=== PATIENT | female | born 1945 | race African-American/Black ===

== ENCOUNTER 2016-09-26 15:16 | Inpatient (IN) | payer MEDICARE, OTHER ==
[~2016-09-26] VITALS: Ht 160 cm; Wt 92.5 kg
[~2016-09-26 15:16] MED LIST: ASPI-605 PO; BUME1TAB16 PO; CARI350T27 PO; Hydralazine Hcl PO; Isosorbide Dinitrate PO; LORA1TAB PO; METF500T4 PO; METO25TA20 PO; NIFE10CA2 PO
[2016-09-26] MEDS ORDERED: FERR-58 PO (16:00)
[2016-09-26] MEDS ORDERED: FURO40TA5 PO (16:00)
[2016-09-26] MEDS ORDERED: ATOR10TA PO (16:00)
[2016-09-26] MEDS ORDERED: AMLO10TA2 PO (16:00)
[2016-09-26] MEDS ORDERED: HYDR100T27 PO (16:00)
[2016-09-26] MEDS ORDERED: CARV25TA2 PO (16:00)
[2016-09-26] MEDS ORDERED: LEVO500T15 PO (16:00)
[2016-09-26 16:02] LABS: ANION GAP 12 (5-14); CALCIUM, SERUM 8.7 mg/dL (8.5-10.1); CARBON DIOXIDE 26 mmol/L (21-32); CHLORIDE 111 mmol/L (98-107); CREATININE 1.6 mg/dL (0.6-1.3); GLUCOSE 197 mg/dL (74-106); POTASSIUM 3.4 mmol/L (3.5-5.1); SODIUM SERUM 145 mmol/L (136-145); UREA NITROGEN, BLOOD 30 mg/dL (7-18)
[2016-09-26] MEDS ORDERED: ISOS40TA16 PO (16:02)
[2016-09-26] MEDS ORDERED: CLON1PAT2 TD (16:03)
[2016-09-26 16:07] LABS: WHITE BLOOD COUNT (AUTO) 6.8 K/uL (4.3-11.0)
[2016-09-26 16:08] LABS: BASOPHILS % (AUTO) 0.5 % (0.0-2.0); DIFF TOTAL % 100 %; EOSINOPHILS # (AUTO) 0.9 /CMM (0.0-0.7); EOSINOPHILS % (AUTO) 12.8 % (0.0-6.0); HEMATOCRIT 28 % (33-45); HEMOGLOBIN 9.3 g/dL (11.5-14.8); LYMPHOCYTES # (AUTO) 0.7 /CMM (0.8-4.8); LYMPHOCYTES % (AUTO) 9.9 % (20.0-44.0); MEAN CORPUSCULAR HEMOGLOBIN 28 PG (26.0-33.0); MEAN CORPUSCULAR HGB CONC 33 g/dl (31.0-36.0); MEAN CORPUSCULAR VOLUME 84 fL (82-100); MONOCYTES # (AUTO) 0.4 /CMM (0.1-1.30); MONOCYTES % (AUTO) 5.9 % (2.0-12.0); NEUTROPHILS # (AUTO) 4.8 /CMM (1.8-8.9); NEUTROPHILS % (AUTO) 70.9 % (43.0-81.0); PLATELET COUNT (AUTO) 248 /CMM (150-450); RED BLOOD CELL COUNT(AUTO) 3.36 MIL/uL (4.0-5.2)
[2016-09-26 16:10] LABS: INR 0.96 (0.87-1.13); PROTHROMBIN TIME 10.1 SECS (9.5-12.7)
[2016-09-26 16:12] LABS: TROPONIN I < 0.017 ng/mL (0.00-0.056)
[2016-09-26 16:14] LABS: ALANINE AMINOTRANSFERASE 14 U/L (12-78); ALBUMIN 3.1 g/dL (3.4-5.0); ASPARTATE AMINOTRANSFERASE 15 U/L (15-37); BILIRUBIN,DIRECT 0.1 mg/dL (0.0-0.2); BILIRUBIN,TOTAL 0.5 mg/dL (0.2-1.0); INDIRECT BILIRUBIN 0.4 mg/dL (0.0-1.1)
[2016-09-26 16:23] LABS: LACTIC ACID 1.1 mmol/L (0.4-2.0)
[2016-09-26] MEDS ORDERED: NITROGLYCERIN PACKET 1 GM PACKET ONE (16:27)
[2016-09-26] MEDS ORDERED: ASPIRIN 81 MG TAB.CHEW ONE (16:27)
[2016-09-26] MEDS ORDERED: FUROSEMIDE 40 MG/4 ML VIAL ONE (16:27)
[2016-09-26] MEDS ORDERED: FUROSEMIDE 40 MG/4 ML VIAL IV ONE (16:30)
[2016-09-26] MEDS ORDERED: ASPIRIN 81 MG TAB.CHEW PO ONE (16:30)
[2016-09-26] MEDS ORDERED: NITROGLYCERIN PACKET 1 GM PACKET TD ONE (16:30)
[2016-09-26] MEDS ORDERED: hydrALAZINE HCL IV 20 MG VIAL ONE (16:50)
[2016-09-26] MEDS ORDERED: hydrALAZINE HCL IV 20 MG VIAL IV ONE (17:00)
[2016-09-26 19:00] VITALS: BP 230/76
[2016-09-26] MEDS ORDERED: ONDANSETRON HCL/PF 4 MG/2 ML VIAL IVP PRN (19:00)
[2016-09-26] MEDS ORDERED: MAG HYDROX/AL HYDROX/SIMETH 30 ML UDC PO PRN (19:00)
[2016-09-26] MEDS ORDERED: Z GUARD REMEDY 2 OZ OINT TP PRN (19:00)
[2016-09-26] MEDS ORDERED: ACETAMINOPHEN 325 MG TABLET PO PRN (19:00)
[2016-09-26] MEDS ORDERED: MAGNESIUM HYDROXIDE 30 ML UDC PO PRN (19:00)
[2016-09-26] MEDS ORDERED: HYDROCODONE/APAP 5/325MG 1 EACH TABLET PO PRN (19:00)
[2016-09-26 20:00] VITALS: BP 211/105
[2016-09-26] MEDS ORDERED: LORAZEPAM 1 MG TABLET PO STA (22:03)
[2016-09-26] MEDS ORDERED: CARVEDILOL 12.5 MG TABLET PO STA (22:03)
[2016-09-26] MEDS ORDERED: hydrALAZINE HCL 50 MG TABLET PO STA (22:03)
[2016-09-26] MEDS ORDERED: hydrALAZINE HCL 50 MG TABLET ONE (22:08)
[2016-09-26] MEDS ORDERED: CARVEDILOL 12.5 MG TABLET ONE (22:09)
[2016-09-26] MEDS ORDERED: LORAZEPAM 1 MG TABLET ONE (22:10)
[2016-09-26] MEDS: ATORVASTATIN 10 MG TABLET PO SCH (22:20)
[2016-09-26] MEDS: FERROUS SULFATE (325 MG) 325 MG/TAB TABLET PO SCH (22:20)
[2016-09-26] MEDS: ENOXAPARIN SODIUM 40 MG/0.4 ML DISP.SYRIN SQ SCH (22:23)
[2016-09-27] VITALS: BP 162/74
[2016-09-27 04:00] VITALS: BP 168/81
[2016-09-27 07:01] LABS: BASOPHILS % (AUTO) 0.5 % (0.0-2.0); DIFF TOTAL % 100 %; EOSINOPHILS # (AUTO) 0.9 /CMM (0.0-0.7); EOSINOPHILS % (AUTO) 13.8 % (0.0-6.0); HEMATOCRIT 27 % (33-45); HEMOGLOBIN 8.6 g/dL (11.5-14.8); LYMPHOCYTES # (AUTO) 0.8 /CMM (0.8-4.8); LYMPHOCYTES % (AUTO) 11.3 % (20.0-44.0); MEAN CORPUSCULAR HEMOGLOBIN 28 PG (26.0-33.0); MEAN CORPUSCULAR HGB CONC 33 g/dl (31.0-36.0); MEAN CORPUSCULAR VOLUME 85 fL (82-100); MONOCYTES # (AUTO) 0.4 /CMM (0.1-1.30); MONOCYTES % (AUTO) 6.3 % (2.0-12.0); NEUTROPHILS # (AUTO) 4.6 /CMM (1.8-8.9); NEUTROPHILS % (AUTO) 68.1 % (43.0-81.0); PLATELET COUNT (AUTO) 232 /CMM (150-450); WHITE BLOOD COUNT (AUTO) 6.8 K/uL (4.3-11.0)
[2016-09-27 07:38] LABS: CALCIUM, SERUM 8.5 mg/dL (8.5-10.1); CREATININE 1.5 mg/dL (0.6-1.3); PHOSPHORUS 4.4 mg/dL (2.5-4.9); POTASSIUM 3.6 mmol/L (3.5-5.1)
[2016-09-27 08:00] VITALS: BP 190/83
[2016-09-27] MEDS: ASPIRIN EC 81 MG TABLET.DR PO SCH (08:13)
[2016-09-27] MEDS: FERROUS SULFATE (325 MG) 325 MG/TAB TABLET PO SCH ×2 (08:13→21:32)
[2016-09-27] MEDS: hydrALAZINE HCL 50 MG TABLET PO SCH ×3 (08:14→16:25)
[2016-09-27] MEDS: PANTOPRAZOLE 40 MG TABLET.DR PO SCH (08:14)
[2016-09-27] MEDS: ISOSORBIDE DINITRATE (20MG) 20 MG TABLET PO SCH ×3 (08:14→16:25)
[2016-09-27] MEDS: AMLODIPINE BESYLATE 10 MG TABLET PO SCH (08:16)
[2016-09-27] MEDS: CARVEDILOL 12.5 MG TABLET PO SCH ×2 (08:16→21:32)
[2016-09-27] MEDS: FUROSEMIDE 40 MG/4 ML VIAL IV SCH ×3 (08:30→16:25)
[2016-09-27] MEDS: POTASSIUM CHLORIDE 20 MEQ TAB.PRT.SR PO SCH ×2 (08:33→10:26)
[2016-09-27] MEDS: NITROGLYCERIN 30 GM TUBE TP SCH ×2 (08:35→21:34)
[2016-09-27] MEDS ORDERED: FUROSEMIDE 40 MG/4 ML VIAL IV SCH (09:00)
[2016-09-27 16:00] VITALS: BP 157/74
[2016-09-27] MEDS ORDERED: IBUPROFEN 600 MG TABLET PO PRN (16:00)
[2016-09-27] MEDS: MORPHINE SULFATE INJ 2 MG/ML DISP.SYRIN IV PRN (19:17)
[2016-09-27 20:00] VITALS: BP 139/65
[2016-09-27] MEDS: ATORVASTATIN 10 MG TABLET PO SCH (21:32)
[2016-09-27] MEDS: ENOXAPARIN SODIUM 40 MG/0.4 ML DISP.SYRIN SQ SCH (21:33)
[2016-09-27] MEDS: ZOLPIDEM TARTRATE 5 MG TABLET PO PRN (23:02)
[2016-09-28 04:00] VITALS: BP 143/74
[2016-09-28 07:24] LABS: BASOPHILS % (AUTO) 0.3 % (0.0-2.0); DIFF TOTAL % 100 %; EOSINOPHILS # (AUTO) 0.9 /CMM (0.0-0.7); EOSINOPHILS % (AUTO) 10.1 % (0.0-6.0); HEMATOCRIT 24 % (33-45); HEMOGLOBIN 7.9 g/dL (11.5-14.8); LYMPHOCYTES # (AUTO) 0.7 /CMM (0.8-4.8); LYMPHOCYTES % (AUTO) 8.6 % (20.0-44.0); MEAN CORPUSCULAR HEMOGLOBIN 28 PG (26.0-33.0); MEAN CORPUSCULAR HGB CONC 33 g/dl (31.0-36.0); MEAN CORPUSCULAR VOLUME 85 fL (82-100); MONOCYTES # (AUTO) 0.5 /CMM (0.1-1.30); MONOCYTES % (AUTO) 6.2 % (2.0-12.0); NEUTROPHILS # (AUTO) 6.4 /CMM (1.8-8.9); NEUTROPHILS % (AUTO) 74.8 % (43.0-81.0); PLATELET COUNT (AUTO) 242 /CMM (150-450); RED BLOOD CELL COUNT(AUTO) 2.89 MIL/uL (4.0-5.2); WHITE BLOOD COUNT (AUTO) 8.6 K/uL (4.3-11.0)
[2016-09-28 07:46] LABS: ALBUMIN 2.8 g/dL (3.4-5.0); BILIRUBIN,TOTAL 0.4 mg/dL (0.2-1.0); CALCIUM, SERUM 8.3 mg/dL (8.5-10.1); CREATININE 1.9 mg/dL (0.6-1.3); PHOSPHORUS 4.3 mg/dL (2.5-4.9); POTASSIUM 3.9 mmol/L (3.5-5.1); TOTAL PROTEIN, SERUM 6.4 g/dL (6.4-8.2)
[2016-09-28 08:00] VITALS: BP 153/59
[2016-09-28] MEDS: AMLODIPINE BESYLATE 10 MG TABLET PO SCH (08:04)
[2016-09-28] MEDS: ASPIRIN EC 81 MG TABLET.DR PO SCH (08:04)
[2016-09-28] MEDS: FERROUS SULFATE (325 MG) 325 MG/TAB TABLET PO SCH ×2 (08:05→21:10)
[2016-09-28] MEDS: hydrALAZINE HCL 50 MG TABLET PO SCH ×3 (08:05→16:59)
[2016-09-28] MEDS: CARVEDILOL 12.5 MG TABLET PO SCH ×2 (08:05→21:10)
[2016-09-28] MEDS: PANTOPRAZOLE 40 MG TABLET.DR PO SCH (08:05)
[2016-09-28] MEDS: ISOSORBIDE DINITRATE (20MG) 20 MG TABLET PO SCH ×3 (08:06→17:00)
[2016-09-28] MEDS: NITROGLYCERIN 30 GM TUBE TP SCH ×2 (08:06→21:10)
[2016-09-28 10:23] LABS: IRON, SERUM 42 ug/dl (50-175); PERCENT SATURATION 16 % (14-33); TOTAL IRON BINDING CAPACITY 256 ug/dl (250-450)
[2016-09-28] MEDS: METOLAZONE 2.5 MG TABLET PO SCH (11:19)
[2016-09-28] MEDS: EPOETIN ALFA (10,000 UNIT) 10,000 UNIT/ML VIAL SQ SCH (11:20)
[2016-09-28 16:00] VITALS: BP 124/56
[2016-09-28 20:00] VITALS: BP 142/54
[2016-09-28] MEDS: ATORVASTATIN 10 MG TABLET PO SCH (21:11)
[2016-09-28] MEDS: ENOXAPARIN SODIUM 40 MG/0.4 ML DISP.SYRIN SQ SCH (21:12)
[2016-09-28] MEDS: ZOLPIDEM TARTRATE 5 MG TABLET PO PRN (23:03)
[2016-09-29 04:00] VITALS: BP 149/63
[2016-09-29] MEDS: MORPHINE SULFATE INJ 2 MG/ML DISP.SYRIN IV PRN ×2 (05:59→23:28)
[2016-09-29 08:00] VITALS: BP 148/61
[2016-09-29 10:52] LABS: BASOPHILS % (AUTO) 0.4 % (0.0-2.0); DIFF TOTAL % 100 %; EOSINOPHILS # (AUTO) 0.6 /CMM (0.0-0.7); EOSINOPHILS % (AUTO) 7.1 % (0.0-6.0); HEMATOCRIT 25 % (33-45); LYMPHOCYTES # (AUTO) 0.7 /CMM (0.8-4.8); LYMPHOCYTES % (AUTO) 8.5 % (20.0-44.0); MEAN CORPUSCULAR HEMOGLOBIN 27 PG (26.0-33.0); MEAN CORPUSCULAR HGB CONC 33 g/dl (31.0-36.0); MEAN CORPUSCULAR VOLUME 84 fL (82-100); MONOCYTES # (AUTO) 0.7 /CMM (0.1-1.30); MONOCYTES % (AUTO) 8.1 % (2.0-12.0); NEUTROPHILS # (AUTO) 6.4 /CMM (1.8-8.9); NEUTROPHILS % (AUTO) 75.9 % (43.0-81.0); PLATELET COUNT (AUTO) 223 /CMM (150-450); RED BLOOD CELL COUNT(AUTO) 2.91 MIL/uL (4.0-5.2); WHITE BLOOD COUNT (AUTO) 8.5 K/uL (4.3-11.0)
[2016-09-29 11:11] LABS: CALCIUM, SERUM 8.3 mg/dL (8.5-10.1); CREATININE 1.8 mg/dL (0.6-1.3); PHOSPHORUS 3.5 mg/dL (2.5-4.9); POTASSIUM 3.7 mmol/L (3.5-5.1)
[2016-09-29] MEDS: CARVEDILOL 12.5 MG TABLET PO SCH ×2 (11:59→22:01)
[2016-09-29] MEDS: ASPIRIN EC 81 MG TABLET.DR PO SCH (11:59)
[2016-09-29] MEDS: ISOSORBIDE DINITRATE (20MG) 20 MG TABLET PO SCH ×3 (11:59→18:03)
[2016-09-29] MEDS: hydrALAZINE HCL 50 MG TABLET PO SCH ×3 (12:00→18:03)
[2016-09-29] MEDS: METOLAZONE 2.5 MG TABLET PO SCH (12:00)
[2016-09-29] MEDS: PANTOPRAZOLE 40 MG TABLET.DR PO SCH (12:00)
[2016-09-29] MEDS: FERROUS SULFATE (325 MG) 325 MG/TAB TABLET PO SCH ×2 (12:00→22:00)
[2016-09-29] MEDS: EPOETIN ALFA (10,000 UNIT) 10,000 UNIT/ML VIAL SQ SCH (12:03)
[2016-09-29] MEDS: AMLODIPINE BESYLATE 10 MG TABLET PO SCH (12:06)
[2016-09-29] MEDS: NITROGLYCERIN 30 GM TUBE TP SCH ×2 (12:11→22:01)
[2016-09-29 12:42] VITALS: BP 187/77
[2016-09-29 16:00] VITALS: BP 113/68
[2016-09-29 20:00] VITALS: BP_SYST 114; BP_SYST 119; BP_DIAS 58
[2016-09-29] MEDS: ATORVASTATIN 10 MG TABLET PO SCH (22:00)
[2016-09-29] MEDS: ENOXAPARIN SODIUM 40 MG/0.4 ML DISP.SYRIN SQ SCH (22:10)
[2016-09-30 04:00] VITALS: BP 112/49
[2016-09-30 06:28] LABS: BASOPHILS % (AUTO) 0.4 % (0.0-2.0); DIFF TOTAL % 100 %; EOSINOPHILS # (AUTO) 0.6 /CMM (0.0-0.7); EOSINOPHILS % (AUTO) 7.6 % (0.0-6.0); HEMATOCRIT 24 % (33-45); HEMOGLOBIN 7.8 g/dL (11.5-14.8); LYMPHOCYTES % (AUTO) 12.7 % (20.0-44.0); MEAN CORPUSCULAR HEMOGLOBIN 28 PG (26.0-33.0); MEAN CORPUSCULAR HGB CONC 33 g/dl (31.0-36.0); MEAN CORPUSCULAR VOLUME 84 fL (82-100); MONOCYTES # (AUTO) 0.5 /CMM (0.1-1.30); MONOCYTES % (AUTO) 7.1 % (2.0-12.0); NEUTROPHILS # (AUTO) 5.5 /CMM (1.8-8.9); NEUTROPHILS % (AUTO) 72.2 % (43.0-81.0); PLATELET COUNT (AUTO) 192 /CMM (150-450); WHITE BLOOD COUNT (AUTO) 7.6 K/uL (4.3-11.0)
[2016-09-30 06:46] LABS: CALCIUM, SERUM 8.5 mg/dL (8.5-10.1); PHOSPHORUS 3.7 mg/dL (2.5-4.9)
[2016-09-30 08:00] VITALS: BP 136/56
[2016-09-30] MEDS: PANTOPRAZOLE 40 MG TABLET.DR PO SCH (08:06)
[2016-09-30] MEDS: CARVEDILOL 12.5 MG TABLET PO SCH (08:08)
[2016-09-30] MEDS: METOLAZONE 2.5 MG TABLET PO SCH (08:09)
[2016-09-30] MEDS: AMLODIPINE BESYLATE 10 MG TABLET PO SCH (08:09)
[2016-09-30] MEDS: ASPIRIN EC 81 MG TABLET.DR PO SCH (08:10)
[2016-09-30] MEDS: FERROUS SULFATE (325 MG) 325 MG/TAB TABLET PO SCH (08:11)
[2016-09-30] MEDS: NITROGLYCERIN 30 GM TUBE TP SCH (08:12)
[2016-09-30] MEDS: hydrALAZINE HCL 50 MG TABLET PO SCH ×2 (08:16→12:15)
[2016-09-30] MEDS: ISOSORBIDE DINITRATE (20MG) 20 MG TABLET PO SCH ×2 (08:16→12:15)
[2016-09-30] MEDS: EPOETIN ALFA (10,000 UNIT) 10,000 UNIT/ML VIAL SQ SCH (10:05)
[2016-09-30 12:15] VITALS: BP 144/60
[2016-09-30] MEDS ORDERED: BUMETANIDE (1 MG) 1 MG TABLET PO SCH (17:00)
[2016-10-02] MEDS ORDERED: CLONIDINE HCL 0.2MG/24H PTWK 1 EA PATCH TD SCH (09:00)
== END 2016-09-30 14:58 | disposition home or self-care (01) | DRG 291 ==
LOC: ER 15:21 → TELE-TD 18:23 → MEDSG1 09-27 08:58
PROVIDERS: ADMIT Internal Medicine; ATTEND Internal Medicine
DX: I13.0 Hypertensive heart and chronic kidney disease with heart failure and stage 1 through stage 4 chronic kidney disease, or unspecified chronic kidney disease (principal); I50.33 Acute on chronic diastolic (congestive) heart failure; E44.0 Moderate protein-calorie malnutrition; N17.9 Acute kidney failure, unspecified; E78.5 Hyperlipidemia, unspecified; N18.9 Chronic kidney disease, unspecified; E11.22 Type 2 diabetes mellitus with diabetic chronic kidney disease; Z90.5 Acquired absence of kidney; M54.5 Low back pain; G89.29 Other chronic pain; Z68.36 Body mass index [BMI] 36.0-36.9, adult; E66.9 Obesity, unspecified; E87.6 Hypokalemia; M47.814 Spondylosis without myelopathy or radiculopathy, thoracic region
CPT/HCPCS: 36415; 71010-TC; 76942-TC; 80048-TC; 80053-TC; 80076-TC; 82728-TC; 82962-TC; 83540-TC; 83605-TC; 83735-TC; 83880; 84100-TC; 84484-TC; 85025-TC; 85730-TC; 87040-TC; 87081-TC; 94799-TC; A4606; J0360; J0885; J1650; J1940; J2270; Z7610

== ENCOUNTER 2016-11-10 18:29 | Inpatient (IN) | payer MEDICARE, OTHER ==
[~2016-11-10] VITALS: Ht 165.1 cm; Wt 95.3 kg
[~2016-11-10 18:29] MED LIST changes: +AMLO10TA2 PO; +ATOR10TA PO; -BUME1TAB16 PO; -CARI350T27 PO; +CARV25TA2 PO; +CLON1PAT2 TD; +FERR-58 PO; +FURO40TA5 PO; +HYDR100T27 PO; -Hydralazine Hcl PO; +ISOS40TA16 PO; -Isosorbide Dinitrate PO; -LORA1TAB PO; -METF500T4 PO; -METO25TA20 PO; -NIFE10CA2 PO
--- NOTE | 2016-11-10 18:32 | NUR ---
pt ambulatory to er bed 11 c/o sob x 1 week and states worst since yesterday. hx of chf also c/o intermittent chest pain. placed on monitor. hypertensive captain's assistant. awaiting md ayoub.
--- NOTE | 2016-11-10 18:46 | NUR ---
laborer pole crew at bedside for blood draw.
[2016-11-10 18:51] LABS: BASOPHILS % (AUTO) 0.4 % (0.0-2.0); EOSINOPHILS # (AUTO) 0.3 /CMM (0.0-0.7); EOSINOPHILS % (AUTO) 4.7 % (0.0-6.0); HEMATOCRIT 29 % (33-45); HEMOGLOBIN 9.3 g/dL (11.5-14.8); LYMPHOCYTES # (AUTO) 0.9 /CMM (0.8-4.8); LYMPHOCYTES % (AUTO) 12.5 % (20.0-44.0); MEAN CORPUSCULAR HEMOGLOBIN 26 PG (26.0-33.0); MEAN CORPUSCULAR HGB CONC 33 g/dl (31.0-36.0); MEAN CORPUSCULAR VOLUME 79 fL (82-100); MONOCYTES # (AUTO) 0.5 /CMM (0.1-1.30); MONOCYTES % (AUTO) 6.5 % (2.0-12.0); NEUTROPHILS # (AUTO) 5.2 /CMM (1.8-8.9); NEUTROPHILS % (AUTO) 75.9 % (43.0-81.0); PLATELET COUNT (AUTO) 297 /CMM (150-450); RDW COEFFICIENT OF VARIATION 15.9 (11.5-15.0); WHITE BLOOD COUNT (AUTO) 6.9 K/uL (4.3-11.0)
--- NOTE | 2016-11-10 19:02 | NUR ---
dr singleton at bedside for eval.
[2016-11-10 19:05] LABS: INR 0.98 (0.87-1.13); PROTHROMBIN TIME 10.2 SECS (9.5-12.7)
--- NOTE | 2016-11-10 19:05 | NUR ---
radiology at bedside for chest xray.
[2016-11-10 19:10] LABS: TROPONIN I < 0.017 ng/mL (0.00-0.056)
[2016-11-10 19:20] LABS: ALANINE AMINOTRANSFERASE 29 U/L (12-78); ALBUMIN 3.7 g/dL (3.4-5.0); ALKALINE PHOSPHATASE 106 U/L (46-116); ASPARTATE AMINOTRANSFERASE 27 U/L (15-37); B-TYPE NATRIURETIC PEPTIDE 2359 PG/ML (0-125); BILIRUBIN,DIRECT 0.2 mg/dL (0.0-0.2); BILIRUBIN,TOTAL 0.6 mg/dL (0.2-1.0); CALCIUM, SERUM 9.4 mg/dL (8.5-10.1); CARBON DIOXIDE 27 mmol/L (21-32); CHLORIDE 109 mmol/L (98-107); CREATININE 1.5 mg/dL (0.6-1.3); GLUCOSE 151 mg/dL (74-106); POTASSIUM 3.6 mmol/L (3.5-5.1); SODIUM SERUM 145 mmol/L (136-145); TOTAL PROTEIN, SERUM 7.7 g/dL (6.4-8.2); UREA NITROGEN, BLOOD 34 mg/dL (7-18)
--- NOTE | 2016-11-10 19:50 | NUR ---
PAGED JOB CHECKER FOR [employer] DR DEJESUS
[2016-11-10] MEDS ORDERED: FUROSEMIDE 40 MG/4 ML VIAL ONE (19:56)
[2016-11-10] MEDS ORDERED: NITROGLYCERIN PACKET 1 GM PACKET ONE (19:56)
[2016-11-10] MEDS ORDERED: FUROSEMIDE 40 MG/4 ML VIAL IV ONE (20:00)
[2016-11-10] MEDS ORDERED: NITROGLYCERIN PACKET 1 GM PACKET TOP ONE (20:00)
[2016-11-10] MEDS ORDERED: MORPHINE SULFATE INJ 2 MG/ML DISP.SYRIN ONE (20:15)
--- NOTE | 2016-11-10 20:25 | NUR ---
report given to gem. pt awaiting transfer to floor.
[2016-11-10] MEDS ORDERED: MORPHINE SULFATE INJ 2 MG/ML DISP.SYRIN IV PRN ×2 (20:30→21:00)
[2016-11-10] MEDS ORDERED: MORPHINE SULFATE INJ 2 MG/ML DISP.SYRIN IV ONE (20:30)
[2016-11-10 20:40] VITALS: BP 173/94
--- NOTE | 2016-11-10 20:40 | NUR ---
ADMISSION NOTES: received report from jose barber rn. pt came in because of sob and chest discomfort, pt brought to the unit via gurney, a/o x4, on 2l via nc, respiration even and unlabored, pt stated she still have some chest discomfort 5/10 and its tolerable as she received morphine in er. oriented pt to unit policy and hourly rounding. vs taken and recorded. made comfortable. inventory of belonging completed by nella oliver. pt's own home medication sent to pharmacy. took pictures of pt's skin issues, please see skin assessment tab. ble kept offloaded. pt on tele sinus rhythm hr 83. iv access on left ac g 20 patent and flushing well, on hl. safety precautions for fall initiated, call light in reach. will continue to monitor
[2016-11-10 20:45] VITALS: BP 162/85
[2016-11-10 20:53] VITALS: BP 162/85
[2016-11-10] MEDS ORDERED: FERROUS SULFATE (325 MG) 325 MG/TAB TABLET PO SCH (21:00)
[2016-11-10] MEDS ORDERED: ACETAMINOPHEN 325 MG TABLET PO PRN (21:00)
[2016-11-10] MEDS ORDERED: Z GUARD REMEDY 2 OZ OINT TP PRN (21:00)
[2016-11-10] MEDS ORDERED: HYDROCODONE/APAP 5/325MG 1 EACH TABLET PO PRN (21:00)
[2016-11-10] MEDS ORDERED: MAGNESIUM HYDROXIDE 30 ML UDC PO PRN (21:00)
[2016-11-10] MEDS ORDERED: MAG HYDROX/AL HYDROX/SIMETH 30 ML UDC PO PRN (21:00)
[2016-11-10] MEDS ORDERED: hydrALAZINE HCL 25 MG TABLET PO PRN (21:00)
[2016-11-10] MEDS ORDERED: ONDANSETRON HCL/PF 4 MG/2 ML VIAL IVP PRN (21:00)
[2016-11-10 21:40] VITALS: BP 178/84
[2016-11-10] MEDS ORDERED: hydrALAZINE HCL 25 MG TABLET ONE (21:42)
[2016-11-10] MEDS ORDERED: FERROUS SULFATE (325 MG) 325 MG/TAB TABLET ONE (21:43)
[2016-11-10] MEDS ORDERED: ATORVASTATIN 10 MG TABLET ONE (21:44)
[2016-11-10] MEDS: ATORVASTATIN 10 MG TABLET PO SCH (21:49)
--- NOTE | 2016-11-10 21:50 | NUR ---
NET MOBILE DEVELOPER NOTES: PRN HYDRALAZINE 25MG TAB PO ADMINISTERED TO THE PT FOR BP 178/84 HR 84. PT DENIES ANY LIGHT HEADEDNESS OR DIZZINESS. EDUCATE PT REGARDING MEDICATION JOHANNY EFFECT. WILL CONTINUE TO MONITOR AND REASSESS
--- NOTE | 2016-11-10 22:00 | NUR ---
telemetry monitor notes: pt has left cw nitro bid patch
--- NOTE | 2016-11-10 22:10 | NUR ---
senior telecommunications specialist notes: pt stated she has $80.00 cedeno, when asked pt that we need to count her money, she refused, and stated she will keep it on her bag, educate pt regarding importance of counting it for documentation purposes, fair and safe inventory. however pt refused.
[2016-11-10 22:30] VITALS: BP 164/79
--- NOTE | 2016-11-10 23:48 | NUR ---
telephone betting clerk notes: reassess pt and stated she's okay for now, no pain or discomfort at this time as pt verbalized,
[2016-11-11] VITALS: BP_SYST 158; BP_DIAS 83; BP_DIAS 85
[2016-11-11 04:00] VITALS: BP 142/85
[2016-11-11 04:37] VITALS: BP 142/85
--- NOTE | 2016-11-11 06:43 | NUR ---
telemetry nurse closing notes: pt on bed, awake, remains on 2l via nc, respiration even and unlabored, denies any sob, chest pain or discomfort. left ac iv access remains patent and flushing well, on hl. on sinus rhythm hr 69. vs remains stable, needs attended. ble kept offloaded. safety precautions for fall remains engaged. call light in reach. will endorse to day rn for edgar.
[2016-11-11 06:49] LABS: BASOPHILS % (AUTO) 0.4 % (0.0-2.0); EOSINOPHILS # (AUTO) 0.4 /CMM (0.0-0.7); EOSINOPHILS % (AUTO) 5.9 % (0.0-6.0); HEMATOCRIT 23 % (33-45); HEMOGLOBIN 7.3 g/dL (11.5-14.8); LYMPHOCYTES # (AUTO) 0.8 /CMM (0.8-4.8); LYMPHOCYTES % (AUTO) 12.7 % (20.0-44.0); MEAN CORPUSCULAR HEMOGLOBIN 26 PG (26.0-33.0); MEAN CORPUSCULAR HGB CONC 32 g/dl (31.0-36.0); MEAN CORPUSCULAR VOLUME 80 fL (82-100); MONOCYTES # (AUTO) 0.5 /CMM (0.1-1.30); MONOCYTES % (AUTO) 8.8 % (2.0-12.0); NEUTROPHILS # (AUTO) 4.3 /CMM (1.8-8.9); NEUTROPHILS % (AUTO) 72.2 % (43.0-81.0); PLATELET COUNT (AUTO) 226 /CMM (150-450); RDW COEFFICIENT OF VARIATION 16.9 (11.5-15.0); RED BLOOD CELL COUNT(AUTO) 2.87 MIL/uL (4.0-5.2); WHITE BLOOD COUNT (AUTO) 5.9 K/uL (4.3-11.0)
--- NOTE | 2016-11-11 07:10 | NUR ---
PAPITO OLIVO NOTES Patient in bed, asleep, no s/sx of distress at this time, breathing even and unlabored, no sob noted, safety measures in placed, call light within reach, will continue to monitor. Addendum: 11/11/16 at 0730 by ELIZA RODRÍGUEZ RN correction: PAPITO JIMENEZ
[2016-11-11 07:33] LABS: CALCIUM, SERUM 8.4 mg/dL (8.5-10.1); CREATININE 1.5 mg/dL (0.6-1.3); MAGNESIUM 2.2 mg/dL (1.8-2.4); PHOSPHORUS 4.5 mg/dL (2.5-4.9); POTASSIUM 3.6 mmol/L (3.5-5.1)
[2016-11-11 08:00] VITALS: BP 147/80
[2016-11-11] MEDS: PANTOPRAZOLE 40 MG TABLET.DR PO SCH (09:10)
[2016-11-11] MEDS: FUROSEMIDE 40 MG/4 ML VIAL IV SCH ×3 (09:11→16:44)
[2016-11-11] MEDS: FERROUS SULFATE (325 MG) 325 MG/TAB TABLET PO SCH ×2 (09:11→20:36)
[2016-11-11] MEDS: hydrALAZINE HCL 50 MG TABLET PO SCH ×3 (09:12→16:45)
[2016-11-11] MEDS: ASPIRIN EC 81 MG TABLET.DR PO SCH (09:12)
[2016-11-11] MEDS: CARVEDILOL 12.5 MG TABLET PO SCH ×2 (09:12→20:37)
[2016-11-11] MEDS: ISOSORBIDE DINITRATE (20MG) 20 MG TABLET PO SCH ×3 (09:12→16:45)
[2016-11-11] MEDS: AMLODIPINE BESYLATE 10 MG TABLET PO SCH (09:13)
--- NOTE | 2016-11-11 09:30 | NUR ---
RN MS NOTES INFORMED WILDER SOFTWARE QUALITY TEST ENGINEER REGARDING LOW H&H RESULT, NO NEW ORDER AT THIS TIME.
[2016-11-11 13:22] LABS: FERRITIN 22 ng/mL (8-388)
--- NOTE | 2016-11-11 15:25 | NUR ---
RN MS NOTES Patient in bed, asleep but easily arousable, denies pain or discomfort at this time, no distress noted, call light within reach, will continue to monitor.
[2016-11-11 15:54] LABS: IRON, SERUM 144 ug/dl (50-175); TOTAL IRON BINDING CAPACITY 294 ug/dl (250-450)
[2016-11-11 16:00] VITALS: BP_SYST 140; BP_SYST 141; BP_DIAS 71
--- NOTE | 2016-11-11 17:08 | NUR ---
RN MS NOTES Patient's UA appears to be cloudy and with odor, patient denies pain during urination, urgency or burning sensation, afebrile, vs stable, Radha Downey WIRELESS SALES CONSULTANT made aware, and received new order for UA profile. Order noted and carried out.
--- NOTE | 2016-11-11 18:49 | NUR ---
RN MS NOTES Patient in bed, eating dinner, family at bedside, no s/sx of distress noted, patient reminded to give urine and stool sample, patient understood. Safety measures in placed, call light withinr each, will endorse to shift stacker for edgar.
[2016-11-11 20:00] VITALS: BP 144/71
--- NOTE | 2016-11-11 20:33 | NUR ---
MS/RN OPENNING NOTES RECEIVED PATIENT ALERT, ORIENTED X4, ABLE TO VERBALIZE NEEDS.FAMILY WAS AT BEDSIDE. INFORMED MEDICATION AND LABS, URINE COLLECTED AND SENT TO LAB. B/P CHECK NO S/S OF SOB OR DISTRESS. INFORMED THE NEED TO CALL FOR ASSISTANCE AT ALL TIMES. PATIENT VERBALIZE UNDERSTANDING.
[2016-11-11] MEDS: ATORVASTATIN 10 MG TABLET PO SCH (20:55)
[2016-11-11] MEDS ORDERED: ENOXAPARIN SODIUM 40 MG/0.4 ML DISP.SYRIN SQ SCH (21:00)
[2016-11-12] VITALS (9 sets, daily range): BP systolic 137–152; BP diastolic 61–78
--- NOTE | 2016-11-12 05:31 | NUR ---
MS/RN NOTES PATIENT IN BED. ABLE TO SLEEP DURING THE NIGHT. W/ NO S/S OF SOB OR DISTRESS. ALERT, ORIENTED. KEPT SAFETY INTERVENTION AT ALL TIMES.PROVIDE WARM BLANKETS. CALL LIGHTS WITHIN REACH. WILL CONTINUE TO MONITOR.
--- NOTE | 2016-11-12 06:34 | NUR ---
MS/RN CLOSING NOTES PATIENT IN BED ABLE TO SLEEP. NO S/S OF SOB OR DISTRESS. WILL CONTINUE TO MONITOR ANF ENDORSE TO AM RN REGARDING ARIAN.
--- NOTE | 2016-11-12 07:15 | NUR ---
RN MS NOTES Patient in bed, sleeping but easily arousable, no s/sx of pain or distress noted, no sob, on o2 at 2lpm via nc, needs anticipated and met, safety measures in placed, call light within reach.
[2016-11-12 07:21] LABS: BILIRUBIN,TOTAL 0.4 mg/dL (0.2-1.0); CALCIUM, SERUM 8.5 mg/dL (8.5-10.1); MAGNESIUM 2.4 mg/dL (1.8-2.4); PHOSPHORUS 4.9 mg/dL (2.5-4.9); POTASSIUM 3.6 mmol/L (3.5-5.1); TOTAL PROTEIN, SERUM 6.3 g/dL (6.4-8.2)
[2016-11-12 07:23] LABS: TROPONIN I 0.001 ng/mL (0.00-0.056)
[2016-11-12 07:48] LABS: APPEARANCE,URINE SL CLOUDY (CLEAR); BILIRUBIN,URINE NEGATIVE (NEGATIVE); BLOOD, URINE NEGATIVE Ery/uL (NEGATIVE); COLOR,URINE YELLOW (YELLOW); KETONES,URINE NEGATIVE (NEGATIVE); LEUKOCYTE ESTERASE ,URINE TRACE (NEGATIVE); NITRITE, URINE NEGATIVE (NEGATIVE); PH,URINE 5.5 (5.0-8.0); PROTEIN,URINE 2+ mg/dl (NEGATIVE); UGLUCOSE NEGATIVE (NEGATIVE); UROBILINOGEN,URINE 0.2 EU/dL (0.2)
[2016-11-12 08:11] LABS: ADD URINE CULTURE YES; BACTERIA,URINE Many /HPF (None Seen); RBC,URINE 0-2 /HPF (0-2); SQUAMOUS EPITHELIAL CELL,UR Moderate /HPF (None Seen)
[2016-11-12 08:37] LABS: BASOPHILS % (AUTO) 0.3 % (0.0-2.0); EOSINOPHILS # (AUTO) 0.4 /CMM (0.0-0.7); EOSINOPHILS % (AUTO) 5.8 % (0.0-6.0); HEMATOCRIT 22 % (33-45); HEMOGLOBIN 7.1 g/dL (11.5-14.8); LYMPHOCYTES % (AUTO) 14.2 % (20.0-44.0); MEAN CORPUSCULAR HEMOGLOBIN 26 PG (26.0-33.0); MEAN CORPUSCULAR HGB CONC 32 g/dl (31.0-36.0); MEAN CORPUSCULAR VOLUME 79 fL (82-100); MONOCYTES # (AUTO) 0.5 /CMM (0.1-1.30); MONOCYTES % (AUTO) 7.7 % (2.0-12.0); NEUTROPHILS # (AUTO) 4.8 /CMM (1.8-8.9); PLATELET COUNT (AUTO) 172 /CMM (150-450); RDW COEFFICIENT OF VARIATION 17.2 (11.5-15.0); RED BLOOD CELL COUNT(AUTO) 2.79 MIL/uL (4.0-5.2)
[2016-11-12] MEDS: PANTOPRAZOLE 40 MG TABLET.DR PO SCH (08:44)
[2016-11-12] MEDS: FERROUS SULFATE (325 MG) 325 MG/TAB TABLET PO SCH ×2 (08:44→21:06)
[2016-11-12] MEDS: ISOSORBIDE DINITRATE (20MG) 20 MG TABLET PO SCH ×3 (08:45→18:03)
[2016-11-12] MEDS: ASPIRIN EC 81 MG TABLET.DR PO SCH (08:45)
[2016-11-12] MEDS: hydrALAZINE HCL 50 MG TABLET PO SCH ×3 (08:45→18:03)
[2016-11-12] MEDS: CARVEDILOL 12.5 MG TABLET PO SCH ×2 (08:45→21:50)
[2016-11-12] MEDS: AMLODIPINE BESYLATE 10 MG TABLET PO SCH (08:46)
--- NOTE | 2016-11-12 10:10 | NUR ---
PAPITO MS NOTES Patient seen and examined by Gopal Johnson NP and received new orders for blood transfusion of 1 unit prbc. Order noted and carried out. Patient agreed to the blood transfusion.
[2016-11-12 11:24] LABS: EOSINOPHILS % (MANUAL) 5 % (0-4); LYMPHOCYTES % (MANUAL) 19 % (16-48); MONOCYTES % (MANUAL) 6 % (0-11.0); NEUTROPHILS % (MANUAL) 70 (42-76)
[2016-11-12 11:25] LABS: PLATELET ESTIMATE ADEQUATE
[2016-11-12 11:26] LABS: ANISOCYTOSIS 1+; HYPOCHROMASIA 1+
[2016-11-12 11:27] LABS: WHITE BLOOD COUNT (AUTO) 6.7 K/uL (4.3-11.0)
--- NOTE | 2016-11-12 12:00 | NUR ---
PAPITO MS NOTES Blood transfusion consent signed by patient.
[2016-11-12] MEDS ORDERED: BLOOD IV SET 1 EA INFUS.SET MC ONE (14:34)
[2016-11-12] MEDS ORDERED: IV NS 0.9% 250 ML IV ONE (14:34)
--- NOTE | 2016-11-12 15:45 | NUR ---
RN MS NOTES Blood Transfusion started at 1530 monitored for adverse reaction, no reaction noted at this time, vital signs stable. Will continue to monitor.
--- NOTE | 2016-11-12 18:06 | NUR ---
RN MS NOTES Patient completed blood transfusion, no adverse reaction noted, vital signs stable, patient is in stable condition, all due meds given as ordered,call light placed within reach, will continue to monitor.
--- NOTE | 2016-11-12 18:54 | NUR ---
RN MS NOTES Patient in bed, alert and oriented, family at bedside, no s/sx of distress, no significant change this shift, blood transfusion tolerated well, call light within reach, will endorse to continuous improvement specialist for edgar.
[2016-11-12] MEDS: ENOXAPARIN SODIUM 30 MG/0.3 ML DISP.SYRIN SQ SCH (21:05)
[2016-11-12] MEDS: ATORVASTATIN 10 MG TABLET PO SCH (21:06)
[2016-11-12] MEDS: ZOLPIDEM TARTRATE 5 MG TABLET PO PRN (22:51)
--- NOTE | 2016-11-13 06:37 | NUR ---
pt stated not sleeping well all night ,started getting SOB, back on oxygen 2 liters. deies any pain, still no bm. will continue to monitor.
[2016-11-13 07:34] LABS: BASOPHILS % (AUTO) 0.3 % (0.0-2.0); EOSINOPHILS # (AUTO) 0.4 /CMM (0.0-0.7); EOSINOPHILS % (AUTO) 5.3 % (0.0-6.0); HEMATOCRIT 25 % (33-45); HEMOGLOBIN 8.3 g/dL (11.5-14.8); LYMPHOCYTES # (AUTO) 0.9 /CMM (0.8-4.8); LYMPHOCYTES % (AUTO) 12.8 % (20.0-44.0); MEAN CORPUSCULAR HEMOGLOBIN 27 PG (26.0-33.0); MEAN CORPUSCULAR HGB CONC 33 g/dl (31.0-36.0); MEAN CORPUSCULAR VOLUME 80 fL (82-100); MONOCYTES # (AUTO) 0.4 /CMM (0.1-1.30); MONOCYTES % (AUTO) 6.3 % (2.0-12.0); NEUTROPHILS # (AUTO) 5.2 /CMM (1.8-8.9); NEUTROPHILS % (AUTO) 75.3 % (43.0-81.0); PLATELET COUNT (AUTO) 237 /CMM (150-450); RED BLOOD CELL COUNT(AUTO) 3.14 MIL/uL (4.0-5.2)
[2016-11-13 07:45] LABS: ALBUMIN 3.1 g/dL (3.4-5.0); BILIRUBIN,TOTAL 0.7 mg/dL (0.2-1.0); CALCIUM, SERUM 8.7 mg/dL (8.5-10.1); CREATININE 1.8 mg/dL (0.6-1.3); MAGNESIUM 2.4 mg/dL (1.8-2.4); PHOSPHORUS 3.7 mg/dL (2.5-4.9); POTASSIUM 3.3 mmol/L (3.5-5.1); TOTAL PROTEIN, SERUM 6.6 g/dL (6.4-8.2)
--- NOTE | 2016-11-13 07:50 | NUR ---
MS RN RECEIVED ON BED, AWAKE,ALERT,ORIENTED X4,NOT IN ANY FORM OF DISTRESS, RESPIRATIONS EVEN AND UNLABORED,NO SOB NOTED. LUNGS ARE CLEAR,ABDOMEN SOFT,POSITIVE BOWEL SOUNDS, DENIES PAIN AT THIS TIME, WILL MONITOR PATIENT'S CONDITION.
[2016-11-13 08:00] VITALS: BP 155/69
--- NOTE | 2016-11-13 08:20 | NUR ---
MS PAPITO CLEMENTS SERVED,DUE MEDS GIVEN,TOLERATED WELL.
[2016-11-13] MEDS: ASPIRIN EC 81 MG TABLET.DR PO SCH (08:42)
[2016-11-13] MEDS: FERROUS SULFATE (325 MG) 325 MG/TAB TABLET PO SCH ×2 (08:42→20:43)
[2016-11-13] MEDS: PANTOPRAZOLE 40 MG TABLET.DR PO SCH (08:42)
[2016-11-13] MEDS: AMLODIPINE BESYLATE 10 MG TABLET PO SCH (08:43)
[2016-11-13] MEDS: hydrALAZINE HCL 50 MG TABLET PO SCH ×3 (08:43→16:47)
[2016-11-13] MEDS: CARVEDILOL 12.5 MG TABLET PO SCH ×2 (08:43→20:43)
[2016-11-13] MEDS: ISOSORBIDE DINITRATE (20MG) 20 MG TABLET PO SCH ×3 (08:44→16:47)
[2016-11-13] MEDS ORDERED: BUMETANIDE INJ 8 MG in IV NS 0.9% 48 ML IV ONE (09:40)
[2016-11-13] MEDS ORDERED: IV SET PRIMARY PUMP SET 1 EA INFUS.SET MC ONE (10:10)
[2016-11-13] MEDS: POTASSIUM CHLORIDE 20 MEQ TAB.PRT.SR PO SCH ×3 (10:50→16:48)
--- NOTE | 2016-11-13 14:00 | NUR ---
MS VOLTAGE REGULATOR ASSEMBLER CALLED ,PT. WILL BE TRANSFERRED TO REHAB IN AM, FAMILY NOTIFIED.
--- NOTE | 2016-11-13 15:00 | NUR ---
MS RN WAS SEEN BY GI MD, FOR EGD,COLONOSCOPY IN AM.
[2016-11-13 16:00] VITALS: BP 149/76
[2016-11-13] MEDS ORDERED: PEG 3350/NA SULF,BICARB,CL/KCL 4,000 ML BOTTLE PO ONE (17:00)
--- NOTE | 2016-11-13 17:10 | NUR ---
MS RN LEFT MESSAGE TO DR. GÓMEZ,THAT PATIENT IS REFUSING EGD,COLONOSCOPY IN AM, TEL#[phone].
--- NOTE | 2016-11-13 17:32 | NUR ---
MS RN ON BED, O DISTRESS NOTED,ALL NEEDS ATTENDED.
[2016-11-13 20:00] VITALS: BP 149/98
[2016-11-13] MEDS: ATORVASTATIN 10 MG TABLET PO SCH (20:43)
[2016-11-13] MEDS: ENOXAPARIN SODIUM 30 MG/0.3 ML DISP.SYRIN SQ SCH (20:44)
[2016-11-13] MEDS ORDERED: CLONIDINE HCL 0.2MG/24H PTWK 1 EA PATCH TD SCH (21:00)
[2016-11-13] MEDS: ZOLPIDEM TARTRATE 5 MG TABLET PO PRN (23:38)
[2016-11-14 06:39] LABS: BASOPHILS % (AUTO) 0.1 % (0.0-2.0); EOSINOPHILS # (AUTO) 0.4 /CMM (0.0-0.7); EOSINOPHILS % (AUTO) 6.2 % (0.0-6.0); HEMATOCRIT 24 % (33-45); HEMOGLOBIN 7.7 g/dL (11.5-14.8); LYMPHOCYTES # (AUTO) 0.9 /CMM (0.8-4.8); MEAN CORPUSCULAR HEMOGLOBIN 26 PG (26.0-33.0); MEAN CORPUSCULAR HGB CONC 32 g/dl (31.0-36.0); MEAN CORPUSCULAR VOLUME 81 fL (82-100); MONOCYTES # (AUTO) 0.5 /CMM (0.1-1.30); MONOCYTES % (AUTO) 7.2 % (2.0-12.0); NEUTROPHILS # (AUTO) 4.6 /CMM (1.8-8.9); NEUTROPHILS % (AUTO) 72.5 % (43.0-81.0); PLATELET COUNT (AUTO) 221 /CMM (150-450); RDW COEFFICIENT OF VARIATION 17.4 (11.5-15.0); RED BLOOD CELL COUNT(AUTO) 2.95 MIL/uL (4.0-5.2); WHITE BLOOD COUNT (AUTO) 6.3 K/uL (4.3-11.0)
[2016-11-14 06:57] LABS: BILIRUBIN,TOTAL 0.4 mg/dL (0.2-1.0); CALCIUM, SERUM 8.5 mg/dL (8.5-10.1); CREATININE 1.8 mg/dL (0.6-1.3); MAGNESIUM 2.2 mg/dL (1.8-2.4); PHOSPHORUS 3.5 mg/dL (2.5-4.9); POTASSIUM 3.7 mmol/L (3.5-5.1); TOTAL PROTEIN, SERUM 6.4 g/dL (6.4-8.2)
--- NOTE | 2016-11-14 07:45 | NUR ---
MS RN OPENING NOTE PATIENT IS ALERT AND ORIENTED x4. NO PAIN AT THIS TIME. NO SOB OR DISTRESS NOTED. SAFETY MEASURES IMPLEMENTED. CALL LIGHT WITHIN REACH. BED LOCKED IN LOWEST POSITION WITH SIDERAILS UP x2. IV INTACT AND PATENT NO REDNESS OR SWELLING NOTED. ALL NURSING CARE NEEDS WILL BE ATTENDED TO. WILL CONTINUE TO MONITOR
[2016-11-14 08:00] VITALS: BP 150/61
[2016-11-14] MEDS: PANTOPRAZOLE 40 MG TABLET.DR PO SCH (08:52)
[2016-11-14] MEDS: ASPIRIN EC 81 MG TABLET.DR PO SCH (08:52)
[2016-11-14] MEDS: FERROUS SULFATE (325 MG) 325 MG/TAB TABLET PO SCH (08:53)
[2016-11-14] MEDS: AMLODIPINE BESYLATE 10 MG TABLET PO SCH (08:54)
[2016-11-14] MEDS: ISOSORBIDE DINITRATE (20MG) 20 MG TABLET PO SCH ×2 (08:54→13:51)
[2016-11-14] MEDS: CARVEDILOL 12.5 MG TABLET PO SCH (08:54)
[2016-11-14] MEDS: hydrALAZINE HCL 50 MG TABLET PO SCH ×2 (08:56→13:51)
[2016-11-14] MEDS ORDERED: POTASSIUM CHLORIDE 20 MEQ TAB.PRT.SR PO SCH (09:30)
[2016-11-14] MEDS ORDERED: FUROSEMIDE 80 MG TABLET PO SCH (09:30)
--- NOTE | 2016-11-14 09:40 | NUR ---
MS RN NOTE PATIENT IS BEING DISCHARGED TO [facility]. GAVE REPORT TO PAPITO WALDROP.
[2016-11-14 13:51] VITALS: BP 146/71
--- NOTE | 2016-11-14 14:15 | NUR ---
MS ONION TIER NOTE PATIENT IS ALERT AND ORIENTED x4. NO PAIN AT THIS TIME. NO SOB OR DISTRESS NOTED. DISCHARGE INSTRUCTIONS GIVEN TO PATIENT. PATIENT ABLE TO RETURN VERBAL DISCHARGE INSTRUCTIONS. PATIENT BELONGINGS WITH PATIENT AT BEDSIDE ALL ACCOUNTED FOR. PATIENT IS BEING TRANSFERRED TO [facility] VIA AMBULANCE BY TWO BAGGAGE INSPECTOR. REPORT [facility] TO PAPIT[facility]ALDROP AT [facility]. SKIN INTACT.
== END 2016-11-14 14:10 | DRG 291 ==
LOC: ER 18:31 → TELE 20:11 → MED 11-11 08:58
PROVIDERS: ADMIT Internal Medicine; ATTEND Internal Medicine
PROC: 30233N1 Transfusion of Nonautologous Red Blood Cells into Peripheral Vein, Percutaneous Approach (ICD-10-PCS; principal; 2016-11-12)
DX: I13.0 Hypertensive heart and chronic kidney disease with heart failure and stage 1 through stage 4 chronic kidney disease, or unspecified chronic kidney disease (principal); I50.33 Acute on chronic diastolic (congestive) heart failure; E44.0 Moderate protein-calorie malnutrition; N17.9 Acute kidney failure, unspecified; J90 Pleural effusion, not elsewhere classified; E87.0 Hyperosmolality and hypernatremia; K21.9 Gastro-esophageal reflux disease without esophagitis; D63.8 Anemia in other chronic diseases classified elsewhere; E78.5 Hyperlipidemia, unspecified; E11.22 Type 2 diabetes mellitus with diabetic chronic kidney disease; E66.01 Morbid (severe) obesity due to excess calories; N18.2 Chronic kidney disease, stage 2 (mild); E87.6 Hypokalemia; Z87.442 Personal history of urinary calculi; G47.33 Obstructive sleep apnea (adult) (pediatric); E88.09 Other disorders of plasma-protein metabolism, not elsewhere classified; Z68.34 Body mass index [BMI] 34.0-34.9, adult; T50.2X5A Adverse effect of carbonic-anhydrase inhibitors, benzothiadiazides and other diuretics, initial encounter; Y92.009 Unspecified place in unspecified non-institutional (private) residence as the place of occurrence of the external cause; Z82.49 Family history of ischemic heart disease and other diseases of the circulatory system; Z90.5 Acquired absence of kidney
CPT/HCPCS: 36415; 71010-TC; 80048-TC; 80053-TC; 80061-TC; 80076-TC; 81000-TC; 82728-TC; 83540-TC; 83735-TC; 83880; 84100-TC; 84484-TC; 85025-TC; 85730-TC; 86850-TC; 86921-TC; 87081-TC; 87086-TC; 87186-TC; 93307-TC; 94799-TC; 97001-TC; 97110-TC; 97116-TC; 97530-TC; A4216; A4606; J1650; J1940; J2270; J3490; J7050; P9016-BL; Z7610

== ENCOUNTER 2016-12-12 20:17 | Inpatient (IN) | payer MEDICARE, OTHER ==
[~2016-12-12] VITALS: Ht 165.1 cm; Wt 88.0 kg
--- NOTE | 2016-12-12 20:30 | NUR ---
PT CO SHARP STABBING L SIDED CP THAT RADIATES TO L SHOULDER THAT STARTED AT 0600. STATES THAT PAIN WORSEN WHEN SHE BREATHES IN DEEP. DENIES SOB AT THIS TIME. PUT PT ON MONITOR. ON MONITOR W/ TACHYCARDIA HR 100S. ON O2 2L/MIN AT THIS TIME. DR CORNEJO AT BEDSIDE FOR EVALUATION
[2016-12-12] MEDS ORDERED: IV SET PRIMARY PUMP SET 1 EA INFUS.SET MC ONE (20:33)
[2016-12-12] MEDS ORDERED: NTG 50 MG/D5W250 ML BOTTL 250 ML IV ONE ×2 (20:33→21:00)
--- NOTE | 2016-12-12 20:49 | NUR ---
DR NORMAN AT BEDSIDE FOR EVALUATION.
[2016-12-12 21:05] LABS: BASOPHILS % (AUTO) 0.3 % (0.0-2.0); EOSINOPHILS % (AUTO) 12.2 % (0.0-6.0); HEMATOCRIT 24 % (33-45); HEMOGLOBIN 7.6 g/dL (11.5-14.8); LYMPHOCYTES # (AUTO) 0.6 /CMM (0.8-4.8); LYMPHOCYTES % (AUTO) 7.2 % (20.0-44.0); MEAN CORPUSCULAR HEMOGLOBIN 25 PG (26.0-33.0); MEAN CORPUSCULAR HGB CONC 31 g/dl (31.0-36.0); MEAN CORPUSCULAR VOLUME 79 fL (82-100); MONOCYTES # (AUTO) 0.4 /CMM (0.1-1.30); MONOCYTES % (AUTO) 5.3 % (2.0-12.0); NEUTROPHILS # (AUTO) 6.1 /CMM (1.8-8.9); PLATELET COUNT (AUTO) 272 /CMM (150-450); RDW COEFFICIENT OF VARIATION 17.1 (11.5-15.0); RED BLOOD CELL COUNT(AUTO) 3.06 MIL/uL (4.0-5.2); WHITE BLOOD COUNT (AUTO) 8.1 K/uL (4.3-11.0)
[2016-12-12 21:13] LABS: CALCIUM, SERUM 8.1 mg/dL (8.5-10.1); CARBON DIOXIDE 25 mmol/L (21-32); CHLORIDE 113 mmol/L (98-107); CREATININE 1.9 mg/dL (0.6-1.3); GLUCOSE 180 mg/dL (74-106); SODIUM SERUM 145 mmol/L (136-145); UREA NITROGEN, BLOOD 30 mg/dL (7-18)
[2016-12-12 21:21] LABS: TROPONIN I < 0.017 ng/mL (0.00-0.056)
[2016-12-12 21:26] LABS: B-TYPE NATRIURETIC PEPTIDE 11133 PG/ML (0-125)
[2016-12-12] MEDS ORDERED: MAG HYDROX/AL HYDROX/SIMETH 30 ML UDC PO PRN (21:30)
[2016-12-12] MEDS ORDERED: MORPHINE SULFATE INJ 2 MG/ML DISP.SYRIN IV PRN (21:30)
[2016-12-12] MEDS ORDERED: Z GUARD REMEDY 2 OZ OINT TP PRN (21:30)
[2016-12-12] MEDS ORDERED: ENOXAPARIN SODIUM 40 MG/0.4 ML DISP.SYRIN SQ SCH (21:30)
[2016-12-12] MEDS ORDERED: hydrALAZINE HCL 10 MG TABLET PO ONE (21:30)
[2016-12-12] MEDS ORDERED: ISOSORBIDE DINITRATE (10MG) 10 MG TABLET PO SCH (21:30)
[2016-12-12] MEDS ORDERED: HYDROCODONE/APAP 5/325MG 1 EACH TABLET PO PRN (21:30)
[2016-12-12] MEDS ORDERED: MAGNESIUM HYDROXIDE 30 ML UDC PO PRN (21:30)
[2016-12-12] MEDS ORDERED: ACETAMINOPHEN 325 MG TABLET PO PRN (21:30)
--- NOTE | 2016-12-12 21:34 | NUR ---
DR GUERIN AT BEDSIDE FOR MIDLINE PLACEMENT
[2016-12-12 21:36] LABS: D-DIMER 1.41 mg/L(FEU (0.17-0.50); INR 0.97 (0.87-1.13); PROTHROMBIN TIME 10.4 SECS (9.5-12.7)
--- NOTE | 2016-12-12 21:40 | NUR ---
PT STARTED CO SOB, NOTED O2 SAT DROPPED TO 92 ON 2L/MIN. DR GUERIN STILL WORKING ON MIDLINE. WILL START NITRO SOON LINE IS INSERTED
--- NOTE | 2016-12-12 21:42 | NUR ---
PUT PT ON SIMPLE MASK AT 10L/MIN. NOW ATING AT 93-95%
--- NOTE | 2016-12-12 21:42 | NUR ---
DILIA PAGED, DR.SAM Phan MEDICAL STAFF MANAGER
--- NOTE | 2016-12-12 21:44 | NUR ---
CALLED NURSING SUP. FOR ICU BED
--- NOTE | 2016-12-12 21:45 | NUR ---
STARTED PT ON NITRO GTT AT 10MCG/MIN. WILL TITRATE PER PROTOCOL.
[2016-12-12] MEDS ORDERED: ATORVASTATIN 10 MG TABLET PO SCH (22:00)
[2016-12-12] MEDS ORDERED: PANTOPRAZOLE 40 MG VIAL IV ONE (22:00)
[2016-12-12] MEDS ORDERED: ENALAPRILAT DIHYD. (2.5MG/ML) 1.25 MG/ML VIAL IV ONE ×2 (22:07→22:30)
--- NOTE | 2016-12-12 22:07 | NUR ---
CALLED RT FOR BREATHING TREATMENT
--- NOTE | 2016-12-12 22:20 | NUR ---
ICU/RN- PT PUT IN BIPAP 12/5 R 10 FIO2 50%.
[2016-12-12 22:25] VITALS: BP 232/158
--- NOTE | 2016-12-12 22:56 | NUR ---
REPORT GIVEN TO ED FOR ICU RM 261
[2016-12-12] MEDS ORDERED: D5W IV PRN (23:00)
[2016-12-12] MEDS ORDERED: NITROPRUSSIDE SODIUM IV PRN (23:00)
--- NOTE | 2016-12-12 23:18 | NUR ---
TRANSFERRED PT IN ICU RM 261 IN STABLE CONDITION IN ACLS PROTOCOL
[2016-12-12] MEDS ORDERED: ENOXAPARIN SODIUM 40 MG/0.4 ML DISP.SYRIN SQ ONE (23:31)
[2016-12-12] MEDS ORDERED: ATORVASTATIN 10 MG TABLET ONE (23:31)
[2016-12-12] MEDS ORDERED: PANTOPRAZOLE 40 MG VIAL ONE (23:31)
[2016-12-12] MEDS ORDERED: hydrALAZINE HCL 50 MG TABLET ONE (23:31)
[2016-12-12 23:32] VITALS: BP 189/89
[2016-12-12 23:36] VITALS: BP 189/89
[2016-12-12] MEDS: FUROSEMIDE 40 MG/4 ML VIAL IV SCH (23:40)
--- NOTE | 2016-12-12 23:40 | NUR ---
ELEMENTARY SCHOOL BAND DIRECTOR NOTES RECEIVED PT ON CECELIA FROM ER, TRANSFERRED TO ICU BED. DX OF ACUTE ON CHRONIC DIASTOLIC HEART FAILURE AND ACCELERATED HYPERTENSION. A/O X4. TELE READS ST AT 121 BPM. PT PLACED ON BIPAP AT ORDERED SETTINGS, GUILLAUME WELL. MARGAUX 18G MIDLINE RUNNING NTG DRIP AT 170 MCG/MIN, SBP >190. NO SKIN ISSUES PRESENT. PT ABLE TO AMBULATE TO BSC WITH ASSISTANCE. HOB ELEVATED, SIDE RAILS X2. CALL LIGHT WITHIN EASY REACH. PT EXPRESSES MILD PAIN AT THIS TIME BUT REFUSES PAIN MEDS. WILL CARRY OUT ADMISSION ORDERS.
[2016-12-12] MEDS: hydrALAZINE HCL 50 MG TABLET PO SCH (23:56)
[2016-12-13] VITALS (53 sets, daily range): BP systolic 103–238; BP diastolic 34–162
[2016-12-13] MEDS ORDERED: LORAZEPAM 1 MG TABLET PO PRN
[2016-12-13 01:05] LABS: ABG BASE EXCESS -5.3 mmol/L; ABG OXYGEN SATURATION 98.5 % (92.0-98.5); ABG PCO2 40.4 mmHg (35.0-45.0); ABG PO2 196.2 mmHg (75.0-100.0); ABG TOTAL HEMOGLOBIN 8.2 G/dL (12.0-16.0); AaDO2 114.9 mmHg; COHb 1.3 % (0.5-1.5); MetHb 1.3 % (0.0-1.5); O2Hb 95.9 % (94.0-97.0); PEEP,BG 5 cm H2O; SITE, ABG Right Radial
[2016-12-13] MEDS ORDERED: ZOLPIDEM TARTRATE 5 MG TABLET ONE (02:20)
[2016-12-13] MEDS: ZOLPIDEM TARTRATE 5 MG TABLET PO PRN ×2 (02:24→22:25)
[2016-12-13] MEDS: NTG 50 MG/D5W250 ML BOTTL 250 ML IV PRN ×2 (02:45→07:02)
[2016-12-13 03:26] LABS: EOSINOPHILS # (AUTO) 0.1 /CMM (0.0-0.7); HEMATOCRIT 22 % (33-45); LYMPHOCYTES # (AUTO) 0.4 /CMM (0.8-4.8); LYMPHOCYTES % (AUTO) 3.2 % (20.0-44.0); MEAN CORPUSCULAR HEMOGLOBIN 25 PG (26.0-33.0); MEAN CORPUSCULAR HGB CONC 32 g/dl (31.0-36.0); MEAN CORPUSCULAR VOLUME 80 fL (82-100); MONOCYTES # (AUTO) 0.4 /CMM (0.1-1.30); MONOCYTES % (AUTO) 3.5 % (2.0-12.0); NEUTROPHILS # (AUTO) 11.5 /CMM (1.8-8.9); NEUTROPHILS % (AUTO) 92.3 % (43.0-81.0); PLATELET COUNT (AUTO) 241 /CMM (150-450); RDW COEFFICIENT OF VARIATION 18.1 (11.5-15.0); RED BLOOD CELL COUNT(AUTO) 2.74 MIL/uL (4.0-5.2); WHITE BLOOD COUNT (AUTO) 12.4 K/uL (4.3-11.0)
[2016-12-13 03:40] LABS: HEMOGLOBIN 6.9 g/dL (11.5-14.8)
[2016-12-13 04:02] LABS: CREATININE 1.7 mg/dL (0.6-1.3); MAGNESIUM 1.8 mg/dL (1.8-2.4); PHOSPHORUS 3.7 mg/dL (2.5-4.9); POTASSIUM 4.3 mmol/L (3.5-5.1)
[2016-12-13 04:05] LABS: THYROID STIMULATING HORMONE 1.231 uIU/mL (0.358-3.74)
[2016-12-13 04:23] LABS: ANISOCYTOSIS 1+; BAND % (MANUAL) 2 % (0.0-5.0); EOSINOPHILS % (MANUAL) 3 % (0-4); HYPOCHROMASIA 2+; LYMPHOCYTES % (MANUAL) 4 % (16-48); MONOCYTES % (MANUAL) 1 % (0-11.0); NEUTROPHILS % (MANUAL) 90 (42-76); PLATELET ESTIMATE ADEQUATE
[2016-12-13] MEDS ORDERED: FUROSEMIDE 40 MG/4 ML VIAL ONE (05:14)
[2016-12-13] MEDS: FUROSEMIDE 40 MG/4 ML VIAL IV SCH (05:21)
--- NOTE | 2016-12-13 05:30 | NUR ---
PREVENTION COORDINATOR NOTES CRITICAL LABS FOR TROP 0.846 AND HGB 6.9, DR NORMAN CONTACTED, NEW ORDERS RECEIVED FOR 100MG OF LOVENOX AND 1 PRBC.
[2016-12-13] MEDS ORDERED: ENOXAPARIN SODIUM 100 MG/ML DISP.SYRIN SQ ONE ×2 (05:46→06:00)
[2016-12-13] MEDS ORDERED: NTG 50 MG/D5W250 ML BOTTL 250 ML IV ONE (06:57)
--- NOTE | 2016-12-13 07:45 | NUR ---
ICU/RN: PT IN BED, ON BIPAP, CO CHEST DISCOMFORT AND LOWER BACK PAIN. NITRO INFUSING WELL THROUGH MARGAUX MIDLINE. PT A&OX4, FOLLOWS COMMANDS, ABLE TO TRANSFER TO BSC WITH MINIMAL ASSIST. SOB NOTED ON EXERTION. WILL CONT TO MONITOR PT.
[2016-12-13] MEDS ORDERED: BUMETANIDE INJ 8 MG in IV NS 0.9% 48 ML IV ONE (08:30)
[2016-12-13] MEDS: ISOSORBIDE DINITRATE (20MG) 20 MG TABLET PO SCH ×2 (08:45→17:10)
[2016-12-13] MEDS: hydrALAZINE HCL 50 MG TABLET PO SCH ×3 (08:46→17:09)
[2016-12-13] MEDS: PANTOPRAZOLE 40 MG TABLET.DR PO SCH (08:46)
[2016-12-13] MEDS: CARVEDILOL 6.25 MG TABLET PO SCH ×2 (08:46→17:10)
[2016-12-13] MEDS ORDERED: NIFEdipine XL (30MG) 30 MG TAB PO SCH (09:00)
[2016-12-13] MEDS ORDERED: NIFEdipine XL 60 MG TAB PO SCH (09:00)
[2016-12-13] MEDS ORDERED: ASPIRIN EC 81 MG TABLET.DR PO SCH (09:00)
[2016-12-13] MEDS ORDERED: IV SET PRIMARY PUMP SET 1 EA INFUS.SET MC ONE (09:25)
[2016-12-13] MEDS: ONDANSETRON HCL/PF 4 MG/2 ML VIAL IVP PRN ×2 (09:32→17:17)
--- NOTE | 2016-12-13 10:04 | NUR ---
ICU/RN: PT PLACED BACK ON BIPAP AFTER BEING ON O2 2L/MIN VIA NC. SOB, ELEVATED HR AND BP NOTED.
--- NOTE | 2016-12-13 10:04 | NUR ---
RT PT PLACED BACK ON BIPAP DUE TO INCREASED WORK OF BREATHING. PT PLACED BACK ON PREVIOUS BIPAP VENT SETTINGS. WILL CONTINUE TO MONITOR FOR FURTHER CHANGES. Addendum: 12/13/16 at 1033 by JEAN PIERRE STOCKTON RT Amended: Links added.
[2016-12-13] MEDS ORDERED: CLONIDINE HCL 0.2MG/24H PTWK 1 EA PATCH TD SCH (10:08)
[2016-12-13] MEDS ORDERED: EPOETIN ALFA (20,000 UNIT) 20,000 UNIT/ML VIAL SQ ONE (11:00)
[2016-12-13 12:27] LABS: HEMOGLOBIN 8.2 g/dL (11.5-14.8)
[2016-12-13 14:33] LABS: ABG BASE EXCESS -2.3 mmol/L; ABG OXYGEN SATURATION 97.9 % (92.0-98.5); ABG PCO2 39.3 mmHg (35.0-45.0); ABG PH 7.378 (7.350-7.450); ABG PO2 137.6 mmHg (75.0-100.0); ABG TOTAL HEMOGLOBIN 8.7 G/dL (12.0-16.0); AaDO2 102.4 mmHg; COHb 0.8 % (0.5-1.5); MetHb 1.4 % (0.0-1.5); O2Hb 95.7 % (94.0-97.0); SITE, ABG Left Radial
--- NOTE | 2016-12-13 17:30 | NUR ---
ICU/RN: PT OFF BIPAP. ADMINISTERED ZOFRAN FOR PT C/O N/V WHEN ATTEMPTING TO EAT DINNER. EFFECTIVE, HOWEVER PT STATES "I DONT FEEL LIKE EATING."
--- NOTE | 2016-12-13 19:15 | NUR ---
ICU/RN: PT IN BED, REPOSITIONED FOR COMFORT, COMFORTABLE ON O2 2L/MIN VIA NC. MARGAUX ML AND IV HL ON HENRY PATENT, INTACT. ALL NEEDS MET. ALARM SOUNDS AUDIBLE. CALL LIGHT WITHIN REACH. CARE ENDORSED TO PM RN FOR ARIAN.
--- NOTE | 2016-12-13 19:47 | NUR ---
PUBLIC WORKS SUPERVISOR NOTES RECEIVED PT IN BED. A/O X4. TELE READS SR AT 80 BPM. PT ON 2 LPM, O2 VIA NC. MARGAUX 18G MIDLINE AND LEFT SHOULDER 20G IV, SL. NO SKIN ISSUES PRESENT. PT ABLE TO AMBULATE TO BSC WITH ASSISTANCE. HOB ELEVATED, SIDE RAILS X2. CALL LIGHT WITHIN EASY REACH. PT DENIES PAIN AT THIS TIME.
[2016-12-14] VITALS (19 sets, daily range): BP systolic 118–168; BP diastolic 62–101
[2016-12-14 05:09] LABS: BASOPHILS % (AUTO) 0.1 % (0.0-2.0); EOSINOPHILS # (AUTO) 0.6 /CMM (0.0-0.7); EOSINOPHILS % (AUTO) 6.5 % (0.0-6.0); HEMATOCRIT 27 % (33-45); HEMOGLOBIN 8.5 g/dL (11.5-14.8); LYMPHOCYTES # (AUTO) 1.1 /CMM (0.8-4.8); MEAN CORPUSCULAR HEMOGLOBIN 26 PG (26.0-33.0); MEAN CORPUSCULAR HGB CONC 32 g/dl (31.0-36.0); MEAN CORPUSCULAR VOLUME 81 fL (82-100); MONOCYTES # (AUTO) 0.5 /CMM (0.1-1.30); MONOCYTES % (AUTO) 5.8 % (2.0-12.0); NEUTROPHILS # (AUTO) 6.9 /CMM (1.8-8.9); NEUTROPHILS % (AUTO) 75.6 % (43.0-81.0); PLATELET COUNT (AUTO) 283 /CMM (150-450); RDW COEFFICIENT OF VARIATION 18.8 (11.5-15.0); RED BLOOD CELL COUNT(AUTO) 3.26 MIL/uL (4.0-5.2); WHITE BLOOD COUNT (AUTO) 9.1 K/uL (4.3-11.0)
[2016-12-14 05:15] LABS: BILIRUBIN,TOTAL 0.6 mg/dL (0.2-1.0); CALCIUM, SERUM 8.3 mg/dL (8.5-10.1); CREATININE 1.9 mg/dL (0.6-1.3); MAGNESIUM 1.7 mg/dL (1.8-2.4); PHOSPHORUS 3.4 mg/dL (2.5-4.9); TOTAL PROTEIN, SERUM 6.7 g/dL (6.4-8.2)
[2016-12-14 05:24] LABS: TROPONIN I 0.697 ng/mL (0.00-0.056)
--- NOTE | 2016-12-14 07:15 | NUR ---
RN INITIAL NOTES RECEIVED PT AWAKE, A/OX4. NO RESPIRATORY DISTRESS NOTED. NO SOB NOTED. DENIES CHEST PAIN. DENIES ANY PAIN. ON 02 AT2LPM VIA NC. MARGAUX MIDLINE AND HENRY G#[address] FLUSHED WITH NS. PT AMBULATORY WITH ASSIST, ASSISTED TO BEDSIDE COMMODE. PT COMFORTABLE. CALL LIGHT WITHIN REACH. WILL CONTINUE TO MONITOR.
--- NOTE | 2016-12-14 07:35 | NUR ---
RN NOTES SEEN AND EXAMINED BY DR. AUGUST. AWARE OF CURRENT LAB VALUES. TROPONIN 0.697. PT REMAINS A/OX4. NO RESPIRATORY DISTRESS NOTED. NO SOB NOTED. ON 02 AT 2LPM VIA NC. DENIES CHEST PAIN. DENIES ANY PAIN. ADJUSTED PROCARDIA DOSAGE, ORDERED BUMEX, LABS AND CXR IN AM.
[2016-12-14] MEDS: PANTOPRAZOLE 40 MG TABLET.DR PO SCH (08:13)
[2016-12-14] MEDS: ISOSORBIDE DINITRATE (20MG) 20 MG TABLET PO SCH ×2 (08:13→16:23)
[2016-12-14] MEDS: CARVEDILOL 6.25 MG TABLET PO SCH ×2 (08:14→16:23)
[2016-12-14] MEDS ORDERED: BUMETANIDE INJ 8 MG in IV NS 0.9% 48 ML IV ONE (08:30)
[2016-12-14] MEDS: NIFEdipine XL (30MG) 30 MG TAB PO SCH (08:37)
[2016-12-14] MEDS: ENOXAPARIN SODIUM 40 MG/0.4 ML DISP.SYRIN SQ SCH (08:38)
[2016-12-14] MEDS: hydrALAZINE HCL 50 MG TABLET PO SCH ×3 (09:34→16:23)
[2016-12-14] MEDS ORDERED: Magnesium 1GM/D5W 100ML PREMIX 100 ML IV SCH (11:04)
[2016-12-14] MEDS ORDERED: IV SET PRIMARY PUMP SET 1 EA INFUS.SET MC ONE ×2 (11:11→13:50)
[2016-12-14] MEDS ORDERED: HYDROCODONE/APAP 5/325MG 1 EACH TABLET PO PRN (12:30)
--- NOTE | 2016-12-14 12:35 | NUR ---
RN NOTES SEEN AND EXAMINED BY WILDER CARTAGENA NP. AWARE OF CURRENT LAB VALUES AND CXR RESULT. MAGNESIUM REPLACED. PYTHON ENGINEER AWARE PT HAS C/O CHEST SORENESS, PYTHON ENGINEER ORDERED PAIN MEDICATION. OK TO DOWNGRADE. PT AWARE.
[2016-12-14] MEDS: BOOST PLUS FOOD-CHOCLATE 237 ML BOX PO SCH ×2 (13:54→16:41)
[2016-12-14] MEDS: SOD FERRIC GLUC 125 MG in IV NS 0.9% 100 ML IV SCH (14:01)
--- NOTE | 2016-12-14 17:00 | NUR ---
RN NOTES PT TRANSFERRED TO ROOM 320-1. PT A/OX4. NO RESPIRATORY DISTRESS NOTED. NO SOB NOTED. DENIES ANY PAIN. DENIES CHEST PAIN. REPORT GIVEN TO AFTAB COBOS AT BEDSIDE. TOOK OVER PT'S CARE. FAMILY AT BEDSIDE.
[2016-12-14] MEDS: MORPHINE SULFATE INJ 2 MG/ML DISP.SYRIN IV PRN (17:53)
--- NOTE | 2016-12-14 18:57 | NUR ---
RN Notes Resting well, no complain at this time. Patient is awake,alert and oriented. not in any form of distress. Denies headache or dizziness.No chest pain or discomfort. With IV access on Right upper arm Midline cath and Left upper arm gg 20 patent and intact. On tele monitor with sinus rhythm. Needs anticipated. No untoward symptom noted within the shift. Will endorse to shift leader nurse for the continuity of care.
--- NOTE | 2016-12-14 19:50 | NUR ---
telephone collector initial notes: received report from sidney wilcox. pt in bed, awake, a/o x4, on 2l via nc, respiration even and unlabored. denies any chest pain or discomfort at this time. respiration even and unlabored. pt transferred from icu. pt has corrine iv g20 and suzie midline, both patent and flushing well, no s/s/ of redness or infiltration noted. pt on sinus rhythm with inverted t wave hr 87., ble offloaded. safety precautions for fall initiated call light in reach, will continue to monitor
--- NOTE | 2016-12-14 21:00 | NUR ---
outbound telemarketer notes: assisted pt to bed side commode, emptied 100ml of urine
[2016-12-14] MEDS: ZOLPIDEM TARTRATE 5 MG TABLET PO PRN (23:57)
--- NOTE | 2016-12-14 23:59 | NUR ---
telephone exchange operator notes: pt requested for her sleeping pill, prn ambien 56nmg tab po administered to the pt at this time, educate pt regarding medication side effects will continue to monitor and reassess
[2016-12-15] VITALS: BP 139/68
[2016-12-15 04:00] VITALS: BP 151/79
--- NOTE | 2016-12-15 06:37 | NUR ---
telephone betting clerk closing notes: pt in bed, awake, remains on 2l via nc, respiration even and unlabored, no apparent distress noted, denies any chest pain or discomfort. remains on sinus rhythm inverted t wave hr 82. corrine iv and suzie midline remains patent and flushing well, on hl. no s/s of infiltration or redness on site noted. ble kept offloaded. vs remains stable, needs attended. will endorse to day rn for edgar.
[2016-12-15 07:05] VITALS: BP 158/76
--- NOTE | 2016-12-15 07:30 | NUR ---
LETTER OF CREDIT CLERK OPENING NOTE PATIENT IS ALERT AND ORIENTED x4. NO PAIN AT THIS TIME. NO SOB OR DISTRESS NOTED. CALL LIGHT WITHIN REACH. SAFETY MEASURES IMPLEMENTED. ON TELE MONITOR- NSR 87. OUT OF BED WITH ASSISTANCE. CARDIAC DIET. IV INTACT AND PATENT NO REDNESS OR SWELLING NOTED. ABLE TO COMMUNICATE NEEDS. WILL CONTINUE TO MONITOR
[2016-12-15 07:41] LABS: BASOPHILS # (AUTO) 0.1 /CMM (0.0-0.2); BASOPHILS % (AUTO) 0.7 % (0.0-2.0); EOSINOPHILS # (AUTO) 0.5 /CMM (0.0-0.7); EOSINOPHILS % (AUTO) 6.5 % (0.0-6.0); HEMATOCRIT 25 % (33-45); HEMOGLOBIN 7.8 g/dL (11.5-14.8); LYMPHOCYTES # (AUTO) 1.1 /CMM (0.8-4.8); LYMPHOCYTES % (AUTO) 12.5 % (20.0-44.0); MEAN CORPUSCULAR HEMOGLOBIN 26 PG (26.0-33.0); MEAN CORPUSCULAR HGB CONC 32 g/dl (31.0-36.0); MEAN CORPUSCULAR VOLUME 82 fL (82-100); MONOCYTES # (AUTO) 0.8 /CMM (0.1-1.30); MONOCYTES % (AUTO) 9.7 % (2.0-12.0); NEUTROPHILS % (AUTO) 70.6 % (43.0-81.0); PLATELET COUNT (AUTO) 272 /CMM (150-450); RDW COEFFICIENT OF VARIATION 18.9 (11.5-15.0); RED BLOOD CELL COUNT(AUTO) 3.02 MIL/uL (4.0-5.2); WHITE BLOOD COUNT (AUTO) 8.4 K/uL (4.3-11.0)
[2016-12-15] MEDS: BOOST PLUS FOOD-CHOCLATE 237 ML BOX PO SCH ×2 (08:00→17:00)
[2016-12-15 08:01] LABS: TROPONIN I 0.382 ng/mL (0.00-0.056)
[2016-12-15 08:03] LABS: ALBUMIN 2.7 g/dL (3.4-5.0); BILIRUBIN,TOTAL 0.4 mg/dL (0.2-1.0); CALCIUM, SERUM 7.9 mg/dL (8.5-10.1); CREATININE 2.4 mg/dL (0.6-1.3); MAGNESIUM 1.9 mg/dL (1.8-2.4); PHOSPHORUS 3.8 mg/dL (2.5-4.9); POTASSIUM 3.8 mmol/L (3.5-5.1); TOTAL PROTEIN, SERUM 6.3 g/dL (6.4-8.2)
[2016-12-15] MEDS: ISOSORBIDE DINITRATE (20MG) 20 MG TABLET PO SCH ×2 (08:49→17:00)
[2016-12-15] MEDS: PANTOPRAZOLE 40 MG TABLET.DR PO SCH (08:50)
[2016-12-15] MEDS: NIFEdipine XL (30MG) 30 MG TAB PO SCH (08:50)
[2016-12-15] MEDS: CARVEDILOL 6.25 MG TABLET PO SCH ×2 (08:51→17:15)
[2016-12-15] MEDS: hydrALAZINE HCL 50 MG TABLET PO SCH ×3 (08:51→17:57)
[2016-12-15] MEDS: MORPHINE SULFATE INJ 2 MG/ML DISP.SYRIN IV PRN ×2 (08:53→14:48)
[2016-12-15] MEDS: ENOXAPARIN SODIUM 40 MG/0.4 ML DISP.SYRIN SQ SCH (09:00)
--- NOTE | 2016-12-15 09:18 | NUR ---
RN NOTE RECEIVED HEMOGLOBIN AND HEMATOCRIT LEVELS 7.03/28. CALLED WILDER CARTAGENA NP TO NOTIFY HER ABOUT PATIENT'S LEVELS. WILDER ASKED ME TO HOLD LOVENOX DOSE FOR THIS MORNING AND TO MONITOR TO ANY SIGNS OF BLEEDING AND IF SEEN TO NOTIFY HER. NOTIFIED CHARGE NURSE. WILL CONTINUE TO MONITOR
--- NOTE | 2016-12-15 09:30 | NUR ---
RN NOTE PATIENT IS NO LONGER ON TELE MONITORING. WILL ENDORSE TO TOUR COORDINATOR NURSE
[2016-12-15] MEDS: FUROSEMIDE 40 MG TABLET PO SCH (10:03)
[2016-12-15] MEDS: POTASSIUM CHLORIDE 20 MEQ TAB.PRT.SR PO SCH (10:03)
[2016-12-15] MEDS: SOD FERRIC GLUC 125 MG in IV NS 0.9% 100 ML IV SCH (14:48)
[2016-12-15] MEDS ORDERED: IV SET PRIMARY PUMP SET 1 EA INFUS.SET MC ONE (15:00)
[2016-12-15 16:00] VITALS: BP 119/66
--- NOTE | 2016-12-15 18:39 | NUR ---
MS RN CLOSING NOTE PATIENT IS ALERT AND ORIENTED x4. NO SOB OR DISTRESS AT THIS TIME. ALL DUE MEDICATIONS GIVEN ORDERED. CALL LIGHT WITHIN REACH AT ALL TIMES. SAFETY MEASURES IMPLEMENTED. OUT OF BED WITH ASSISTANCE. IV INTACT AND PATENT NO REDNESS OR SWELLING NOTED. TO HAVE ULTRASOUND OF RIGHT LOWER EXTREMITY. ABLE TO COMMUNICATE NEEDS. WILL ENDORSE TO FUEL EFFICIENT AIRCRAFT DESIGNER NURSE
--- NOTE | 2016-12-15 19:35 | NUR ---
ms n initial notes: received report from amanda wilcox. pt in bed, awake, a/o x4, on room air, respiration even and unlabored. denies any chest pain or discomfort at this time. pt has corrine iv g20 and suzie midline, both patent and flushing well, no s/s/ of redness or infiltration noted. makeda carter would like pt to be on room air, currently saturating 95%, ble offloaded. safety precautions for fall initiated call light in reach, will continue to monitor
[2016-12-15 20:00] VITALS: BP 133/78
[2016-12-15 21:28] VITALS: BP 140/66
[2016-12-15] MEDS ORDERED: DOXAZOSIN MESYLATE (1 MG) 1 MG TABLET PO SCH (22:00)
[2016-12-16] MEDS: ZOLPIDEM TARTRATE 5 MG TABLET PO PRN (01:05)
--- NOTE | 2016-12-16 01:06 | NUR ---
ms rn notes: pt requested for sleeping pill, prn ambien 5mg tab po administered to the pt at this time, educate pt regarding medication side effect, will continue to monitor
--- NOTE | 2016-12-16 06:32 | NUR ---
ms rn closing notes: pt in bed, awake, remains on room air spo2 ranging 94-95%, respiration even and unlabored, no apparent distress noted, denies any chest pain or discomfort. corrine iv and suzie midline remains patent and flushing well, on hl. no s/s of infiltration or redness on site noted. ble kept offloaded. vs remains stable, needs attended. for david of rle today. will endorse to day rn for edgar.
--- NOTE | 2016-12-16 07:39 | NUR ---
MS/RN OPENING NOTE PT. IS LYING IN BED A&OX4. NO S/S OF SOB, NO S/S OF DISTRESS. PT. IS BREATHING ON ROOM AIR. WALKER NEAR BEDSIDE. BED IS IN LOW POSITION, CALL LIGHT WITHIN REACH, AND ALL NEEDS ATTENDED TO.
[2016-12-16 08:00] VITALS: BP_SYST 132; BP_SYST 134; BP_DIAS 65
[2016-12-16] MEDS: BOOST PLUS FOOD-CHOCLATE 237 ML BOX PO SCH ×3 (08:00→18:16)
[2016-12-16] MEDS: hydrALAZINE HCL 50 MG TABLET PO SCH ×3 (09:02→17:00)
[2016-12-16] MEDS: CARVEDILOL 6.25 MG TABLET PO SCH ×2 (09:02→18:17)
[2016-12-16] MEDS: PANTOPRAZOLE 40 MG TABLET.DR PO SCH (09:03)
[2016-12-16] MEDS: FUROSEMIDE 40 MG TABLET PO SCH (09:03)
[2016-12-16] MEDS: NIFEdipine XL (30MG) 30 MG TAB PO SCH (09:04)
[2016-12-16 09:13] LABS: BASOPHILS # (AUTO) 0.1 /CMM (0.0-0.2); BASOPHILS % (AUTO) 0.7 % (0.0-2.0); EOSINOPHILS # (AUTO) 0.4 /CMM (0.0-0.7); EOSINOPHILS % (AUTO) 4.7 % (0.0-6.0); HEMATOCRIT 25 % (33-45); HEMOGLOBIN 7.6 g/dL (11.5-14.8); LYMPHOCYTES % (AUTO) 11.3 % (20.0-44.0); MEAN CORPUSCULAR HEMOGLOBIN 26 PG (26.0-33.0); MEAN CORPUSCULAR HGB CONC 31 g/dl (31.0-36.0); MEAN CORPUSCULAR VOLUME 82 fL (82-100); MONOCYTES # (AUTO) 0.7 /CMM (0.1-1.30); MONOCYTES % (AUTO) 7.9 % (2.0-12.0); NEUTROPHILS # (AUTO) 6.4 /CMM (1.8-8.9); NEUTROPHILS % (AUTO) 75.4 % (43.0-81.0); PLATELET COUNT (AUTO) 181 /CMM (150-450); RDW COEFFICIENT OF VARIATION 19.2 (11.5-15.0); RED BLOOD CELL COUNT(AUTO) 2.98 MIL/uL (4.0-5.2); WHITE BLOOD COUNT (AUTO) 8.4 K/uL (4.3-11.0)
[2016-12-16 09:56] LABS: CALCIUM, SERUM 8.5 mg/dL (8.5-10.1); CREATININE 2.5 mg/dL (0.6-1.3); POTASSIUM 3.8 mmol/L (3.5-5.1)
[2016-12-16] MEDS: POTASSIUM CHLORIDE 20 MEQ TAB.PRT.SR PO SCH (10:12)
[2016-12-16] MEDS: ENOXAPARIN SODIUM 40 MG/0.4 ML DISP.SYRIN SQ SCH (10:13)
[2016-12-16] MEDS: ISOSORBIDE DINITRATE (20MG) 20 MG TABLET PO SCH ×2 (10:24→17:00)
[2016-12-16] MEDS ORDERED: EPOETIN ALFA (20,000 UNIT) 20,000 UNIT/ML VIAL SQ ONE (13:00)
[2016-12-16 13:19] LABS: IRON, SERUM 108 ug/dl (50-175); TOTAL IRON BINDING CAPACITY 316 ug/dl (250-450)
[2016-12-16] MEDS ORDERED: Nifedipine PO (15:02)
[2016-12-16] MEDS ORDERED: DOXA1TAB17 PO (15:02)
[2016-12-16] MEDS ORDERED: Hydralazine Hcl PO (15:02)
[2016-12-16] MEDS ORDERED: Isosorbide Dinitrate PO (15:02)
[2016-12-16] MEDS ORDERED: SECONDARY IV SET 1 EA INFUS.SET MC ONE (15:17)
[2016-12-16] MEDS ORDERED: IV SET PRIMARY PUMP SET 1 EA INFUS.SET MC ONE (15:21)
[2016-12-16] MEDS ORDERED: ALBU6.7H INH (15:29)
[2016-12-16] MEDS: SOD FERRIC GLUC 125 MG in IV NS 0.9% 100 ML IV SCH (15:29)
[2016-12-16] MEDS ORDERED: IV NS 0.9% 250 ML IV ONE (15:30)
[2016-12-16 16:00] VITALS: BP 127/86
[2016-12-16 18:17] VITALS: BP 127/86
--- NOTE | 2016-12-16 19:00 | NUR ---
MS/ CONTRACTS PARALEGAL PT. WAS DISCHARGED HOME IN STABLE CONDITION. PT. LEFT WITH FAMILY IN A CAR. DISCHARGE INSTRUCTIONS WERE PROVIDED AND PACKET TO TAKE HOME. PROVIDED HOME MEDICATIONS FROM PHARMACY, AND CANE. CHECKED BELONGINGS LIST. REMOVED LEFT AND RIGHT IV'S, NO SIGNS OF BLEEDING ON REMOVAL. PT. WAS REINFORCED TO FOLLOW UP WITH ROLLWAY WORKER IN 1 -2 WEEKS, AND TO SEE PRIMARY CARE PROVIDER WITHIN A WEEK. REMOVED PT. ID AND BLOOD TRANSFUSION BANDS.
[2016-12-18] MEDS ORDERED: CLONIDINE HCL 0.2MG/24H PTWK 1 EA PATCH TD SCH (21:30)
== END 2016-12-16 19:30 | disposition home or self-care (01) | DRG 280 ==
LOC: ER 20:18 → ICU 22:23 → TELE 12-14 17:00 → MED 12-15 09:51
PROC: 5A09357 Assistance with Respiratory Ventilation, Less than 24 Consecutive Hours, Continuous Positive Airway Pressure (ICD-10-PCS; 2016-12-12)
PROC: 05HB33Z Insertion of Infusion Device into Right Basilic Vein, Percutaneous Approach (ICD-10-PCS; 2016-12-12)
PROC: B54MZZA Ultrasonography of Right Upper Extremity Veins, Guidance (ICD-10-PCS; 2016-12-12)
PROC: 30233N1 Transfusion of Nonautologous Red Blood Cells into Peripheral Vein, Percutaneous Approach (ICD-10-PCS; principal; 2016-12-13)
DX: I13.0 Hypertensive heart and chronic kidney disease with heart failure and stage 1 through stage 4 chronic kidney disease, or unspecified chronic kidney disease (principal); I50.33 Acute on chronic diastolic (congestive) heart failure; I21.4 Non-ST elevation (NSTEMI) myocardial infarction; J96.90 Respiratory failure, unspecified, unspecified whether with hypoxia or hypercapnia; E44.0 Moderate protein-calorie malnutrition; N17.9 Acute kidney failure, unspecified; J90 Pleural effusion, not elsewhere classified; Q60.0 Renal agenesis, unilateral; N18.3 Chronic kidney disease, stage 3 (moderate); E11.22 Type 2 diabetes mellitus with diabetic chronic kidney disease; D50.9 Iron deficiency anemia, unspecified; E78.5 Hyperlipidemia, unspecified; K21.9 Gastro-esophageal reflux disease without esophagitis; Z90.5 Acquired absence of kidney; Z88.0 Allergy status to penicillin; Z90.710 Acquired absence of both cervix and uterus; Z87.442 Personal history of urinary calculi; E88.09 Other disorders of plasma-protein metabolism, not elsewhere classified; G47.33 Obstructive sleep apnea (adult) (pediatric); E66.9 Obesity, unspecified; Z68.32 Body mass index [BMI] 32.0-32.9, adult; I25.10 Atherosclerotic heart disease of native coronary artery without angina pectoris; Z88.2 Allergy status to sulfonamides; Z88.1 Allergy status to other antibiotic agents; I87.2 Venous insufficiency (chronic) (peripheral)
CPT/HCPCS: 36415; 36600; 71010-TC; 80048-TC; 80053-TC; 80061-TC; 82803-TC; 83540-TC; 83735-TC; 83880; 84100-TC; 84443-TC; 84484-TC; 85025-TC; 85027-TC; 85378-TC; 85730-TC; 86850-TC; 86921-TC; 87081-TC; 93971-TC; 97001-TC; A4216; A4606; C1751; C9113; J0885; J1650; J1940; J2270; J2405; J2916; J3475; J3490; J7030; J7050; P9016-BL; Z7610

== ENCOUNTER 2017-01-06 20:07 | Inpatient (IN) | payer MEDICARE, OTHER ==
[~2017-01-06] VITALS: Ht 165.1 cm; Wt 93.0 kg
[~2017-01-06 20:07] MED LIST changes: +ALBU6.7H INH; -AMLO10TA2 PO; +DOXA1TAB17 PO; +Hydralazine Hcl PO; -ISOS40TA16 PO; +Isosorbide Dinitrate PO; +Nifedipine PO
--- NOTE | 2017-01-06 20:37 | NUR ---
bib self from home for chest pain and sob for the past 1 hour prior to arrival, patient has bilateral lower extremity edema, patient has hx of chf, was hospitalized recently for the same complaints, patient is verbally responsive, a/o x4, able4 to pivot from w/c to bed, placed on monitor, dr. moore at bedside upon arrival. will continue to monitor closely.
[2017-01-06 20:51] LABS: BASOPHILS % (AUTO) 0.2 % (0.0-2.0); EOSINOPHILS # (AUTO) 1.2 /CMM (0.0-0.7); EOSINOPHILS % (AUTO) 13.9 % (0.0-6.0); HEMATOCRIT 30 % (33-45); HEMOGLOBIN 9.6 g/dL (11.5-14.8); LYMPHOCYTES # (AUTO) 0.9 /CMM (0.8-4.8); LYMPHOCYTES % (AUTO) 10.2 % (20.0-44.0); MEAN CORPUSCULAR HEMOGLOBIN 26 PG (26.0-33.0); MEAN CORPUSCULAR HGB CONC 32 g/dl (31.0-36.0); MEAN CORPUSCULAR VOLUME 80 fL (82-100); MONOCYTES # (AUTO) 0.5 /CMM (0.1-1.30); MONOCYTES % (AUTO) 5.5 % (2.0-12.0); NEUTROPHILS # (AUTO) 5.8 /CMM (1.8-8.9); NEUTROPHILS % (AUTO) 70.2 % (43.0-81.0); PLATELET COUNT (AUTO) 252 /CMM (150-450); RDW COEFFICIENT OF VARIATION 18.8 (11.5-15.0); RED BLOOD CELL COUNT(AUTO) 3.74 MIL/uL (4.0-5.2); WHITE BLOOD COUNT (AUTO) 8.4 K/uL (4.3-11.0)
--- NOTE | 2017-01-06 20:56 | NUR ---
CALLED NURSING DIRECTOR OF RECREATION THERAPY FOR MIDLINE
[2017-01-06 20:59] LABS: CALCIUM, SERUM 8.8 mg/dL (8.5-10.1); CARBON DIOXIDE 29 mmol/L (21-32); CHLORIDE 108 mmol/L (98-107); CREATININE 1.9 mg/dL (0.6-1.3); GLUCOSE 209 mg/dL (74-106); POTASSIUM 3.3 mmol/L (3.5-5.1); SODIUM SERUM 143 mmol/L (136-145); UREA NITROGEN, BLOOD 21 mg/dL (7-18)
[2017-01-06] MEDS ORDERED: ASPIRIN 81 MG TAB.CHEW PO ONE (21:00)
[2017-01-06] MEDS ORDERED: NITROGLYCERIN PACKET 1 GM PACKET TOP ONE (21:00)
[2017-01-06] MEDS ORDERED: FUROSEMIDE 40 MG/4 ML VIAL IV ONE (21:00)
[2017-01-06 21:03] LABS: INR 0.99 (0.87-1.13); PROTHROMBIN TIME 10.3 SECS (9.5-12.7)
[2017-01-06 21:07] LABS: TROPONIN I < 0.017 ng/mL (0.00-0.056)
[2017-01-06] MEDS ORDERED: NITROGLYCERIN PACKET 1 GM PACKET ONE (21:10)
[2017-01-06] MEDS ORDERED: FUROSEMIDE 40 MG/4 ML VIAL ONE (21:10)
[2017-01-06] MEDS ORDERED: ASPIRIN EC 81 MG TABLET.DR PO ONE (21:10)
[2017-01-06 21:12] LABS: ALANINE AMINOTRANSFERASE 11 U/L (12-78); ALBUMIN 3.3 g/dL (3.4-5.0); ALKALINE PHOSPHATASE 112 U/L (46-116); ASPARTATE AMINOTRANSFERASE 16 U/L (15-37); B-TYPE NATRIURETIC PEPTIDE 10693 PG/ML (0-125); BILIRUBIN,DIRECT 0.1 mg/dL (0.0-0.2); BILIRUBIN,TOTAL 0.4 mg/dL (0.2-1.0); TOTAL PROTEIN, SERUM 7.9 g/dL (6.4-8.2)
--- NOTE | 2017-01-06 21:25 | NUR ---
DR ELLIOTT SPOKE TO DR HALEY LONGORIA
--- NOTE | 2017-01-06 21:42 | NUR ---
REPORT GIVEN TO CLIFFORD COBOS FOR ROOM 111 B 2
[2017-01-06] MEDS ORDERED: MORPHINE SULFATE INJ 2 MG/ML DISP.SYRIN IM PRN (22:00)
[2017-01-06] MEDS ORDERED: ONDANSETRON 4 MG TAB.RAPDIS PO PRN (22:00)
--- NOTE | 2017-01-06 22:04 | NUR ---
awaiting picc line nurse
[2017-01-06] MEDS ORDERED: MORPHINE SULFATE INJ 2 MG/ML DISP.SYRIN ONE (22:21)
[2017-01-06] MEDS ORDERED: ONDANSETRON 4 MG TAB.RAPDIS ONE (22:22)
[2017-01-06] MEDS ORDERED: MORPHINE SULFATE INJ 2 MG/ML DISP.SYRIN IV ONE (22:30)
--- NOTE | 2017-01-06 22:30 | NUR ---
RN ADMITTING NOTES: RECEIVED PATIENT FROM ER VIA GURNEY, AWAKE ALOX4 AND VERBALLY RESPONSIVE. PLACED ON O2 THERAPY 2LPMM WITH NOTED DYSPNEA UPON EXERTION. ABLE TO AMBULATE WITH A CANE. ASSISTED PRN. IV ACCESS ON MARGAUX MIDLINE PATENT AND INTACT, WITH GOOD BLOOD RETURN. SKIN CHECK DONE, DENIES ANY SKIN ISSUE. ATTACHED TO CARIDAC MONITOR REVEALS SINUS TACH AT 103 BPM. PATIENT VERBALIZES SHE IS PAIN FREE AT THIS TIME. NOTED BLOOD PRESSURE TO BE ELEVATED, PATIENT CLAIMS HER BLOOD PRESSURE SHOOTS UP TO 200 SOMETIMES. TO CARRY OUT MD ORDERS, FOR BLOOD PRESSURE MEDS. SAFETY MEASURES ENSURED. CALL LIGHT WITHIN REACH. CONTINUOUSLY MONITORED ACCORDINGLY. [id number] RN NOTES: DR DE LEON IN TO ASSESS PATIENT. WITH ADDITIONAL ORDERS FOR BUMEX 1MG IV DAILY WELL TO PLACE PATIENT IN MILD SLIDING SCALE. CONTINUOUSLY MONITORED PATIENT 01/07/17 0015 PATIENT REQUESTING FOR A SLEEPING PILL AT THIS TIME. SPOKE TO DR DE LEON WITH ORDERS FOR AMBIEN 5MG PO HS PRN. NOTED AND CARRIED OUT. TO MONITOR PATIENT'S RESPONSE TO MEDICATION.
[2017-01-06 23:00] VITALS: BP 182/79
[2017-01-06] MEDS ORDERED: MORPHINE SULFATE INJ 2 MG/ML DISP.SYRIN IV PRN (23:00)
[2017-01-06] MEDS ORDERED: POTASSIUM CHLORIDE 20 MEQ TAB.PRT.SR PO ONE ×2 (23:00→23:10)
[2017-01-06] MEDS ORDERED: ONDANSETRON HCL/PF 4 MG/2 ML VIAL IVP PRN (23:00)
[2017-01-06] MEDS ORDERED: NITROGLYCERIN 30 GM TUBE TOP PRN (23:00)
[2017-01-06] MEDS ORDERED: LEVALBUTEROL HCL NEB 1.25 MG/0.5 ML VIAL.NEB NEB PRN (23:00)
[2017-01-06] MEDS ORDERED: Z GUARD REMEDY 2 OZ OINT TP PRN (23:00)
[2017-01-06] MEDS ORDERED: CARVEDILOL 12.5 MG TABLET ONE (23:08)
[2017-01-06] MEDS ORDERED: hydrALAZINE HCL 50 MG TABLET ONE (23:08)
[2017-01-06] MEDS ORDERED: ISOSORBIDE DINITRATE (20MG) 20 MG TABLET ONE (23:09)
[2017-01-06] MEDS: CARVEDILOL 12.5 MG TABLET PO SCH (23:30)
[2017-01-06] MEDS: hydrALAZINE HCL 50 MG TABLET PO SCH (23:31)
[2017-01-06] MEDS: ISOSORBIDE DINITRATE (20MG) 20 MG TABLET PO SCH (23:31)
[2017-01-07] VITALS: BP 188/85
[2017-01-07] MEDS ORDERED: DEXTROSE 50%-WATER 50 ML DISP.SYRIN IV PRN
[2017-01-07] MEDS ORDERED: ZOLPIDEM TARTRATE 5 MG TABLET ONE (00:03)
[2017-01-07] MEDS: ZOLPIDEM TARTRATE 5 MG TABLET PO PRN ×2 (00:07→23:03)
[2017-01-07 04:00] VITALS: BP 147/67
[2017-01-07 06:21] LABS: BASOPHILS % (AUTO) 0.3 % (0.0-2.0); EOSINOPHILS # (AUTO) 1.2 /CMM (0.0-0.7); EOSINOPHILS % (AUTO) 17.9 % (0.0-6.0); HEMATOCRIT 25 % (33-45); HEMOGLOBIN 7.9 g/dL (11.5-14.8); LYMPHOCYTES % (AUTO) 15.3 % (20.0-44.0); MEAN CORPUSCULAR HEMOGLOBIN 26 PG (26.0-33.0); MEAN CORPUSCULAR HGB CONC 32 g/dl (31.0-36.0); MEAN CORPUSCULAR VOLUME 80 fL (82-100); MONOCYTES # (AUTO) 0.6 /CMM (0.1-1.30); MONOCYTES % (AUTO) 8.3 % (2.0-12.0); NEUTROPHILS # (AUTO) 3.9 /CMM (1.8-8.9); NEUTROPHILS % (AUTO) 58.2 % (43.0-81.0); PLATELET COUNT (AUTO) 205 /CMM (150-450); RDW COEFFICIENT OF VARIATION 19.8 (11.5-15.0); RED BLOOD CELL COUNT(AUTO) 3.06 MIL/uL (4.0-5.2); WHITE BLOOD COUNT (AUTO) 6.7 K/uL (4.3-11.0)
[2017-01-07] MEDS ORDERED: hydrALAZINE HCL 50 MG TABLET ONE (06:25)
[2017-01-07] MEDS: BLOOD SUGAR DIAGNOSTIC 1 EACH STRIP IN SCH ×4 (06:31→22:32)
[2017-01-07] MEDS: hydrALAZINE HCL 50 MG TABLET PO SCH ×3 (06:37→20:32)
[2017-01-07] MEDS: INSULIN REGULAR, HUMAN 100 UNIT/ML 3 ML VIAL SQ PRN ×3 (06:38→22:37)
[2017-01-07 06:51] LABS: TROPONIN I 0.024 ng/mL (0.00-0.056)
--- NOTE | 2017-01-07 06:58 | NUR ---
RN CLOSING NOTES: PT REMAINS IN BED NOT IN APPARENT DISTRESS. KEPT ON O2 THERAPY, TOLERATED WELL. REMAINED SR ON MONITOR HR AT 89. IV ACCESS REMAINED INTACT, AM LABS DRAWN,RESULTS PENDING. NO COMPLAINTS OF PAIN AT THIS TIME. SAFETY MEASURES ENSURED AT ALL TIMES. CALL LIGHT WITHIN REACH. CONTINUOUSLY MONITORED. ENDORSED TO AM SHIFT RN.
[2017-01-07 07:08] LABS: ALANINE AMINOTRANSFERASE 14 U/L (12-78); ALBUMIN 2.6 g/dL (3.4-5.0); ALKALINE PHOSPHATASE 86 U/L (46-116); ASPARTATE AMINOTRANSFERASE 14 U/L (15-37); BILIRUBIN,TOTAL 0.3 mg/dL (0.2-1.0); CALCIUM, SERUM 7.9 mg/dL (8.5-10.1); CARBON DIOXIDE 27 mmol/L (21-32); CHLORIDE 109 mmol/L (98-107); CREATININE 1.8 mg/dL (0.6-1.3); GLUCOSE 149 mg/dL (74-106); MAGNESIUM 1.9 mg/dL (1.8-2.4); PHOSPHORUS 4.7 mg/dL (2.5-4.9); POTASSIUM 3.9 mmol/L (3.5-5.1); SODIUM SERUM 144 mmol/L (136-145); TOTAL PROTEIN, SERUM 6.4 g/dL (6.4-8.2); UREA NITROGEN, BLOOD 21 mg/dL (7-18)
--- NOTE | 2017-01-07 07:35 | NUR ---
AUTOMOBILE ASSEMBLY SUPERVISOR INITIAL NOTES: PT IN BED NOT IN APPARENT DISTRESS.ON 2 L NC O2 , TOLERATED WELL. SR ON MONITOR . IV ACCESS REMAINED INTACT, AM LABS DRAWN,RESULTS PENDING. NO COMPLAINTS OF PAIN AT THIS TIME. SAFETY MEASURES ENSURED AT ALL TIMES. BED LOCKED TO LOWEST POSITION CALL LIGHT WITHIN REACH. CONTINUOUSLY MONITORED.DAYSHIFT NURSING STAFF WILL CONTINUE TO FOLLOW.
[2017-01-07 08:00] VITALS: BP 156/71
[2017-01-07 08:13] LABS: IRON, SERUM 33 ug/dl (50-175); TOTAL IRON BINDING CAPACITY 231 ug/dl (250-450)
[2017-01-07] MEDS: FERROUS SULFATE (325 MG) 325 MG/TAB TABLET PO SCH ×2 (08:30→20:32)
[2017-01-07] MEDS ORDERED: ALBUTEROL HALF STRENGTH 1.25 MG/3 ML VIAL.NEB NEB PRN (08:30)
[2017-01-07] MEDS: PANTOPRAZOLE 40 MG TABLET.DR PO SCH (08:30)
[2017-01-07] MEDS: ASPIRIN EC 81 MG TABLET.DR PO SCH (08:30)
[2017-01-07] MEDS: DOCUSATE SODIUM 100 MG CAPSULE PO SCH ×2 (08:30→16:53)
[2017-01-07] MEDS: CARVEDILOL 12.5 MG TABLET PO SCH (08:31)
[2017-01-07] MEDS: ISOSORBIDE DINITRATE (20MG) 20 MG TABLET PO SCH ×2 (08:34→20:33)
[2017-01-07] MEDS: NIFEdipine XL (30MG) 30 MG TAB PO SCH (08:39)
[2017-01-07] MEDS ORDERED: BUMETANIDE INJ 0.25 MG/ML VIAL IV SCH (09:00)
[2017-01-07] MEDS ORDERED: BUMETANIDE INJ 4 MG in IV D5W 24 ML IV ONE (10:30)
--- NOTE | 2017-01-07 11:22 | NUR ---
rntele note Nursing staff contact Dr. Pittman in regards to patient once Bumex order.NURSING STAFF AWAITING RETURN PHONE CALL
[2017-01-07 12:00] VITALS: BP 150/68
[2017-01-07] MEDS: FUROSEMIDE 100 MG/10 ML VIAL IV SCH ×3 (12:12→20:31)
--- NOTE | 2017-01-07 13:35 | NUR ---
DRIVER/REFUSE COLLECTOR NOTE PT EVALUATION FINDS THAT PATIENT NEEDS A WALKER IF DISCHARGED TO THE HOME. PATIENT AMBULATED 80 FEET WITH ASSISTANCE
[2017-01-07 16:00] VITALS: BP 143/68
--- NOTE | 2017-01-07 17:00 | NUR ---
SENIOR SUPPLIER QUALITY ENGINEER NOTE CASE MANAGEMENT CONTACTED IN REGARDS TO THE PATIENT REQUEST FOR LETTER FROM A HOSPITAL DIGITAL MANAGER TO VERIFY HOSPITALIZATION FOR SECTION 8 AUTHORIZATION. NURSING STAFF ADVISED THAT CASE MANAGEMENT WILL CONTACT THE PATIENT ON 01/08/27
--- NOTE | 2017-01-07 17:56 | NUR ---
telephone answering service operator note pt refused CBG coverage for 140 states she doesn't feel she need coverage, nursing staff ACKNOWLEDGES PATIENTS REQUEST
--- NOTE | 2017-01-07 18:25 | NUR ---
MEDIA BUYER CLOSING NOTES: PT REMAINS IN BED NOT IN APPARENT DISTRESS. KEPT ON O2 2 L THERAPY, TOLERATED WELL. REMAINED SR ON MONITOR. IV ACCESS REMAINED INTACT, AM LABS DRAWN AND AM STRESS TEST ORDER PATIENT NPO , NO CAFFEINE AFTER PM DINNER PT NOTIFIED AND ACKNOWLEDGED UNDERSTANDING. NO COMPLAINTS OF PAIN AT THIS TIME. SAFETY MEASURES ENSURED AT ALL TIMES. CALL LIGHT WITHIN REACH. CONTINUOUSLY MONITORED. ENDORSED TO PM SHIFT RN.
--- NOTE | 2017-01-07 19:30 | NUR ---
BRINELL TESTER INITIAL NOTE RECEIVED REPORT FROM SOFÍA COBOS. PT IN BED. A/A/O X4. LUNG SOUNDS MINIMAL CRACKLES. BOWEL SOUNDS PRESENT WITH BRP. PULSES PRESENT IN LOWER EXTREMITIES. BED IN LOW LOCKED POSITION. CALL LIGHT WITHIN REACH. WILL CONTINUE TO MONITOR.
[2017-01-07 20:00] VITALS: BP 146/58
[2017-01-07] MEDS: CARVEDILOL 6.25 MG TABLET PO SCH (20:32)
[2017-01-07] MEDS: ATORVASTATIN 10 MG TABLET PO SCH (22:32)
[2017-01-07] MEDS: DOXAZOSIN MESYLATE (1 MG) 1 MG TABLET PO SCH (22:32)
[2017-01-08] VITALS: BP 105/60
[2017-01-08 04:00] VITALS: BP 148/66
[2017-01-08] MEDS: hydrALAZINE HCL 50 MG TABLET PO SCH ×3 (05:41→21:11)
[2017-01-08 06:46] LABS: EOSINOPHILS # (AUTO) 1.4 /CMM (0.0-0.7); EOSINOPHILS % (AUTO) 19.7 % (0.0-6.0); HEMATOCRIT 26 % (33-45); HEMOGLOBIN 8.2 g/dL (11.5-14.8); LYMPHOCYTES # (AUTO) 1.1 /CMM (0.8-4.8); LYMPHOCYTES % (AUTO) 14.9 % (20.0-44.0); MEAN CORPUSCULAR HEMOGLOBIN 26 PG (26.0-33.0); MEAN CORPUSCULAR HGB CONC 32 g/dl (31.0-36.0); MEAN CORPUSCULAR VOLUME 81 fL (82-100); MONOCYTES # (AUTO) 0.6 /CMM (0.1-1.30); MONOCYTES % (AUTO) 8.7 % (2.0-12.0); NEUTROPHILS # (AUTO) 4.1 /CMM (1.8-8.9); NEUTROPHILS % (AUTO) 56.7 % (43.0-81.0); PLATELET COUNT (AUTO) 212 /CMM (150-450); RDW COEFFICIENT OF VARIATION 20.4 (11.5-15.0); RED BLOOD CELL COUNT(AUTO) 3.16 MIL/uL (4.0-5.2); WHITE BLOOD COUNT (AUTO) 7.2 K/uL (4.3-11.0)
[2017-01-08 07:09] LABS: ALANINE AMINOTRANSFERASE 15 U/L (12-78); ALBUMIN 2.7 g/dL (3.4-5.0); ALKALINE PHOSPHATASE 82 U/L (46-116); ASPARTATE AMINOTRANSFERASE 17 U/L (15-37); BILIRUBIN,TOTAL 0.4 mg/dL (0.2-1.0); CARBON DIOXIDE 27 mmol/L (21-32); CHLORIDE 106 mmol/L (98-107); CREATININE 2.1 mg/dL (0.6-1.3); GLUCOSE 131 mg/dL (74-106); MAGNESIUM 1.9 mg/dL (1.8-2.4); PHOSPHORUS 4.1 mg/dL (2.5-4.9); SODIUM SERUM 142 mmol/L (136-145); TOTAL PROTEIN, SERUM 6.6 g/dL (6.4-8.2); UREA NITROGEN, BLOOD 24 mg/dL (7-18)
[2017-01-08] MEDS: PANTOPRAZOLE 40 MG TABLET.DR PO SCH (07:30)
[2017-01-08] MEDS: INSULIN REGULAR, HUMAN 100 UNIT/ML 3 ML VIAL SQ PRN ×4 (07:39→21:20)
[2017-01-08] MEDS: BLOOD SUGAR DIAGNOSTIC 1 EACH STRIP IN SCH ×4 (07:39→21:12)
[2017-01-08 07:43] LABS: CHOLESTEROL 97 mg/dL (<200); HDL CHOLESTEROL 37 mg/dL (40-60); LDL 34 mg/dL (0-99); TRIGLYCERIDES 143 mg/dL (30-150)
[2017-01-08 07:55] LABS: CREATINE KINASE, TOTAL 36 U/L (26-192)
[2017-01-08 08:00] VITALS: BP 173/76
[2017-01-08] MEDS ORDERED: REGADENOSON 0.4 MG/5 ML DISP.SYRIN IVP ONE (08:00)
[2017-01-08] MEDS: DOCUSATE SODIUM 100 MG CAPSULE PO SCH ×2 (09:00→17:00)
[2017-01-08] MEDS: FERROUS SULFATE (325 MG) 325 MG/TAB TABLET PO SCH ×2 (09:00→21:11)
[2017-01-08] MEDS ORDERED: CLONIDINE HCL 0.2MG/24H PTWK 1 EA PATCH TD SCH (09:00)
--- NOTE | 2017-01-08 09:54 | NUR ---
Social service consult requested by pt. in regards to wanting a verification of admission letter for Section 8. ADILSON completed letter and gave it to SAM charger tester Amy to give to pt.
--- NOTE | 2017-01-08 11:30 | NUR ---
AM MEDS GIVEN LATE DUE TO PT AT NM STRESS TEST AND PT WAS NPO. WILL CONTINUE TO MONITOR.
[2017-01-08] MEDS: NIFEdipine XL (30MG) 30 MG TAB PO SCH (11:36)
[2017-01-08] MEDS: ASPIRIN EC 81 MG TABLET.DR PO SCH (11:36)
[2017-01-08] MEDS: CARVEDILOL 6.25 MG TABLET PO SCH ×2 (11:37→21:12)
[2017-01-08] MEDS: ISOSORBIDE DINITRATE (20MG) 20 MG TABLET PO SCH ×2 (11:37→21:11)
[2017-01-08 12:00] VITALS: BP 156/82
[2017-01-08 15:27] LABS: APPEARANCE,URINE SL CLOUDY (CLEAR); BILIRUBIN,URINE NEGATIVE (NEGATIVE); BLOOD, URINE NEGATIVE Ery/uL (NEGATIVE); COLOR,URINE YELLOW (YELLOW); KETONES,URINE NEGATIVE (NEGATIVE); LEUKOCYTE ESTERASE ,URINE 2+ (NEGATIVE); NITRITE, URINE NEGATIVE (NEGATIVE); PH,URINE 5.5 (5.0-8.0); PROTEIN,URINE 2+ mg/dl (NEGATIVE); UGLUCOSE NEGATIVE (NEGATIVE); UROBILINOGEN,URINE 0.2 EU/dL (0.2)
[2017-01-08 15:33] LABS: CREATININE, URINE 31.8 MG/DL (30.0-125.0); URINE TOTAL PROTEIN 127.3 mg/dL (0-11.9)
[2017-01-08 16:00] VITALS: BP_SYST 137; BP_SYST 157; BP_DIAS 68
[2017-01-08 16:17] LABS: BACTERIA,URINE Moderate /HPF (None Seen); RBC,URINE 0-2 /HPF (0-2); SQUAMOUS EPITHELIAL CELL,UR Few /HPF (None Seen); WBC,URINE 51-80 /HPF (0-3)
[2017-01-08 17:02] LABS: EOSINOPHIL,URINE None Seen
--- NOTE | 2017-01-08 19:30 | NUR ---
RN INITIAL NOTE RECEIVED REPORT FROM MESERET. PT IN BED. A/A/O X4. LUNG SOUNDS CLEAR. BOWEL SOUNDS PRESENT, BRP WITH BSC. PULSES PRESENT. IV PATENT AND INTACT. BED IN LOW LOCKED POSITION. CALL LIGHT WITHIN REACH. WILL CONTINUE TO MONITOR.
[2017-01-08 20:00] VITALS: BP 156/66
[2017-01-08] MEDS: DOXAZOSIN MESYLATE (1 MG) 1 MG TABLET PO SCH (21:11)
[2017-01-08] MEDS: ATORVASTATIN 10 MG TABLET PO SCH (21:11)
[2017-01-09] MEDS: ZOLPIDEM TARTRATE 5 MG TABLET PO PRN ×2 (00:35→23:39)
[2017-01-09 04:00] VITALS: BP 148/65
[2017-01-09] MEDS: hydrALAZINE HCL 50 MG TABLET PO SCH ×3 (05:17→21:15)
[2017-01-09 08:00] VITALS: BP_SYST 111; BP_SYST 152; BP_DIAS 52; BP_DIAS 66
[2017-01-09] MEDS: BLOOD SUGAR DIAGNOSTIC 1 EACH STRIP IN SCH ×4 (08:24→21:15)
[2017-01-09] MEDS: PANTOPRAZOLE 40 MG TABLET.DR PO SCH (09:24)
[2017-01-09] MEDS: CARVEDILOL 6.25 MG TABLET PO SCH ×2 (09:24→21:14)
[2017-01-09] MEDS: ASPIRIN EC 81 MG TABLET.DR PO SCH (09:25)
[2017-01-09] MEDS: NIFEdipine XL (30MG) 30 MG TAB PO SCH (09:25)
[2017-01-09] MEDS: FERROUS SULFATE (325 MG) 325 MG/TAB TABLET PO SCH ×2 (09:25→21:13)
[2017-01-09] MEDS: DOCUSATE SODIUM 100 MG CAPSULE PO SCH ×2 (09:25→16:53)
[2017-01-09] MEDS: ISOSORBIDE DINITRATE (20MG) 20 MG TABLET PO SCH ×2 (09:25→21:14)
--- NOTE | 2017-01-09 11:55 | NUR ---
MS RN NOTE 0720: Received patient resting well, easily arousable but feeling sleepy. BS 131. A/Ox3, aware for the POC. On 2LPM of O2 via NC. Able to use bedside commode. SP diuretics for CHF. MARGAUX midline intact. 0800: S/E by Dr. Landin, with order for stool OB, made patient aware to inform staffs if made BM. 1150: No any significant changes noted at time, will continue to monitor.
[2017-01-09] MEDS ORDERED: SOD FERRIC GLUC 125 MG in IV NS 0.9% 100 ML IV SCH (14:00)
[2017-01-09 16:00] VITALS: BP 143/71
[2017-01-09] MEDS ORDERED: IV SET PRIMARY PUMP SET 1 EA INFUS.SET MC ONE (16:03)
[2017-01-09] MEDS: INSULIN REGULAR, HUMAN 100 UNIT/ML 3 ML VIAL SQ PRN ×2 (17:27→21:29)
--- NOTE | 2017-01-09 19:30 | NUR ---
MS RN INITIAL NOTE RECEIVED PT IN BED WITH FAMILY AT BEDSIDE. A/O X4 AND ABLE TO MAKE NEEDS KNOWN. ON 2L OF O2 AND SATING WELL. IV SITE CLEAN, DRY AND INTACT, FLUSHING WELL. CALL LIGHT WITHIN EASY REACH AT ALL TIMES. WILL CONTINUE TO MONITOR.
[2017-01-09 20:00] VITALS: BP 151/75
[2017-01-09] MEDS: ATORVASTATIN 10 MG TABLET PO SCH (21:13)
[2017-01-09] MEDS: DOXAZOSIN MESYLATE (1 MG) 1 MG TABLET PO SCH (21:14)
[2017-01-10 04:00] VITALS: BP 163/73
[2017-01-10] MEDS: hydrALAZINE HCL 50 MG TABLET PO SCH ×2 (04:50→12:51)
[2017-01-10] MEDS: BLOOD SUGAR DIAGNOSTIC 1 EACH STRIP IN SCH ×2 (06:37→12:50)
[2017-01-10] MEDS: PANTOPRAZOLE 40 MG TABLET.DR PO SCH (06:37)
[2017-01-10] MEDS: INSULIN REGULAR, HUMAN 100 UNIT/ML 3 ML VIAL SQ PRN (06:43)
--- NOTE | 2017-01-10 06:49 | NUR ---
MS RN CLOSING NOTE NO ACUTE DISTRESS NOTED. 2L OF O2 AND SATING WELL. IV INTACT. CALL LIGHT WITHIN REACH AT ALL TIMES. WILL ENDORSE TO NEXT SHIFT FOR ARIAN.
--- NOTE | 2017-01-10 07:30 | NUR ---
INTIAL NOTE RESTING IN BED. A+OX3, LETHARGIC D/T JUST WAKING UP. DENIES PAIN, DENIES SOB. O2 @ 2L, TITRATED DOWN TO 1L AT THIS TIME. APPEARING IN STABLE CONDITION AT THIS TIME. CONFIRMS CONSTIPATION HOWEVER DENYING PRN MEDS AND PRUNE JUICE. DISCUSSED PLAN OF CARE FOR STOOL COLLECTION. INFORMED PATIENT TO CALL USING CALL LIGHT IF SHE NEEDS ANYTHING OR FEELS CHANGE IN ANY WAY. PATIENT VERBALIZED UNDERSTANDING BUT HAS GENERAL PASSIVENESS DEMEANOR. PLAN TO AMBULATE AND WEAN O2 TODAY TOLERATED. CALL LIGHT INR EACH
[2017-01-10 08:00] VITALS: BP 146/59
[2017-01-10 08:17] LABS: BASOPHILS % (AUTO) 0.2 % (0.0-2.0); EOSINOPHILS # (AUTO) 0.9 /CMM (0.0-0.7); EOSINOPHILS % (AUTO) 13.1 % (0.0-6.0); HEMATOCRIT 24 % (33-45); HEMOGLOBIN 7.7 g/dL (11.5-14.8); LYMPHOCYTES # (AUTO) 0.9 /CMM (0.8-4.8); LYMPHOCYTES % (AUTO) 12.8 % (20.0-44.0); MEAN CORPUSCULAR HEMOGLOBIN 26 PG (26.0-33.0); MEAN CORPUSCULAR HGB CONC 33 g/dl (31.0-36.0); MEAN CORPUSCULAR VOLUME 80 fL (82-100); MONOCYTES # (AUTO) 0.5 /CMM (0.1-1.30); MONOCYTES % (AUTO) 7.3 % (2.0-12.0); NEUTROPHILS # (AUTO) 4.7 /CMM (1.8-8.9); NEUTROPHILS % (AUTO) 66.6 % (43.0-81.0); PLATELET COUNT (AUTO) 231 /CMM (150-450); RDW COEFFICIENT OF VARIATION 19.8 (11.5-15.0); RED BLOOD CELL COUNT(AUTO) 2.93 MIL/uL (4.0-5.2)
[2017-01-10] MEDS: ISOSORBIDE DINITRATE (20MG) 20 MG TABLET PO SCH (08:46)
[2017-01-10] MEDS: FERROUS SULFATE (325 MG) 325 MG/TAB TABLET PO SCH (08:47)
[2017-01-10] MEDS: DOCUSATE SODIUM 100 MG CAPSULE PO SCH (08:47)
[2017-01-10] MEDS: ASPIRIN EC 81 MG TABLET.DR PO SCH (08:47)
[2017-01-10] MEDS: NIFEdipine XL (30MG) 30 MG TAB PO SCH (08:47)
[2017-01-10] MEDS ORDERED: CARVEDILOL 6.25 MG TABLET PO SCH (09:00)
--- NOTE | 2017-01-10 10:20 | NUR ---
INFORMED DR. MTZ OF HGB/HCT 7.7, 24. SAID MONITOR FOR NOW AND WILL HAVE GI W/U OUTPATIENT. SAID AMBULATE PATIENT WITH ASSISTANCE AND AFTER MD SEES PATIENT TODAY, OK TO D/C HOME PER ORDER ALREADY INPUT. O2 SAT ON ROOM AIR IS 94% FOR 1 HOUR. MD MADE AWARE.
[2017-01-10 12:51] VITALS: BP 140/104
--- NOTE | 2017-01-10 15:22 | NUR ---
patient ambulated with PT and tolerated activity, o2 sat 93% upon exertion. patient informed of discharge and performed ADL care independently& dressed self. reviewed medication and diagnosis with patient and provided ample education for preventative care. stressed importance of calling primary MD pj for review of hospitalization and continued home medication. when i asked patient if she had the medication listed to continue patient said "i don't know", when asked patient who knows she responded her primary care doctor know, told patient to call primary MD upon discharge and confirm that she has them all. told patient to f/u with dr. hoffman in 1 week with phone number provided. removed midline @ 1400 because patient said her family member was on their way- unable to administer ferlicit. patient still in room saying daughter on her way. patient signed belonging form, confirming having all belongings. signed discharge paper work and verbalized understanding of education.
--- NOTE | 2017-01-10 16:05 | NUR ---
patient left via wheelchair accompanied by daughter and STEM PROCESSING MACHINE OPERATOR. patient stable upon leaving. no bleeding from midline.
== END 2017-01-10 16:16 | disposition home or self-care (01) | DRG 291 ==
LOC: ER 20:07 → TELE1 21:30 → MEDSG1 01-08 11:35
PROVIDERS: ADMIT Internal Medicine; ATTEND Internal Medicine
PROC: 05H533Z Insertion of Infusion Device into Right Subclavian Vein, Percutaneous Approach (ICD-10-PCS; principal; 2017-01-06)
DX: I13.0 Hypertensive heart and chronic kidney disease with heart failure and stage 1 through stage 4 chronic kidney disease, or unspecified chronic kidney disease (principal); I50.33 Acute on chronic diastolic (congestive) heart failure; N17.0 Acute kidney failure with tubular necrosis; E44.0 Moderate protein-calorie malnutrition; K92.2 Gastrointestinal hemorrhage, unspecified; J90 Pleural effusion, not elsewhere classified; N18.3 Chronic kidney disease, stage 3 (moderate); E78.5 Hyperlipidemia, unspecified; Z68.33 Body mass index [BMI] 33.0-33.9, adult; Z90.5 Acquired absence of kidney; K21.9 Gastro-esophageal reflux disease without esophagitis; I25.2 Old myocardial infarction; I25.10 Atherosclerotic heart disease of native coronary artery without angina pectoris; E66.9 Obesity, unspecified; E11.22 Type 2 diabetes mellitus with diabetic chronic kidney disease; D50.9 Iron deficiency anemia, unspecified; E87.6 Hypokalemia; G47.33 Obstructive sleep apnea (adult) (pediatric); J98.9 Respiratory disorder, unspecified; E11.65 Type 2 diabetes mellitus with hyperglycemia; R19.5 Other fecal abnormalities; Z87.442 Personal history of urinary calculi; D63.8 Anemia in other chronic diseases classified elsewhere; N28.81 Hypertrophy of kidney; B96.20 Unspecified Escherichia coli [E. coli] as the cause of diseases classified elsewhere; R07.89 Other chest pain
CPT/HCPCS: 36415; 36569; 71010-TC; 76770-TC; 80048-TC; 80053-TC; 80061-TC; 80076-TC; 81000-TC; 82550-TC; 82570-TC; 82962-TC; 83540-TC; 83735-TC; 83880; 83970; 84100-TC; 84155-TC; 84300-TC; 84484-TC; 85025-TC; 85730-TC; 87081-TC; 87086-TC; 87186-TC; 94799-TC; 97001-TC; 97116-TC; 97530-TC; A4606; A9502; J1815; J1940; J2270; J2405; J2785; J2916; J3490; J7030; J7060; Q0162; Z7610

== ENCOUNTER 2017-02-09 18:23 | Inpatient (IN) | payer MEDICARE, OTHER ==
[~2017-02-09] VITALS: Ht 165.1 cm; Wt 90.3 kg
--- NOTE | 2017-02-09 18:50 | NUR ---
BB FAMILY FOR SOB X 2 DAYS, RECENTLY ADMITTED X 6 WEEKS AGO. SATING AT 89% RA. BP ELEVATED. SEEN BY MD FOR EVAL. SAFETY AND COMFORT MEASURES PROVIDED. WILL MONITOR.
--- NOTE | 2017-02-09 18:50 | NUR ---
CALLED NURSING VISUAL EFFECTS ARTIST FOR TELE BED
[2017-02-09] MEDS ORDERED: NITROGLYCERIN PACKET 1 GM PACKET TD ONE (19:00)
[2017-02-09] MEDS ORDERED: FUROSEMIDE 40 MG/4 ML VIAL IV ONE (19:00)
[2017-02-09] MEDS ORDERED: ASPIRIN 325 MG TABLET PO ONE (19:00)
--- NOTE | 2017-02-09 19:00 | NUR ---
UNABLE TO START IV ACCESS. PT MEDICATED ORDERED. ENDORSED TO POOL TABLE MECHANIC NURSE HERNANDEZ FOR ARIAN.
[2017-02-09] MEDS ORDERED: ASPIRIN 325 MG TABLET ONE (19:01)
[2017-02-09] MEDS ORDERED: FUROSEMIDE 40 MG/4 ML VIAL ONE (19:01)
[2017-02-09] MEDS ORDERED: NITROGLYCERIN PACKET 1 GM PACKET ONE (19:02)
[2017-02-09 19:07] LABS: BASOPHILS % (AUTO) 0.3 % (0.0-2.0); EOSINOPHILS # (AUTO) 2.2 /CMM (0.0-0.7); EOSINOPHILS % (AUTO) 22.4 % (0.0-6.0); HEMATOCRIT 27 % (33-45); HEMOGLOBIN 8.9 g/dL (11.5-14.8); LYMPHOCYTES # (AUTO) 0.8 /CMM (0.8-4.8); MEAN CORPUSCULAR HEMOGLOBIN 27 PG (26.0-33.0); MEAN CORPUSCULAR HGB CONC 33 g/dl (31.0-36.0); MEAN CORPUSCULAR VOLUME 80 fL (82-100); MONOCYTES # (AUTO) 0.3 /CMM (0.1-1.30); MONOCYTES % (AUTO) 3.5 % (2.0-12.0); NEUTROPHILS # (AUTO) 6.6 /CMM (1.8-8.9); NEUTROPHILS % (AUTO) 65.8 % (43.0-81.0); PLATELET COUNT (AUTO) 322 /CMM (150-450); RDW COEFFICIENT OF VARIATION 19.5 (11.5-15.0); RED BLOOD CELL COUNT(AUTO) 3.38 MIL/uL (4.0-5.2); WHITE BLOOD COUNT (AUTO) 9.9 K/uL (4.3-11.0)
[2017-02-09] MEDS ORDERED: ZOLP10TA6 PO (19:13)
[2017-02-09] MEDS ORDERED: LORA1TAB82 PO (19:13)
[2017-02-09] MEDS ORDERED: DOXA1TAB PO (19:13)
[2017-02-09] MEDS ORDERED: ISOS20TA8 PO (19:13)
[2017-02-09] MEDS ORDERED: CARI350T PO (19:13)
[2017-02-09] MEDS ORDERED: CLON0.3T PO (19:13)
[2017-02-09] MEDS ORDERED: NIFE30TA91 PO (19:13)
--- NOTE | 2017-02-09 19:15 | NUR ---
CALLED NURSING PULLER OVER FOR TELE BED
[2017-02-09 19:16] LABS: CALCIUM, SERUM 8.6 mg/dL (8.5-10.1); CARBON DIOXIDE 28 mmol/L (21-32); CHLORIDE 111 mmol/L (98-107); CREATININE 1.8 mg/dL (0.6-1.3); GLUCOSE 141 mg/dL (74-106); POTASSIUM 3.2 mmol/L (3.5-5.1); SODIUM SERUM 144 mmol/L (136-145); UREA NITROGEN, BLOOD 21 mg/dL (7-18)
[2017-02-09 19:18] LABS: PROTHROMBIN TIME 10.4 SECS (9.5-12.7)
--- NOTE | 2017-02-09 19:25 | NUR ---
REPORT GIVEN TO PAPITO NG
[2017-02-09 19:27] LABS: TROPONIN I < 0.017 ng/mL (0.00-0.056)
[2017-02-09 19:29] LABS: ALANINE AMINOTRANSFERASE 11 U/L (12-78); ALBUMIN 3.1 g/dL (3.4-5.0); ALKALINE PHOSPHATASE 71 U/L (46-116); ASPARTATE AMINOTRANSFERASE 19 U/L (15-37); B-TYPE NATRIURETIC PEPTIDE 3474 PG/ML (0-125); BILIRUBIN,DIRECT 0.1 mg/dL (0.0-0.2); BILIRUBIN,TOTAL 0.6 mg/dL (0.2-1.0); TOTAL PROTEIN, SERUM 7.6 g/dL (6.4-8.2)
[2017-02-09] MEDS ORDERED: NITROGLYCERIN 0.4 MG/TAB BOTTLE ONE (19:32)
[2017-02-09 19:35] LABS: BAND % (MANUAL) 2 % (0.0-5.0); EOSINOPHILS % (MANUAL) 14 % (0-4); LYMPHOCYTES % (MANUAL) 11 % (16-48); MONOCYTES % (MANUAL) 3 % (0-11.0); NEUTROPHILS % (MANUAL) 70 (42-76)
[2017-02-09] MEDS ORDERED: NITROGLYCERIN 0.4 MG/TAB BOTTLE SL ONE ×2 (20:00)
[2017-02-09] MEDS ORDERED: NTG 50 MG/D5W250 ML BOTTL 250 ML IV ONE ×2 (20:00→20:15)
--- NOTE | 2017-02-09 20:05 | NUR ---
CALLED NURSING SECURITY SPECIALIST TO UPGRADE TO SAM
[2017-02-09] MEDS ORDERED: IV SET PRIMARY PUMP SET 1 EA INFUS.SET MC ONE ×2 (20:15→23:28)
--- NOTE | 2017-02-09 20:26 | NUR ---
Dr Mcdowell at bedside and placed an IV on the right upper arm 18 g, patient amber procedure well.
--- NOTE | 2017-02-09 20:42 | NUR ---
Report given to Frank RN for [facility] admission and [facility].
--- NOTE | 2017-02-09 20:47 | NUR ---
Transported patient to [facility] floor via [facility] protocol, no incident noted. Nitrodrip running at 10mcg/min, to titrate to get desired bp. Endorsed to Frank RN.
[2017-02-09 20:55] VITALS: BP 191/94
--- NOTE | 2017-02-09 21:38 | NUR ---
SKEIN STRAIGHTENER NOTES RECEIVED PATIENT FROM ER VIA [facility], PATIENT'S BREATHING EVEN, NONLABORED AT THIS TIME, PER PATIENT IT HAS IMPROVED SINCE SHE FIRST CAME INTO ER, ON O2 VIA NC @ 2LPM, TOLERATING WELL, FREE FROM ANY S/S OF RESPIRATORY DISTRESS. PLACED ON TELEMETRY MONITORING, REVEALING SINUS RHYTHM @ 97BPM. PATIENT DENIES ANY CHEST PAIN. IV SITES LEFT INDEX FINGER #22 GAUGE AND RIGHT UPPER ARM #18 GAUGE, BOTH PATENT AND INTACT, RUE IV RUNNING NITRO @ 10MCG/MIN, INFUSING WELL, WILL MONITOR BP CLOSELY AND TITRATE NEEDED. SKIN ASSESSMENT PERFORMED, INTACT. UPDATE REGARDING PLAN OF CARE GIVEN TO THE PATIENT AND FAMILY MEMBERS WHO ARE AT BEDSIDE, ALL IN AGREEMENT REGARDING CURRENT PLAN. BED IN LOWEST AND LOCKED POSITION, HOB ELEVATED FOR COMFORT. PATIENT EDUCATED REGARDING CALL LIGHT SYSTEM AND WHEN/HOW TO ASK FOR HELP. WILL CONTINUE TO CLOSELY MONITOR
[2017-02-09] MEDS ORDERED: IV NS 0.9% 1,000 ML IV PRN (22:37)
[2017-02-09] MEDS ORDERED: BUMETANIDE INJ 6 MG in IV NS 0.9% 36 ML IV ONE (23:00)
[2017-02-09] MEDS ORDERED: ACETAMINOPHEN 325 MG TABLET PO PRN (23:00)
[2017-02-09] MEDS ORDERED: LORAZEPAM 1 MG TABLET PO PRN (23:00)
[2017-02-09] MEDS ORDERED: ONDANSETRON HCL/PF 4 MG/2 ML VIAL IVP PRN (23:00)
[2017-02-09] MEDS ORDERED: ZOLPIDEM TARTRATE 10 MG TABLET PO PRN (23:00)
[2017-02-09] MEDS ORDERED: Z GUARD REMEDY 2 OZ OINT TP PRN (23:00)
[2017-02-09] MEDS ORDERED: MORPHINE SULFATE INJ 4 MG/ML DISP.SYRIN IV PRN (23:00)
[2017-02-09] MEDS ORDERED: ENOXAPARIN SODIUM 40 MG/0.4 ML DISP.SYRIN SQ SCH (23:00)
[2017-02-09] MEDS ORDERED: BUMETANIDE INJ 0.25 MG/ML VIAL ONE ×2 (23:28→23:30)
[2017-02-09] MEDS ORDERED: IV NS 0.9% 1,000 ML ONE (23:28)
[2017-02-09] MEDS ORDERED: ENOXAPARIN SODIUM 40 MG/0.4 ML DISP.SYRIN SQ ONE (23:29)
[2017-02-09] MEDS ORDERED: IV NS 0.9% 50 ML IV ONE (23:29)
--- NOTE | 2017-02-09 23:30 | NUR ---
RN NOTES SPOKE TO DR LILIANA ARREOLA TO CLARIFY ORDERS. ADMIT TO ORDER IS FOR TELEMETRY STATUS, BUT PATIENT STARTED ON NITRO DRIP IN ER, CONTINUED AT THIS TIME. PER LILIANA ARREOLA, KEEP IN TELE STATUS, DC NITRO DRIP, AND HE WILL ORDER MEDICATION FOR BLOOD PRESSURE CONTROL. LILIANA ARREOLA ALSO WITH NEW ORDER TO INSERT SEGAL TO CLOSELY MONITOR URINE OUTPUT FOR BUMEX DRIP. ALL NEW ORDERS READ BACK FOR CLARIFICATION. WILL CONTINUE TO CLOSELY MONITOR
--- NOTE | 2017-02-09 23:45 | NUR ---
RN NOTES BUMEX DRIP MIXED, VERIFIED WITH CHARGE NURSE KATHY FOR PROPER DOSE CONCENTRATIONS. WILL CONTINUE TO CLOSELY MONITOR
[2017-02-10] VITALS: BP 191/91
[2017-02-10] MEDS ORDERED: hydrALAZINE HCL 50 MG TABLET ONE ×2 (00:05→04:41)
[2017-02-10] MEDS ORDERED: POTASSIUM CHLORIDE 20 MEQ TAB.PRT.SR PO ONE ×2 (00:05)
[2017-02-10] MEDS ORDERED: NIFEdipine XL 60 MG TAB PO ONE (00:06)
[2017-02-10] MEDS ORDERED: NIFEdipine XL (30MG) 30 MG TAB PO ONE (00:07)
[2017-02-10] MEDS: hydrALAZINE HCL 50 MG TABLET PO SCH ×4 (00:36→17:00)
[2017-02-10] MEDS: NIFEdipine XL 60 MG TAB PO SCH ×2 (00:45→08:45)
[2017-02-10 04:00] VITALS: BP 188/88
--- NOTE | 2017-02-10 04:42 | NUR ---
RN NOTES BLOOD PRESSURE CURRENTLY 188/88. DR LILIANA ARREOLA MADE AWARE WITH NEW ORDER FOR HYDRALAZINE 50 MG PO X1 NOW. WILL ADMINISTER MEDICATION AND MONITOR CLOSELY
[2017-02-10 04:54] LABS: BASOPHILS % (AUTO) 0.2 % (0.0-2.0); EOSINOPHILS # (AUTO) 2.1 /CMM (0.0-0.7); HEMATOCRIT 24 % (33-45); HEMOGLOBIN 7.7 g/dL (11.5-14.8); LYMPHOCYTES # (AUTO) 1.1 /CMM (0.8-4.8); LYMPHOCYTES % (AUTO) 13.3 % (20.0-44.0); MEAN CORPUSCULAR HEMOGLOBIN 26 PG (26.0-33.0); MEAN CORPUSCULAR HGB CONC 33 g/dl (31.0-36.0); MEAN CORPUSCULAR VOLUME 80 fL (82-100); MONOCYTES # (AUTO) 0.5 /CMM (0.1-1.30); MONOCYTES % (AUTO) 6.1 % (2.0-12.0); NEUTROPHILS # (AUTO) 4.5 /CMM (1.8-8.9); NEUTROPHILS % (AUTO) 54.9 % (43.0-81.0); PLATELET COUNT (AUTO) 244 /CMM (150-450); RDW COEFFICIENT OF VARIATION 20.1 (11.5-15.0); RED BLOOD CELL COUNT(AUTO) 2.93 MIL/uL (4.0-5.2); WHITE BLOOD COUNT (AUTO) 8.2 K/uL (4.3-11.0)
[2017-02-10] MEDS ORDERED: hydrALAZINE HCL 50 MG TABLET PO ONE (05:00)
[2017-02-10 05:09] LABS: CHOLESTEROL 152 mg/dL (<200); EOSINOPHILS % (AUTO) 25.5 % (0.0-6.0); HDL CHOLESTEROL 51 mg/dL (40-60); LDL 64 mg/dL (0-99); TRIGLYCERIDES 114 mg/dL (30-150)
[2017-02-10 05:25] LABS: EOSINOPHILS % (MANUAL) 26 % (0-4); LYMPHOCYTES % (MANUAL) 9 % (16-48); MONOCYTES % (MANUAL) 4 % (0-11.0); NEUTROPHILS % (MANUAL) 61 (42-76)
[2017-02-10 05:26] LABS: ALANINE AMINOTRANSFERASE 12 U/L (12-78); ALBUMIN 2.5 g/dL (3.4-5.0); ALKALINE PHOSPHATASE 59 U/L (46-116); ASPARTATE AMINOTRANSFERASE 16 U/L (15-37); BILIRUBIN,TOTAL 0.4 mg/dL (0.2-1.0); CALCIUM, SERUM 8.1 mg/dL (8.5-10.1); CARBON DIOXIDE 28 mmol/L (21-32); CHLORIDE 111 mmol/L (98-107); CREATININE 1.6 mg/dL (0.6-1.3); GLUCOSE 90 mg/dL (74-106); MAGNESIUM 2.1 mg/dL (1.8-2.4); PHOSPHORUS 4.3 mg/dL (2.5-4.9); POTASSIUM 3.7 mmol/L (3.5-5.1); SODIUM SERUM 145 mmol/L (136-145); TOTAL PROTEIN, SERUM 6.6 g/dL (6.4-8.2); UREA NITROGEN, BLOOD 21 mg/dL (7-18)
--- NOTE | 2017-02-10 06:06 | NUR ---
RN NOTES BP RECHECKED, TRENDING DOWN, BUT CURRENTLY 174/90. DR LILIANA ARREOLA MADE AWARE, NO NEW ORDERS RECEIVED. PER DR FORD, "GIVE IT SOME MORE TIME"
--- NOTE | 2017-02-10 07:00 | NUR ---
RN NOTES PATIENT ENDORSED TO THE AM SHIFT NURSE FOR ARIAN.
[2017-02-10 08:00] VITALS: BP 170/81
[2017-02-10] MEDS: ASPIRIN EC 81 MG TABLET.DR PO SCH (08:44)
[2017-02-10] MEDS: CARISOPRODOL 350 MG TABLET PO SCH ×3 (08:45→17:29)
[2017-02-10] MEDS: ISOSORBIDE DINITRATE (20MG) 20 MG TABLET PO SCH ×2 (08:46→17:29)
[2017-02-10] MEDS: CARVEDILOL 12.5 MG TABLET PO SCH ×2 (08:46→21:01)
[2017-02-10] MEDS: PANTOPRAZOLE 40 MG TABLET.DR PO SCH (08:57)
[2017-02-10] MEDS ORDERED: hydrALAZINE HCL 50 MG TABLET PO SCH (09:00)
[2017-02-10] MEDS ORDERED: NIFEdipine XL 60 MG TAB PO SCH (09:00)
[2017-02-10] MEDS: CLONIDINE HCL 0.1 MG TABLET PO SCH (10:17)
[2017-02-10 12:00] VITALS: BP 123/62
--- NOTE | 2017-02-10 18:09 | NUR ---
RN MS PATIENT IS MORE ALERT EDEMA OF THE LOWER EXTREMITIES SUBSIDED , ELEVATED LOWER EXTREMITIES WITH ONE PILLOW ABLE TO CONSUME HER SHARE OF MEAL WITH FAIR APPETITE BLOOD PRESSURE WNL, MONITORED CLOSELY SEGAL CATHETER DRAINING TO YELLOWISH URINE MODERATE IN AMOUNT ENDORSED TO NOD
--- NOTE | 2017-02-10 19:30 | NUR ---
RN OPENING NOTES RECEIVED REPORT FROM MEENA COBOS. PATIENT A/A/O X4, ABLE TO MAKE NEEDS KNOWN. ON O2 2LPM VIA NC. NO RESPIRATORY DISTRESS NOTED, BREATHING EVEN AND UNLABORED. DENIES ANY PAIN OR DISCOMFORT. SEGAL CATH INTACT AND DRAINING YELLOW URINE. BOWEL SOUNDS PRESENT IN ALL QUADRANTS. RUE IV SITE #18 AND LEFT THUMB IV SITE INTACT AND PATENT. SIDE RAILS UP, BED LOCKED AND IN LOWEST POSITION, CALL LIGHT WITHIN REACH. WILL CONTINUE TO MONITOR.
[2017-02-10 20:00] VITALS: BP 120/54
[2017-02-10] MEDS: ATORVASTATIN 10 MG TABLET PO SCH (21:00)
[2017-02-10] MEDS: DOXAZOSIN MESYLATE (1 MG) 1 MG TABLET PO SCH (21:00)
[2017-02-10] MEDS: ENOXAPARIN SODIUM 30 MG/0.3 ML DISP.SYRIN SQ SCH (21:01)
[2017-02-10] MEDS: ZOLPIDEM TARTRATE 5 MG TABLET PO PRN (23:44)
[2017-02-11 04:00] VITALS: BP 120/87
[2017-02-11 07:00] LABS: ALANINE AMINOTRANSFERASE 11 U/L (12-78); ALBUMIN 2.3 g/dL (3.4-5.0); ALKALINE PHOSPHATASE 46 U/L (46-116); ASPARTATE AMINOTRANSFERASE 16 U/L (15-37); BILIRUBIN,TOTAL 0.2 mg/dL (0.2-1.0); CALCIUM, SERUM 7.9 mg/dL (8.5-10.1); CARBON DIOXIDE 29 mmol/L (21-32); CHLORIDE 111 mmol/L (98-107); CREATININE 2.3 mg/dL (0.6-1.3); GLUCOSE 114 mg/dL (74-106); PHOSPHORUS 4.5 mg/dL (2.5-4.9); SODIUM SERUM 145 mmol/L (136-145); TOTAL PROTEIN, SERUM 6.2 g/dL (6.4-8.2); UREA NITROGEN, BLOOD 26 mg/dL (7-18)
--- NOTE | 2017-02-11 07:00 | NUR ---
RN CLOSING NOTES: PATIENT RESTING IN BED. BREATHING EVEN AND UNLABORED, NO RESPIRATORY DISTRESS NOTED. BP STABLE THROUGHOUT SHIFT. SEGAL CATH INTACT AND DRAINING. RIGHT UPPER IV SITE AND LEFT THUMB IV SITE INTACT. NO SIGNIFICANT CHANGES DURING SHIFT. ALL NEEDS MET @ THIS TIME. WILL ENDORSE CONTINUITY OF CARE TO AM SHIFT.
[2017-02-11 07:08] LABS: BASOPHILS % (AUTO) 0.1 % (0.0-2.0); EOSINOPHILS # (AUTO) 1.8 /CMM (0.0-0.7); HEMATOCRIT 23 % (33-45); HEMOGLOBIN 7.4 g/dL (11.5-14.8); LYMPHOCYTES # (AUTO) 1.1 /CMM (0.8-4.8); LYMPHOCYTES % (AUTO) 15.1 % (20.0-44.0); MEAN CORPUSCULAR HEMOGLOBIN 26 PG (26.0-33.0); MEAN CORPUSCULAR HGB CONC 32 g/dl (31.0-36.0); MEAN CORPUSCULAR VOLUME 81 fL (82-100); MONOCYTES # (AUTO) 0.3 /CMM (0.1-1.30); NEUTROPHILS % (AUTO) 55.5 % (43.0-81.0); PLATELET COUNT (AUTO) 203 /CMM (150-450); RDW COEFFICIENT OF VARIATION 20.7 (11.5-15.0); RED BLOOD CELL COUNT(AUTO) 2.84 MIL/uL (4.0-5.2); WHITE BLOOD COUNT (AUTO) 7.2 K/uL (4.3-11.0)
[2017-02-11 07:09] LABS: EOSINOPHILS % (AUTO) 25.3 % (0.0-6.0)
[2017-02-11] MEDS: PANTOPRAZOLE 40 MG TABLET.DR PO SCH (07:30)
[2017-02-11 08:00] VITALS: BP_SYST 134; BP_SYST 139; BP_DIAS 66; BP_DIAS 84
--- NOTE | 2017-02-11 08:00 | NUR ---
MS RN INITIAL NOTES PATIENT SLEEPING COMFORTABLY KARENA BED, ABLE TO MAKE NEEDS KNOWN. ON O2 2LPM VIA NC. NO RESPIRATORY DISTRESS NOTED, BREATHING EVEN AND UNLABORED. DENIES ANY PAIN OR DISCOMFORT. SEGAL CATH INTACT AND DRAINING YELLOW URINE. BOWEL SOUNDS PRESENT IN ALL QUADRANTS. RUE IV SITE #18 AND LEFT THUMB IV SITE INTACT AND PATENT. SIDE RAILS UP, BED LOCKED AND IN LOWEST POSITION, CALL LIGHT WITHIN REACH. WILL CONTINUE TO MONITOR.
[2017-02-11] MEDS: ASPIRIN EC 81 MG TABLET.DR PO SCH (09:22)
[2017-02-11] MEDS: ISOSORBIDE DINITRATE (20MG) 20 MG TABLET PO SCH ×2 (09:23→17:00)
[2017-02-11] MEDS: CLONIDINE HCL 0.1 MG TABLET PO SCH (09:23)
[2017-02-11] MEDS: CARISOPRODOL 350 MG TABLET PO SCH ×3 (09:23→17:55)
[2017-02-11] MEDS: CARVEDILOL 12.5 MG TABLET PO SCH ×2 (09:24→21:28)
[2017-02-11] MEDS: NIFEdipine XL (30MG) 30 MG TAB PO SCH (09:24)
[2017-02-11] MEDS: hydrALAZINE HCL 50 MG TABLET PO SCH ×3 (09:25→17:00)
[2017-02-11 09:58] LABS: BAND % (MANUAL) 1 % (0.0-5.0); EOSINOPHILS % (MANUAL) 16 % (0-4); LYMPHOCYTES % (MANUAL) 5 % (16-48); NEUTROPHILS % (MANUAL) 78 (42-76)
[2017-02-11] MEDS ORDERED: BUMETANIDE INJ 0.25 MG/ML VIAL IV ONE (15:30)
[2017-02-11 16:00] VITALS: BP 117/60
--- NOTE | 2017-02-11 19:30 | NUR ---
RN OPENING NOTES RECEIVED REPORT FROM LINDA COBOS. PATIENT A/A/O X4, ABLE TO MAKE NEEDS KNOWN. BREATHING EVEN AND UNLABORED, ON O2 2LPM VIA NC. DENIES CHEST PAIN OR SOB. SEGAL CATH INTACT AND DRAINING YELLOW URINE. AMBULATES W/WALKER W/ BRP. RIGHT UPPER IV SITE #18 AND LEFT THUMB IV SITE #22 INTACT AND PATENT, SALINE FLUSHED. SIDE RAILS UP, BED LOCKED AND IN LOWEST POSITION, CALL LIGHT WITHIN REACH. WILL CONTINUE TO MONITOR.
--- NOTE | 2017-02-11 19:51 | NUR ---
MS RN CLOSING NOTES: PATIENT RESTING IN BED. BREATHING EVEN AND UNLABORED, NO RESPIRATORY DISTRESS NOTED. BP STABLE THROUGHOUT SHIFT. SEGAL CATH INTACT AND DRAINING. RIGHT UPPER IV SITE AND LEFT THUMB IV SITE INTACT. NO SIGNIFICANT CHANGES DURING SHIFT. ALL NEEDS MET @ THIS TIME. WILL ENDORSE CONTINUITY OF CARE TO PM SHIFT.
[2017-02-11 20:00] VITALS: BP_SYST 123; BP_SYST 126; BP_DIAS 53; BP_DIAS 67
[2017-02-11] MEDS: ENOXAPARIN SODIUM 30 MG/0.3 ML DISP.SYRIN SQ SCH (21:27)
[2017-02-11] MEDS: DOXAZOSIN MESYLATE (1 MG) 1 MG TABLET PO SCH (21:27)
[2017-02-11] MEDS: ATORVASTATIN 10 MG TABLET PO SCH (21:28)
[2017-02-11] MEDS: ZOLPIDEM TARTRATE 5 MG TABLET PO PRN (23:19)
[2017-02-12 04:00] VITALS: BP 151/73
--- NOTE | 2017-02-12 07:03 | NUR ---
RN CLOSING NOTES: PATIENT AWAKE AND RESTING IN BED. NO C/O RESPIRATORY DISTRESS OR SOB. ON O2 2LPM VIA NC, TOLERATED WELL. DENIES ANY PAIN OR DISCOMFORT. RUE IV SITE AND LEFT THUMB IV SITE INTACT AND PATENT. SEGAL INTACT AND DRAINING YELLOW URINE. NO COMPLICATIONS NOTED. ALL NEEDS MET @ THIS TIME. WILL ENDORSE ARIAN TO AM NURSE.
[2017-02-12 07:17] LABS: BASOPHILS % (AUTO) 0.2 % (0.0-2.0); EOSINOPHILS # (AUTO) 1.9 /CMM (0.0-0.7); EOSINOPHILS % (AUTO) 19.7 % (0.0-6.0); HEMATOCRIT 24 % (33-45); HEMOGLOBIN 7.7 g/dL (11.5-14.8); LYMPHOCYTES # (AUTO) 0.8 /CMM (0.8-4.8); MEAN CORPUSCULAR HEMOGLOBIN 26 PG (26.0-33.0); MEAN CORPUSCULAR HGB CONC 33 g/dl (31.0-36.0); MEAN CORPUSCULAR VOLUME 81 fL (82-100); MONOCYTES # (AUTO) 0.5 /CMM (0.1-1.30); NEUTROPHILS # (AUTO) 6.3 /CMM (1.8-8.9); NEUTROPHILS % (AUTO) 67.1 % (43.0-81.0); PLATELET COUNT (AUTO) 223 /CMM (150-450); RDW COEFFICIENT OF VARIATION 20.6 (11.5-15.0); RED BLOOD CELL COUNT(AUTO) 2.91 MIL/uL (4.0-5.2); WHITE BLOOD COUNT (AUTO) 9.5 K/uL (4.3-11.0)
[2017-02-12 07:24] LABS: ALANINE AMINOTRANSFERASE 11 U/L (12-78); ALBUMIN 2.6 g/dL (3.4-5.0); ALKALINE PHOSPHATASE 48 U/L (46-116); ASPARTATE AMINOTRANSFERASE 12 U/L (15-37); BILIRUBIN,TOTAL 0.3 mg/dL (0.2-1.0); CALCIUM, SERUM 8.3 mg/dL (8.5-10.1); CARBON DIOXIDE 26 mmol/L (21-32); CHLORIDE 109 mmol/L (98-107); CREATININE 2.2 mg/dL (0.6-1.3); GLUCOSE 136 mg/dL (74-106); MAGNESIUM 2.1 mg/dL (1.8-2.4); PHOSPHORUS 4.8 mg/dL (2.5-4.9); POTASSIUM 4.1 mmol/L (3.5-5.1); SODIUM SERUM 143 mmol/L (136-145); TOTAL PROTEIN, SERUM 6.8 g/dL (6.4-8.2); UREA NITROGEN, BLOOD 27 mg/dL (7-18)
[2017-02-12 08:00] VITALS: BP 170/74
--- NOTE | 2017-02-12 08:00 | NUR ---
MS RN INITIAL NOTES PATIENT SLEEPING COMFORTABLY KARENA BED, ABLE TO MAKE NEEDS KNOWN. ON O2 2LPM VIA NC. NO RESPIRATORY DISTRESS NOTED, BREATHING EVEN AND UNLABORED. DENIES ANY PAIN OR DISCOMFORT. SEGAL CATH INTACT AND DRAINING YELLOW URINE. BOWEL SOUNDS PRESENT IN ALL QUADRANTS. RUE IV SITE #18 AND LEFT THUMB #22 IV SITE INTACT AND PATENT. SIDE RAILS UP, BED LOCKED AND IN LOWEST POSITION, CALL LIGHT WITHIN REACH. WILL CONTINUE TO MONITOR.
[2017-02-12 08:46] LABS: BAND % (MANUAL) 1 % (0.0-5.0); EOSINOPHILS % (MANUAL) 19 % (0-4); LYMPHOCYTES % (MANUAL) 6 % (16-48); MONOCYTES % (MANUAL) 3 % (0-11.0); NEUTROPHILS % (MANUAL) 71 (42-76)
[2017-02-12] MEDS: NIFEdipine XL (30MG) 30 MG TAB PO SCH (10:11)
[2017-02-12] MEDS: hydrALAZINE HCL 50 MG TABLET PO SCH ×3 (10:12→17:00)
[2017-02-12] MEDS: CARVEDILOL 12.5 MG TABLET PO SCH ×2 (10:12→21:15)
[2017-02-12] MEDS: ASPIRIN EC 81 MG TABLET.DR PO SCH (10:12)
[2017-02-12] MEDS: CARISOPRODOL 350 MG TABLET PO SCH ×3 (10:13→23:03)
[2017-02-12] MEDS: ISOSORBIDE DINITRATE (20MG) 20 MG TABLET PO SCH ×2 (10:13→17:00)
[2017-02-12] MEDS: PANTOPRAZOLE 40 MG TABLET.DR PO SCH (10:13)
[2017-02-12] MEDS: CLONIDINE HCL 0.1 MG TABLET PO SCH (10:13)
[2017-02-12 12:13] LABS: *ANCANTIMYELOPEROXIDASE (MPO) <9.0 U/mL (0.0-9.0); *ANCANTIPROTEINASE 3 (PR-3) AB <3.5 U/mL (0.0-3.5)
[2017-02-12 14:16] LABS: *ANCA CYTOPLASMIC (C-ANCA) <1:20 titer (Neg:<1:20); *ANCA PERINUCLEAR (P-ANCA) <1:20 titer (Neg:<1:20)
[2017-02-12 15:35] LABS: IRON, SERUM 20 ug/dl (50-175); TOTAL IRON BINDING CAPACITY 249 ug/dl (250-450)
[2017-02-12 15:49] LABS: FERRITIN 32 ng/mL (8-388)
[2017-02-12 16:00] VITALS: BP 145/82
--- NOTE | 2017-02-12 19:30 | NUR ---
MS RN INITIAL NOTES RECEIVED PATIENT AWAKE A/OX3, ABLE TO MAKE NEEDS KNOWN. RESPIRATIONS EVEN AND UNLABORED, ON 2LPMO2 VIA NC. DENIES SOB AT THIS TIME, STATES SHE'S ONLY SOB ON EXERTION. DENIES PAIN OR DISCOMFORT. PER REPORT PATIENT WOULD LIKE 1700 SOMA AT A MUCH LATER TIME. CONFIRMED WITH PATIENT, PATIENT STATED SHE DOES NOT WANT TO BE ASLEEP DURING THE DAY, AND WOULD PREFER IT AT BEDTIME. F/C IN PLACE, PATENT AND INTACT, FLOWING BY GRAVITY, CLEAR, YELLOW URINE. SKIN WARM AND DRY TO TOUCH. HOB ELEVATED. SIDE RAILS UP AND LOCKED. BED KEPT AT LOWEST POSITION. CALL LIGHT KEPT WITHIN EASY REACH. WILL CONTINUE TO MONITOR.
--- NOTE | 2017-02-12 19:44 | NUR ---
RN NOTE PER PATIENT REQUEST SEAGL CATH IS STILL IN PLACE, PENDING D/C ORDERS MD MTZ NOTIFIED IN REGARDS TO PATIENTS WISHES . ALSO DURING PM MEDICATION ADMINISTRATION PATIENT REQUEST THAT SOMA BE GIVEN AT A LATER TIME DUE TO IT CAUSING HER SLIGHT DROWSINESS THROUGHOUT THE DAY. PATIENT NEEDS ACKNOWLEDGED DAYSHIFT RN WILL ENDORSE CARE TO PM RN REGARDING MEDICATION ADMINISTRATION
[2017-02-12 20:00] VITALS: BP 132/70
[2017-02-12] MEDS: ATORVASTATIN 10 MG TABLET PO SCH (21:14)
[2017-02-12] MEDS: DOXAZOSIN MESYLATE (1 MG) 1 MG TABLET PO SCH (21:15)
[2017-02-12] MEDS: ENOXAPARIN SODIUM 30 MG/0.3 ML DISP.SYRIN SQ SCH (21:16)
[2017-02-13 04:00] VITALS: BP 152/69
[2017-02-13 06:32] LABS: APPEARANCE,URINE CLOUDY (CLEAR); BILIRUBIN,URINE NEGATIVE (NEGATIVE); BLOOD, URINE 1+ Ery/uL (NEGATIVE); COLOR,URINE YELLOW (YELLOW); KETONES,URINE NEGATIVE (NEGATIVE); LEUKOCYTE ESTERASE ,URINE 2+ (NEGATIVE); NITRITE, URINE POSITIVE (NEGATIVE); PH,URINE 5.5 (5.0-8.0); PROTEIN,URINE 3+ mg/dl (NEGATIVE); UGLUCOSE NEGATIVE (NEGATIVE); UROBILINOGEN,URINE 0.2 EU/dL (0.2)
[2017-02-13 06:44] LABS: CREATININE, URINE 101.7 MG/DL (30.0-125.0); URINE TOTAL PROTEIN 463.5 mg/dL (0-11.9)
[2017-02-13 07:10] LABS: COMPLEMENT C3, SERUM 132 mg/dL (82-167)
--- NOTE | 2017-02-13 07:29 | NUR ---
MS RN CLOSING NOTES NO SIGNIFICANT CHANGES OVERNIGHT. DENIES SOB AT REST. SKIN WARM AND DRY TO TOUCH. ALL NEEDS ANTICIPATED AND MET. ALL DUE MEDS GIVEN. HOB KEPT ELEVATED. SIDE RAILS UP AND LOCKED. BED KEPT AT LOWEST POSITION. CALL LIGHT KEPT WITHIN EASY REACH. CONTINUITY OF CARE ENDORSED TO AM NURSE.
[2017-02-13 07:47] LABS: EOSINOPHIL,URINE None Seen
--- NOTE | 2017-02-13 07:52 | NUR ---
MS RN NOTE PATIENT IN BED , ALL NEEDS ATTENDED ,ON 2L O2 VIA NC , NO SOB NOTED , WITH SEGAL CATH IN PLACE TO GRAVITY , RT UA HL INTACT , NO S]S INFECTION NOTED , WILL AMBULATE PATENT ON RA , BED IN LOWEST AND LOCKED POSITION ,CALL LIGHT WITHIN REACH , WILL CONT TO MONITOR CLOSELY, PLAN OF CARE DISCUSSED WITH PATIENT
[2017-02-13 07:53] LABS: BACTERIA,URINE Moderate /HPF (None Seen); SQUAMOUS EPITHELIAL CELL,UR Few /HPF (None Seen); WBC,URINE 51-80 /HPF (0-3)
[2017-02-13 08:00] VITALS: BP 163/73
[2017-02-13] MEDS: PANTOPRAZOLE 40 MG TABLET.DR PO SCH (08:48)
[2017-02-13] MEDS: ASPIRIN EC 81 MG TABLET.DR PO SCH (08:50)
[2017-02-13] MEDS: CARISOPRODOL 350 MG TABLET PO SCH ×3 (08:52→17:00)
[2017-02-13] MEDS: CARVEDILOL 12.5 MG TABLET PO SCH (08:52)
[2017-02-13] MEDS: ISOSORBIDE DINITRATE (20MG) 20 MG TABLET PO SCH ×2 (08:54→17:13)
[2017-02-13 09:23] LABS: *ANCA ATYPICAL p-ANCA <1:20 titer (Neg:<1:20); COMPLEMENT C4, SERUM 31 mg/dL (14-44)
--- NOTE | 2017-02-13 09:26 | NUR ---
MS RN NOTE D\IONA SEGAL PER DR AUGUST NOTES, AND AMBULATE WITH CANE NEEDS MOD ASSISTANCE, STILL HAS SOB ON EXERTION , SAT 85-86% ON RA WHEN WALKING
--- NOTE | 2017-02-13 09:51 | NUR ---
MS RN NOTE CHEST X RAY DONE ORDERED
[2017-02-13] MEDS: NIFEdipine XL (30MG) 30 MG TAB PO SCH (10:07)
[2017-02-13] MEDS: hydrALAZINE HCL 50 MG TABLET PO SCH ×3 (10:18→17:13)
--- NOTE | 2017-02-13 10:42 | NUR ---
MS RN NOTE SPOKE WITH WELDING SETTER FRANCOIS NOTIFIED ABOUT PLACEMENTS TO SNF WITH PT AND O2 NEEDED FOR PATENT, STILL HAS SOB WHEN WALKING ,SAT ON RA 85%-86
[2017-02-13] MEDS: CLONIDINE HCL 0.1 MG TABLET PO SCH (11:39)
--- NOTE | 2017-02-13 13:25 | NUR ---
MS RN NOTE SPOKE WITH DR MTZ, NOTIFIED CHEST X RAY RESULT STATED ITS THE SAME BEFORE OK TO S DISCHARGE TO SNF
--- NOTE | 2017-02-13 14:30 | NUR ---
SAMPLE HAND NOTE PT AT BEDSIDE EVAL DONE ,WILL CONT TO MONITOR FOR VOIDING
--- NOTE | 2017-02-13 15:00 | NUR ---
MS RN NOTE DISCHARGE INSTRUCTION GIVEN ABOUT CHF, VERBALIZE UNDERSTAND, INSTRUCTED HOW TO TAKE MEDS AND POSSIBLE SIDE EFFECTS ,ALSO DIET AND SMOKING INSTRUCTION GIVEN, INSTRUCTED TO FOLLOW UP WITH COMPRESSOR ASSEMBLER WITH DR AUGUST ,PATIENT IS GOING TO ACUTE REHAB FOR NOW , PATIENT STATED THAT HAVE ALREADY APPOINTMENT WITH PRIMARY CARE DOCTOR ,BELONGING SIGNED FAMILY AT BEDSIDE ,
--- NOTE | 2017-02-13 15:30 | NUR ---
MS RN NOTE CALLED TO SNF , SPOKE WITH KASIE COBOS ,REPORT GIVEN
--- NOTE | 2017-02-13 15:32 | NUR ---
MS RN NOTE ASSISTED TO BEDSIDE COMMODE ,ABLE TO URINATE 120 ML OF YELLOW COLOR URINE , KEEP CLEAN DRY
[2017-02-13 16:00] VITALS: BP 120/54
--- NOTE | 2017-02-13 16:00 | NUR ---
MS RN NOTE CALLED TO DR MORRISSEY FOR MED RECON , PATIENT WILL BE TRANSFER TO SNF
[2017-02-13 17:13] VITALS: BP 120/54
--- NOTE | 2017-02-13 17:44 | NUR ---
MS RN NOTE DR MTZ CALLED BACK FOR MED RECON
--- NOTE | 2017-02-13 19:07 | NUR ---
MS RN NOTE AMBULANCE ARRIVED, REPORT GIVEN , HL REMOVED , BELONGING GIVEN , PATIENT SIGNED , WENT TO [facility] WITH STABLE CONDITION
== END 2017-02-13 19:00 | DRG 291 ==
LOC: ER 18:24 → TELE-TD 20:24 → TELE1 02-10 00:35 → MEDSG1 02-10 11:35
PROVIDERS: ADMIT Nurse Practitioner Acute Care; ATTEND Nurse Practitioner Acute Care
DX: I13.0 Hypertensive heart and chronic kidney disease with heart failure and stage 1 through stage 4 chronic kidney disease, or unspecified chronic kidney disease (principal); I50.33 Acute on chronic diastolic (congestive) heart failure; N17.0 Acute kidney failure with tubular necrosis; K21.9 Gastro-esophageal reflux disease without esophagitis; E11.22 Type 2 diabetes mellitus with diabetic chronic kidney disease; D72.1 Eosinophilia; E78.5 Hyperlipidemia, unspecified; D63.8 Anemia in other chronic diseases classified elsewhere; G89.4 Chronic pain syndrome; I25.10 Atherosclerotic heart disease of native coronary artery without angina pectoris; I25.2 Old myocardial infarction; N18.3 Chronic kidney disease, stage 3 (moderate); Z90.5 Acquired absence of kidney; Z88.0 Allergy status to penicillin; Z88.2 Allergy status to sulfonamides; F99 Mental disorder, not otherwise specified; Z82.49 Family history of ischemic heart disease and other diseases of the circulatory system
CPT/HCPCS: 36415; 71010-TC; 80048-TC; 80053-TC; 80061-TC; 80076-TC; 81000-TC; 82570-TC; 82728-TC; 83520; 83540-TC; 83735-TC; 83880; 84100-TC; 84155-TC; 84300-TC; 84484-TC; 85025-TC; 85652-TC; 85730-TC; 86256; 87081-TC; 87086-TC; 87186-TC; 97001-TC; A4216; A4606; J1650; J1940; J3490; J7030; Z7610

== ENCOUNTER 2017-03-24 14:13 | Inpatient (IN) | payer MEDICARE, OTHER ==
[~2017-03-24] VITALS: Ht 165.1 cm; Wt 89.4 kg
[~2017-03-24 14:13] MED LIST changes: -ALBU6.7H INH; +CARI350T PO; +CLON0.3T PO; -CLON1PAT2 TD; +DOXA1TAB PO; -DOXA1TAB17 PO; -FERR-58 PO; -Hydralazine Hcl PO; +ISOS20TA8 PO; -Isosorbide Dinitrate PO; +LORA1TAB82 PO; +NIFE30TA91 PO; -Nifedipine PO; +ZOLP10TA6 PO
--- NOTE | 2017-03-24 14:13 | NUR ---
C/O MIDSTERNAL CHEST PAIN, NON RADIATING X 7-8 HRS. NAD NOTED. PT AAO X4, VSS, PLACED IN GOWN AND MONITOR. DENIES SOB. DR ANAND AT BEDSIDE FOR EVAL.
--- NOTE | 2017-03-24 14:35 | NUR ---
Roque willingham in ED - 03/24/17 at 1457 by FLACO SMOKING TOBACCO CUTTER OPERATOR MEHRAN FOR PLACEMENT OF MIDLINE OK'D BY DR ANAND
--- NOTE | 2017-03-24 14:57 | NUR ---
TEASEL SETTER PAGED FOR PLACEMENT OF MIDLINE OK'D BY DR ANAND
--- NOTE | 2017-03-24 16:13 | NUR ---
R HAND IV PLACED BY BRIDGET COBOS. PATENT AND FLUSHING WELL.
--- NOTE | 2017-03-24 16:19 | NUR ---
PATIENT WILL BE ADMITTED INTO ROOM 312-1.
[2017-03-24 16:33] LABS: BASOPHILS % (AUTO) 0.1 % (0.0-2.0); EOSINOPHILS # (AUTO) 0.6 /CMM (0.0-0.7); EOSINOPHILS % (AUTO) 7.5 % (0.0-6.0); HEMATOCRIT 28 % (33-45); LYMPHOCYTES # (AUTO) 0.9 /CMM (0.8-4.8); LYMPHOCYTES % (AUTO) 11.6 % (20.0-44.0); MEAN CORPUSCULAR HEMOGLOBIN 27 PG (26.0-33.0); MEAN CORPUSCULAR HGB CONC 33 g/dl (31.0-36.0); MEAN CORPUSCULAR VOLUME 81 fL (82-100); MONOCYTES # (AUTO) 0.6 /CMM (0.1-1.30); MONOCYTES % (AUTO) 7.7 % (2.0-12.0); NEUTROPHILS # (AUTO) 5.3 /CMM (1.8-8.9); NEUTROPHILS % (AUTO) 73.1 % (43.0-81.0); PLATELET COUNT (AUTO) 230 /CMM (150-450); RED BLOOD CELL COUNT(AUTO) 3.38 MIL/uL (4.0-5.2); WHITE BLOOD COUNT (AUTO) 7.4 K/uL (4.3-11.0)
[2017-03-24 16:50] LABS: INR 1.02 (0.87-1.13); PROTHROMBIN TIME 10.6 SECS (9.5-12.7)
[2017-03-24 16:52] LABS: ALANINE AMINOTRANSFERASE 11 U/L (12-78); ALBUMIN 2.4 g/dL (3.4-5.0); ALKALINE PHOSPHATASE 42 U/L (46-116); ASPARTATE AMINOTRANSFERASE 16 U/L (15-37); BILIRUBIN,DIRECT 0.1 mg/dL (0.0-0.2); BILIRUBIN,TOTAL 0.5 mg/dL (0.2-1.0); CALCIUM, SERUM 8.1 mg/dL (8.5-10.1); CARBON DIOXIDE 26 mmol/L (21-32); CHLORIDE 110 mmol/L (98-107); CREATININE 1.9 mg/dL (0.6-1.3); GLUCOSE 92 mg/dL (74-106); POTASSIUM 3.7 mmol/L (3.5-5.1); SODIUM SERUM 143 mmol/L (136-145); TOTAL PROTEIN, SERUM 6.4 g/dL (6.4-8.2); UREA NITROGEN, BLOOD 31 mg/dL (7-18)
[2017-03-24 16:54] LABS: TROPONIN I < 0.017 ng/mL (0.00-0.056)
--- NOTE | 2017-03-24 17:03 | NUR ---
REPORT GIVEN TO GERI COBOS FOR ARIAN
--- NOTE | 2017-03-24 17:13 | NUR ---
CALLED [employer], DIE ENGRAVING SUPERVISOR WAS PAGED.
[2017-03-24] MEDS ORDERED: ASPIRIN 325 MG TABLET ONE (17:19)
[2017-03-24] MEDS ORDERED: NITROGLYCERIN PACKET 1 GM PACKET ONE (17:20)
[2017-03-24] MEDS ORDERED: NITROGLYCERIN PACKET 1 GM PACKET TD ONE (17:30)
[2017-03-24] MEDS ORDERED: ASPIRIN 325 MG TABLET PO ONE (17:30)
--- NOTE | 2017-03-24 17:54 | NUR ---
PT ADMITTED IN STABLE CONDITION, NO SOB OR DISTRESS, NO CHEST PAIN NOTED, PT TRANSFERRED TO BED SAFELY, ORIENTED TO ROOM AND CALL LIGHT, WILL PLACE TELE BOX AND MONITOR.
--- NOTE | 2017-03-24 18:04 | NUR ---
TELE BOX APPLIED, DR ROGEL INFORMED ABOUT ADMISSION.
[2017-03-24 18:15] VITALS: BP 152/72
--- NOTE | 2017-03-24 18:39 | NUR ---
GAVE REPORT TO STRAP FOLDING MACHINE OPERATOR NINO CHEST PAIN DR ROGEL ACLS TRANSPORT
--- NOTE | 2017-03-24 18:48 | NUR ---
PT IN STABLE CONDITION, NO CHEST PAIN OR SOB NOTED, WILL INDORSE TO NEXT SHIFT FOR ARIAN.
[2017-03-24 20:00] VITALS: BP 160/100
--- NOTE | 2017-03-24 20:00 | NUR ---
UPON CHIEF ACCOUNTING OFFICER CHECKING PT'S VITALS, BP IS 160/100, MD MADE AWARE, RECEIVED ORDER FOR FOR BP MEDICATION, WILL ADMINISTER AND CONTINUE TO MONITOR CLOSELY.
[2017-03-24] MEDS ORDERED: IV NS 0.9% 1,000 ML IV PRN (20:07)
[2017-03-24] MEDS ORDERED: HYDROCODONE/APAP 5/325MG 1 EACH TABLET PO PRN (20:30)
[2017-03-24] MEDS ORDERED: ACETAMINOPHEN 325 MG TABLET PO PRN (20:30)
[2017-03-24] MEDS ORDERED: DEXTROSE 50%-WATER 50 ML DISP.SYRIN IV PRN (20:30)
[2017-03-24] MEDS ORDERED: MAG HYDROX/AL HYDROX/SIMETH 30 ML UDC PO PRN (20:30)
[2017-03-24] MEDS ORDERED: Z GUARD REMEDY 2 OZ OINT TP PRN (20:30)
[2017-03-24] MEDS ORDERED: ONDANSETRON HCL/PF 4 MG/2 ML VIAL IVP PRN (20:30)
[2017-03-24] MEDS ORDERED: ZOLPIDEM TARTRATE 5 MG TABLET PO PRN (20:30)
[2017-03-24] MEDS ORDERED: MAGNESIUM HYDROXIDE 30 ML UDC PO PRN (20:30)
[2017-03-24 20:36] LABS: AMYLASE 53 U/L (25-115); LIPASE 67 U/L (73-393)
--- NOTE | 2017-03-24 20:48 | NUR ---
SPOKE TO MANAGER MOTOR LIU RUFFIN REGARDING ORDER FOR NORCO, TYLENOL AND MORPHINE, INFORMED HIM OF PT'S ALLERGY TO ACETAMINOPHEN, HE ORDER TO D/C NORCO AND TYLENOL BUT TO CONTINUE MORPHINE ORDER FOR PAIN.
[2017-03-24] MEDS ORDERED: LORAZEPAM 1 MG TABLET PO PRN (21:00)
[2017-03-24] MEDS: CARVEDILOL 12.5 MG TABLET PO SCH (21:11)
[2017-03-24] MEDS: BLOOD SUGAR DIAGNOSTIC 1 EACH STRIP IN SCH (21:11)
[2017-03-24] MEDS: DOXAZOSIN MESYLATE (1 MG) 1 MG TABLET PO SCH (21:12)
[2017-03-24] MEDS: ATORVASTATIN 10 MG TABLET PO SCH (21:12)
--- NOTE | 2017-03-24 21:38 | NUR ---
TELEPHONE SERVICES SALES REPRESENTATIVE INITIAL NOTE RECEIVED PT AWAKE AND ALERT, ORIENTED X3, NO COMPLAINT OF CHEST PAIN, NO RESPIRATORY DISTRESS NOTED, PT IS COOPERATIVE WITH CARE, SHE IS CLEAN/DRY AND COMFORTABLE, NEEDS WILL BE ANTICIPATED AND ATTENDED TO PROMPTLY.
[2017-03-24] MEDS: ZOLPIDEM TARTRATE 10 MG TABLET PO PRN (23:45)
[2017-03-25] VITALS: BP 160/100
[2017-03-25] MEDS ORDERED: CLONIDINE HCL 0.1 MG TABLET PO PRN (05:00)
--- NOTE | 2017-03-25 06:05 | NUR ---
BULLDOZER ENGINEER CLOSING NOTE PT REMAINED STABLE DURING JOB FORWARDER, NO CHANGE IN CONDITION NOTED, WILL ENDORSE TO AM NURSE FOR ARIAN.
[2017-03-25] MEDS: BLOOD SUGAR DIAGNOSTIC 1 EACH STRIP IN SCH ×4 (06:35→21:46)
[2017-03-25 07:21] LABS: BASOPHILS % (AUTO) 0.1 % (0.0-2.0); EOSINOPHILS # (AUTO) 1.1 /CMM (0.0-0.7); EOSINOPHILS % (AUTO) 15.5 % (0.0-6.0); HEMATOCRIT 25 % (33-45); HEMOGLOBIN 7.9 g/dL (11.5-14.8); LYMPHOCYTES # (AUTO) 0.7 /CMM (0.8-4.8); LYMPHOCYTES % (AUTO) 9.2 % (20.0-44.0); MEAN CORPUSCULAR HEMOGLOBIN 26 PG (26.0-33.0); MEAN CORPUSCULAR HGB CONC 32 g/dl (31.0-36.0); MEAN CORPUSCULAR VOLUME 82 fL (82-100); MONOCYTES # (AUTO) 0.4 /CMM (0.1-1.30); MONOCYTES % (AUTO) 6.1 % (2.0-12.0); NEUTROPHILS # (AUTO) 5.1 /CMM (1.8-8.9); NEUTROPHILS % (AUTO) 69.1 % (43.0-81.0); PLATELET COUNT (AUTO) 200 /CMM (150-450); RDW COEFFICIENT OF VARIATION 17.3 (11.5-15.0); RETICULOCYTE COUNT 2.2 % (0.6-2.5); WHITE BLOOD COUNT (AUTO) 7.4 K/uL (4.3-11.0)
[2017-03-25 07:26] LABS: INR 0.99 (0.87-1.13); PROTHROMBIN TIME 10.6 SECS (9.5-12.7)
--- NOTE | 2017-03-25 07:30 | NUR ---
RECEIVED PT. IN AM ,ALERT AND ORIENTEDX4,NO COMPLAINTS OFFERED.
[2017-03-25 07:43] LABS: ALANINE AMINOTRANSFERASE 11 U/L (12-78); ALKALINE PHOSPHATASE 40 U/L (46-116); ASPARTATE AMINOTRANSFERASE 13 U/L (15-37); B-TYPE NATRIURETIC PEPTIDE 8488 PG/ML (0-125); BILIRUBIN,TOTAL 0.4 mg/dL (0.2-1.0); CALCIUM, SERUM 7.8 mg/dL (8.5-10.1); CARBON DIOXIDE 26 mmol/L (21-32); CHLORIDE 113 mmol/L (98-107); CREATININE 1.7 mg/dL (0.6-1.3); GLUCOSE 91 mg/dL (74-106); MAGNESIUM 1.9 mg/dL (1.8-2.4); POTASSIUM 3.7 mmol/L (3.5-5.1); SODIUM SERUM 146 mmol/L (136-145); TOTAL PROTEIN, SERUM 5.5 g/dL (6.4-8.2); UREA NITROGEN, BLOOD 27 mg/dL (7-18)
[2017-03-25 07:47] LABS: CHOLESTEROL 111 mg/dL (<200); HDL CHOLESTEROL 41 mg/dL (40-60); LDL 49 mg/dL (0-99); THYROID STIMULATING HORMONE 1.283 uIU/mL (0.358-3.74); TRIGLYCERIDES 121 mg/dL (30-150)
[2017-03-25 08:00] VITALS: BP 187/79
[2017-03-25] MEDS: ISOSORBIDE DINITRATE (20MG) 20 MG TABLET PO SCH ×2 (08:17→17:40)
[2017-03-25] MEDS: ASPIRIN EC 81 MG TABLET.DR PO SCH (08:18)
[2017-03-25] MEDS: CARVEDILOL 12.5 MG TABLET PO SCH ×2 (08:18→21:03)
[2017-03-25] MEDS: PANTOPRAZOLE 40 MG TABLET.DR PO SCH (08:18)
[2017-03-25] MEDS: hydrALAZINE HCL 50 MG TABLET PO SCH ×3 (08:18→17:41)
[2017-03-25] MEDS: CLONIDINE HCL 0.1 MG TABLET PO SCH (08:19)
[2017-03-25] MEDS: CARISOPRODOL 350 MG TABLET PO SCH ×4 (08:19→17:00)
--- NOTE | 2017-03-25 08:30 | NUR ---
DR. GIPSON,DR. AUGUST IN TO SEE PT.
--- NOTE | 2017-03-25 08:40 | NUR ---
IV HEP LOCKED.
[2017-03-25] MEDS ORDERED: ISOSORBIDE DINITRATE (20MG) 20 MG TABLET PO SCH (09:00)
[2017-03-25] MEDS ORDERED: LOPERAMIDE HCL (2 MG CAP) 2 MG CAPSULE PO PRN (09:00)
[2017-03-25] MEDS ORDERED: MAG HYDROX/AL HYDROX/SIMETH 30 ML UDC PO PRN (09:00)
[2017-03-25] MEDS: FUROSEMIDE 40 MG/4 ML VIAL IV SCH ×3 (09:12→17:40)
--- NOTE | 2017-03-25 14:00 | NUR ---
IN AND OUT CATH DONE AND URINE SENT FOR UA AND URINE CULTURE.PT. TOLERATED WELL.
[2017-03-25 16:00] VITALS: BP 130/66
[2017-03-25 17:27] LABS: APPEARANCE,URINE SL CLOUDY (CLEAR); BILIRUBIN,URINE NEGATIVE (NEGATIVE); BLOOD, URINE NEGATIVE Ery/uL (NEGATIVE); COLOR,URINE YELLOW (YELLOW); KETONES,URINE NEGATIVE (NEGATIVE); LEUKOCYTE ESTERASE ,URINE NEGATIVE (NEGATIVE); NITRITE, URINE NEGATIVE (NEGATIVE); PROTEIN,URINE 3+ mg/dl (NEGATIVE); UGLUCOSE NEGATIVE (NEGATIVE); UROBILINOGEN,URINE 0.2 EU/dL (0.2)
[2017-03-25] MEDS: MORPHINE SULFATE INJ 2 MG/ML DISP.SYRIN IV PRN (17:44)
--- NOTE | 2017-03-25 17:44 | NUR ---
MEDICATED WITH MORPHINE FOR ABD. PAIN.
[2017-03-25 17:53] LABS: BACTERIA,URINE Rare /HPF (None Seen); RBC,URINE 0-2 /HPF (0-2); SQUAMOUS EPITHELIAL CELL,UR Few /HPF (None Seen); URINE AMORPHOUS URATE Few /HPF (None Seen); WBC,URINE 0-2 /HPF (0-3)
--- NOTE | 2017-03-25 18:30 | NUR ---
BP BEING MONITORED CLOSELY AND TAKEN MANUALLY.
[2017-03-25 20:00] VITALS: BP 135/72
--- NOTE | 2017-03-25 20:06 | NUR ---
RN NOTES RECEIVED PATIENT IN BED, ALERT AND ORIENTED X4, CALM, NO SOB, NO RESPIRATORY DISTRESS, SPO2 AT ROOM AIR 94%, DENIES ANY PAIN AT THIS TIME, ABLE TO VERBALIZE NEEDS, RIGHT HAND #20 SALINE LOCK IS PATENT. INCONTINENT OF BOWEL AND BLADDER, NEEDS ATTENDED, CALL LIGHT WITHIN REACH.
[2017-03-25] MEDS: DOXAZOSIN MESYLATE (1 MG) 1 MG TABLET PO SCH (21:46)
[2017-03-25] MEDS: ATORVASTATIN 10 MG TABLET PO SCH (21:47)
[2017-03-25] MEDS: INSULIN REGULAR, HUMAN 100 UNIT/ML 3 ML VIAL SQ PRN (21:51)
[2017-03-25] MEDS: ZOLPIDEM TARTRATE 10 MG TABLET PO PRN (23:46)
[2017-03-26] MEDS: BLOOD SUGAR DIAGNOSTIC 1 EACH STRIP IN SCH ×4 (06:23→22:01)
[2017-03-26] MEDS: INSULIN REGULAR, HUMAN 100 UNIT/ML 3 ML VIAL SQ PRN ×3 (06:29→22:08)
--- NOTE | 2017-03-26 06:30 | NUR ---
RN NOTES ACCUCHECK 87 MG/DL, NO INSULIN GIVEN.
--- NOTE | 2017-03-26 06:47 | NUR ---
RN NOTES PATIENT IS AWAKE AND ALERT, NO SOB, TOLERATING 2LPM VIA NC, SPO2 98%, DENIES ANY PAIN AT THIS TIME, SLEPT FOR 5 HOURS, NO ADVERSE CHANGE OF CONDITION DURING SHIFT, UNABLE TO COLLECT SPUTUM, PATIENT NOT COUGHING AND NO PHLEGM, NO BM, NEEDS ATTENDED, CALL LIGHT WITHIN REACH.
[2017-03-26 06:54] LABS: BASOPHILS % (AUTO) 0.2 % (0.0-2.0); EOSINOPHILS # (AUTO) 1.6 /CMM (0.0-0.7); EOSINOPHILS % (AUTO) 21.5 % (0.0-6.0); HEMATOCRIT 24 % (33-45); HEMOGLOBIN 7.9 g/dL (11.5-14.8); LYMPHOCYTES # (AUTO) 0.9 /CMM (0.8-4.8); MEAN CORPUSCULAR HEMOGLOBIN 27 PG (26.0-33.0); MEAN CORPUSCULAR HGB CONC 33 g/dl (31.0-36.0); MEAN CORPUSCULAR VOLUME 82 fL (82-100); MONOCYTES # (AUTO) 0.4 /CMM (0.1-1.30); NEUTROPHILS # (AUTO) 4.7 /CMM (1.8-8.9); NEUTROPHILS % (AUTO) 61.3 % (43.0-81.0); PLATELET COUNT (AUTO) 195 /CMM (150-450); RDW COEFFICIENT OF VARIATION 16.9 (11.5-15.0); RED BLOOD CELL COUNT(AUTO) 2.93 MIL/uL (4.0-5.2); WHITE BLOOD COUNT (AUTO) 7.6 K/uL (4.3-11.0)
[2017-03-26 07:11] LABS: ALANINE AMINOTRANSFERASE 11 U/L (12-78); ALBUMIN 2.1 g/dL (3.4-5.0); ALKALINE PHOSPHATASE 36 U/L (46-116); ASPARTATE AMINOTRANSFERASE 14 U/L (15-37); BILIRUBIN,TOTAL 0.3 mg/dL (0.2-1.0); TOTAL PROTEIN, SERUM 5.7 g/dL (6.4-8.2)
[2017-03-26 07:12] LABS: TROPONIN I < 0.017 ng/mL (0.00-0.056)
[2017-03-26 07:37] LABS: CALCIUM, SERUM 7.8 mg/dL (8.5-10.1); CARBON DIOXIDE 26 mmol/L (21-32); CHLORIDE 109 mmol/L (98-107); CREATININE 2.1 mg/dL (0.6-1.3); GLUCOSE 80 mg/dL (74-106); MAGNESIUM 1.9 mg/dL (1.8-2.4); PHOSPHORUS 4.3 mg/dL (2.5-4.9); SODIUM SERUM 143 mmol/L (136-145); UREA NITROGEN, BLOOD 28 mg/dL (7-18)
[2017-03-26 08:00] VITALS: BP 150/70
[2017-03-26 08:05] LABS: EOSINOPHILS % (MANUAL) 19 % (0-4); LYMPHOCYTES % (MANUAL) 10 % (16-48); MONOCYTES % (MANUAL) 3 % (0-11.0); NEUTROPHILS % (MANUAL) 68 (42-76)
[2017-03-26] MEDS: CARISOPRODOL 350 MG TABLET PO SCH ×3 (09:00→17:00)
[2017-03-26] MEDS: hydrALAZINE HCL 50 MG TABLET PO SCH ×3 (10:03→17:55)
[2017-03-26] MEDS: ASPIRIN EC 81 MG TABLET.DR PO SCH (10:04)
[2017-03-26] MEDS: ISOSORBIDE DINITRATE (20MG) 20 MG TABLET PO SCH ×2 (10:04→17:56)
[2017-03-26] MEDS: CLONIDINE HCL 0.1 MG TABLET PO SCH (10:04)
[2017-03-26] MEDS: CARVEDILOL 12.5 MG TABLET PO SCH ×2 (10:04→20:18)
[2017-03-26] MEDS: PANTOPRAZOLE 40 MG TABLET.DR PO SCH (10:12)
[2017-03-26] MEDS: MORPHINE SULFATE INJ 2 MG/ML DISP.SYRIN IV PRN (10:23)
--- NOTE | 2017-03-26 10:39 | NUR ---
JUST MED. FOR STOMACH PAIN WITH MORPHINE PER PT,S REQUEST.
[2017-03-26] MEDS: SOD FERRIC GLUC 125 MG in IV NS 0.9% 100 ML IV SCH (14:31)
[2017-03-26 15:03] LABS: ABG BASE EXCESS -1.6 mmol/L; ABG OXYGEN SATURATION 96.4 % (92.0-98.5); ABG PCO2 37.3 mmHg (35.0-45.0); ABG PH 7.406 (7.350-7.450); ABG PO2 96.3 mmHg (75.0-100.0); AaDO2 59.3 mmHg; COHb 0.6 % (0.5-1.5); MetHb 1.4 % (0.0-1.5); O2Hb 94.5 % (94.0-97.0); SITE, ABG Right Radial
[2017-03-26 16:00] VITALS: BP_SYST 137; BP_SYST 145; BP_DIAS 72; BP_DIAS 81
--- NOTE | 2017-03-26 17:17 | NUR ---
CATH URINE FOR Pool HARPER ORDERS.PT. GUILLAUME. WELL.
--- NOTE | 2017-03-26 19:05 | NUR ---
MS RN OPENING NOTES: RECEIVED PATIENT IN BED, ALERT AND ORIENTED X4, CALM, NO SOB, NO RESPIRATORY DISTRESS. DENIES ANY PAIN AT THIS TIME, ABLE TO VERBALIZE NEEDS. IV ON RIGHT HAND #20G IS CURRENTLY SALINE LOCK AND IS PATENT AND INTACT. CALL LIGHT WITHIN PT'S REACH. BED KEPT IN LOW, LOCKED POSITION, AND SIDE RAILS X 2 UP. WILL CONTINUE TO MONITOR PT.
[2017-03-26 20:00] VITALS: BP 147/71
[2017-03-26 21:57] LABS: URINE TOTAL PROTEIN 267.3 mg/dL (0-11.9)
[2017-03-26] MEDS: DOXAZOSIN MESYLATE (1 MG) 1 MG TABLET PO SCH (22:00)
[2017-03-26] MEDS: ATORVASTATIN 10 MG TABLET PO SCH (22:01)
--- NOTE | 2017-03-26 22:08 | NUR ---
MS RN NOTES: BLOOD SUGAR WAS 152. 2 UNITS OF INSULIN WAS ADMINISTERED. WILL CONTINUE TO MONITOR PT.
[2017-03-26] MEDS: ZOLPIDEM TARTRATE 10 MG TABLET PO PRN (23:55)
--- NOTE | 2017-03-26 23:55 | NUR ---
MS RN NOTES: PT REQUESTED FOR A SLEEPING AID. AMBIEN 10MG PO WAS GIVEN. WILL CONTINUE TO MONITOR PT.
--- NOTE | 2017-03-27 03:39 | NUR ---
MS RN NOTES: PT REPORTED THAT SHE CANNOT RETURN BACK TO SLEEP AND REQUESTED FOR ATIVAN 1MG. ATIVAN 1MG WAS ADMINISTERED. WILL CONTINUE TO MONITOR PT.
[2017-03-27] MEDS: BLOOD SUGAR DIAGNOSTIC 1 EACH STRIP IN SCH ×4 (06:09→21:59)
[2017-03-27 07:17] LABS: BASOPHILS % (AUTO) 0.3 % (0.0-2.0); EOSINOPHILS # (AUTO) 1.2 /CMM (0.0-0.7); HEMATOCRIT 24 % (33-45); HEMOGLOBIN 7.8 g/dL (11.5-14.8); LYMPHOCYTES # (AUTO) 0.8 /CMM (0.8-4.8); LYMPHOCYTES % (AUTO) 11.6 % (20.0-44.0); MEAN CORPUSCULAR HEMOGLOBIN 27 PG (26.0-33.0); MEAN CORPUSCULAR HGB CONC 33 g/dl (31.0-36.0); MEAN CORPUSCULAR VOLUME 82 fL (82-100); MONOCYTES # (AUTO) 0.4 /CMM (0.1-1.30); MONOCYTES % (AUTO) 5.3 % (2.0-12.0); NEUTROPHILS # (AUTO) 4.6 /CMM (1.8-8.9); NEUTROPHILS % (AUTO) 65.8 % (43.0-81.0); PLATELET COUNT (AUTO) 206 /CMM (150-450); RDW COEFFICIENT OF VARIATION 17.6 (11.5-15.0)
--- NOTE | 2017-03-27 07:30 | NUR ---
MS RN CLOSING NOTES: ALL NEEDS WERE ATTENDED AND ANTICIPATED FOR. PATIENT IS IN BED, ASLEEP AND RESTING. PT IS ALERT AND ORIENTED X4, CALM, NO SOB, NO RESPIRATORY DISTRESS. DENIES ANY PAIN AT THIS TIME, ABLE TO VERBALIZE NEEDS. IV ON RIGHT HAND #20G IS CURRENTLY SALINE LOCK AND IS PATENT AND INTACT. IV FLUSHED. CALL LIGHT WITHIN PT'S REACH. BED KEPT IN LOW, LOCKED POSITION, AND SIDE RAILS X 2 UP. PT ON FLUID RESTRICTION OF 1000ML/DAY. ENDORSED TO AM NURSE FOR ARIAN.
--- NOTE | 2017-03-27 07:30 | NUR ---
MS RN NOTES: BLOOD SUGAR THIS AM WAS 117. NO COVERAGE WAS GIVEN .WILL CONTINUE TO MONITOR PT.
[2017-03-27 07:33] LABS: ALANINE AMINOTRANSFERASE 11 U/L (12-78); ALBUMIN 2.1 g/dL (3.4-5.0); ALKALINE PHOSPHATASE 38 U/L (46-116); ASPARTATE AMINOTRANSFERASE 13 U/L (15-37); BILIRUBIN,TOTAL 0.3 mg/dL (0.2-1.0); CALCIUM, SERUM 7.9 mg/dL (8.5-10.1); CARBON DIOXIDE 25 mmol/L (21-32); CHLORIDE 109 mmol/L (98-107); CREATININE 2.2 mg/dL (0.6-1.3); GLUCOSE 108 mg/dL (74-106); MAGNESIUM 1.8 mg/dL (1.8-2.4); PHOSPHORUS 3.7 mg/dL (2.5-4.9); POTASSIUM 3.9 mmol/L (3.5-5.1); SODIUM SERUM 144 mmol/L (136-145); UREA NITROGEN, BLOOD 31 mg/dL (7-18)
--- NOTE | 2017-03-27 07:45 | NUR ---
MS RN OPENING NOTE PATIENT IS ALERT AND ORIENTED x4. NO PAIN AT THIS TIME. NO SOB OR DISTRESS NOTED. CALL LIGHT WITHIN REACH. SAFETY MEASURES IMPLEMENTED. ABLE TO COMMUNICATE NEEDS. IV INTACT AND PATENT NO REDNESS OR SWELLING NOTED. ON FLUID RESTRICTION 1000ML/DAY. CCHO DIET. AWAITING TO COLLECT SPUTUM AND OB STOOL. HAS MANUAL BLOOD PRESSURE CHECKS. WILL CONTINUE TO MONITOR
[2017-03-27 08:00] VITALS: BP 180/96
--- NOTE | 2017-03-27 08:00 | NUR ---
MS RN NOTE PATIENTS BLOOD PRESSURE WAS 181/96 MANUALLY MD AWARE. BLOOD PRESSURE MEDICATIONS GIVEN. WILL RECHECK BLOOD PRESSURE
[2017-03-27] MEDS: CARISOPRODOL 350 MG TABLET PO SCH ×3 (08:35→16:13)
[2017-03-27] MEDS: hydrALAZINE HCL 50 MG TABLET PO SCH ×3 (08:36→16:12)
[2017-03-27] MEDS: ASPIRIN EC 81 MG TABLET.DR PO SCH (08:37)
[2017-03-27] MEDS: ISOSORBIDE DINITRATE (20MG) 20 MG TABLET PO SCH ×2 (08:37→16:13)
[2017-03-27] MEDS: PANTOPRAZOLE 40 MG TABLET.DR PO SCH (08:37)
[2017-03-27] MEDS: CARVEDILOL 12.5 MG TABLET PO SCH ×2 (08:37→21:59)
[2017-03-27] MEDS: CLONIDINE HCL 0.1 MG TABLET PO SCH (08:38)
[2017-03-27] MEDS: NIFEdipine XL (30MG) 30 MG TAB PO SCH (11:23)
[2017-03-27] MEDS: SOD FERRIC GLUC 125 MG in IV NS 0.9% 100 ML IV SCH (14:27)
[2017-03-27 16:11] VITALS: BP 105/52
--- NOTE | 2017-03-27 18:33 | NUR ---
MS RN CLOSING NOTE PATIENT IS ALERT AND ORIENTED x4. NO PAIN AT THIS TIME. NO SOB OR DISTRESS NOTED. CALL LIGHT WITHIN REACH AT ALL TIMES. SAFETY MEASURES IMPLEMENTED. ABLE TO COMMUNICATE NEEDS. IV INTACT AND PATENT NO REDNESS OR SWELLING NOTED. ON 1000 ML/DAY FLUID RESTRICTION. PATIENT REFUSED APRESOLINE THIS MORNING. PATIENT ALSO REFUSES SOMA. EXPLAINED RISKS AND BENEFITS, PATIENT STILL REFUSES. ALL DUE MEDICATIONS GIVEN ORDERED. AMBULATORY WITH ASSISTANCE, REMINDED PATIENT TO ASK FOR ASSISTANCE. WILL ENDORSE TO AZURE ARCHITECT FOR ARIAN Addendum: 03/27/17 at 1838 by MOLLY NEELY RN PATIENT NEEDS CONSENT FOR EGD, PATIENT IS REFUSING AT THIS TIME. MADE CHARGE NURSE AWARE. MD IS AWARE AND WELL GI MD.
--- NOTE | 2017-03-27 19:05 | NUR ---
MS RN OPENING NOTES: RECEIVED PT IN BED RESTING AND AWAKE. PT IS A/OX4. PT DENIES PAIN. NO SOB OR DISTRESS NOTED. CALL LIGHT WITHIN PT'S REACH. IV INTACT AND PATENT AND WAS FLUSHED. PT ALSO INFORMED THAT SHE IS ON 1000ML FLUID RESTRICTION FOR A DAY. PT WAS INFORMED OF BEING NPO POST MIDNIGHT AND FOR EGD PROCEDURE TOMORROW BUT REFUSED TO CONSENT AND HAVE PROCEDURE PERFORMED. WILL TRY AGAIN AT ANOTHER TIME. CALL LIGHT WITHIN PT'S REACH. BED KEPT IN LOW, LOCKED POSITION, AND SIDE RAILS X 2 UP. WILL CONTINUE TO MONITOR PT.
[2017-03-27 20:00] VITALS: BP 131/46
[2017-03-27] MEDS: ATORVASTATIN 10 MG TABLET PO SCH (21:59)
[2017-03-27] MEDS: DOXAZOSIN MESYLATE (1 MG) 1 MG TABLET PO SCH (21:59)
[2017-03-27 22:00] VITALS: BP 158/66
[2017-03-27] MEDS: INSULIN REGULAR, HUMAN 100 UNIT/ML 3 ML VIAL SQ PRN (22:21)
--- NOTE | 2017-03-27 22:21 | NUR ---
MS RN NOTES: BLOOD SUGAR WAS 144. 2 UNITS OF INSULIN WAS GIVEN. WILL CONTINUE TO MONITOR PT.
--- NOTE | 2017-03-27 22:28 | NUR ---
MS RN NOTES: INFORMED PT THAT SHE WILL BE NPO POST MIDNIGHT EXCEPT MEDS FOR THE EGD PROCEDURE. PT IS REFUSING PROCEDURE. PT MENTIONED THAT SHE HAD ONE PERFORMED 2-3 WEEKS AGO. PT WAS INFORMED THAT IT WAS DOCTOR'S ORDER BUT PT STILL REFUSES.
[2017-03-28] MEDS: ZOLPIDEM TARTRATE 10 MG TABLET PO PRN (00:16)
[2017-03-28] MEDS: BLOOD SUGAR DIAGNOSTIC 1 EACH STRIP IN SCH ×2 (06:12→11:55)
--- NOTE | 2017-03-28 07:00 | NUR ---
MS RN NOTES: BLOOD SUGAR THIS AM WAS 118. NO COVERAGE WAS GIVEN. WILL CONTINUE TO MONITOR PT.
[2017-03-28 07:04] VITALS: BP 114/59
[2017-03-28 07:14] LABS: EOSINOPHILS # (AUTO) 1.1 /CMM (0.0-0.7); EOSINOPHILS % (AUTO) 15.7 % (0.0-6.0); HEMATOCRIT 24 % (33-45); HEMOGLOBIN 7.7 g/dL (11.5-14.8); LYMPHOCYTES # (AUTO) 0.8 /CMM (0.8-4.8); LYMPHOCYTES % (AUTO) 10.9 % (20.0-44.0); MEAN CORPUSCULAR HEMOGLOBIN 26 PG (26.0-33.0); MEAN CORPUSCULAR HGB CONC 32 g/dl (31.0-36.0); MEAN CORPUSCULAR VOLUME 82 fL (82-100); MONOCYTES # (AUTO) 0.3 /CMM (0.1-1.30); MONOCYTES % (AUTO) 4.6 % (2.0-12.0); NEUTROPHILS # (AUTO) 4.9 /CMM (1.8-8.9); NEUTROPHILS % (AUTO) 68.8 % (43.0-81.0); PLATELET COUNT (AUTO) 249 /CMM (150-450); RDW COEFFICIENT OF VARIATION 17.4 (11.5-15.0); RED BLOOD CELL COUNT(AUTO) 2.95 MIL/uL (4.0-5.2); WHITE BLOOD COUNT (AUTO) 7.1 K/uL (4.3-11.0)
[2017-03-28 07:30] LABS: ALANINE AMINOTRANSFERASE 12 U/L (12-78); ALBUMIN 2.4 g/dL (3.4-5.0); ALKALINE PHOSPHATASE 37 U/L (46-116); ASPARTATE AMINOTRANSFERASE 12 U/L (15-37); BILIRUBIN,TOTAL 0.3 mg/dL (0.2-1.0); CALCIUM, SERUM 8.1 mg/dL (8.5-10.1); CARBON DIOXIDE 26 mmol/L (21-32); CHLORIDE 111 mmol/L (98-107); CREATININE 2.1 mg/dL (0.6-1.3); GLUCOSE 121 mg/dL (74-106); MAGNESIUM 1.9 mg/dL (1.8-2.4); PHOSPHORUS 3.6 mg/dL (2.5-4.9); POTASSIUM 3.8 mmol/L (3.5-5.1); SODIUM SERUM 144 mmol/L (136-145); TOTAL PROTEIN, SERUM 6.5 g/dL (6.4-8.2); UREA NITROGEN, BLOOD 31 mg/dL (7-18)
--- NOTE | 2017-03-28 07:33 | NUR ---
MS RN CLOSING NOTES: ALL NEEDS WERE ATTENDED AND ANTICIPATED FOR. PT IS A/OX4. PT DENIES PAIN. NO SOB OR DISTRESS NOTED. CALL LIGHT WITHIN PT'S REACH. IV INTACT AND PATENT AND WAS FLUSHED. PT ALSO INFORMED THAT SHE IS ON 1000ML FLUID RESTRICTION FOR A DAY. CALL LIGHT WITHIN PT'S REACH. BED KEPT IN LOW, LOCKED POSITION, AND SIDE RAILS X 2 UP. ENDORSED TO AM NURSE FOR ARIAN.
--- NOTE | 2017-03-28 07:46 | NUR ---
MS RN OPENING NOTE PATIENT IS ALERT AND ORIENTED x4. NO PAIN AT THIS TIME. NO SOB OR DISTRESS NOTED. CALL LIGHT WITHIN REACH.SAFETY MEASURES IMPLEMENTED. ABLE TO COMMUNICATE NEEDS. IV INTACT AND PATENT NO REDNESS OR SWELLING NOTED. AMBULATORY WITH ASSISTANCE. ON 100ML/DAY FLUID RESTRICTION. WILL CONTINUE TO MONITOR. Addendum: 03/28/17 at 1013 by MOLLY NEELY RN MADE MD AWARE ABOUT PATIENT REFUSING EGD AND HGB-7.7
[2017-03-28 08:00] VITALS: BP 150/64
[2017-03-28 08:12] LABS: CARCINOEMBRYONIC AG (CEA) 1.4 ng/mL (0.0-4.7)
[2017-03-28] MEDS: CLONIDINE HCL 0.1 MG TABLET PO SCH (08:23)
[2017-03-28] MEDS: CARISOPRODOL 350 MG TABLET PO SCH ×2 (08:23→13:00)
[2017-03-28] MEDS: hydrALAZINE HCL 50 MG TABLET PO SCH ×2 (08:23→13:00)
[2017-03-28] MEDS: ASPIRIN EC 81 MG TABLET.DR PO SCH (08:25)
[2017-03-28] MEDS: CARVEDILOL 12.5 MG TABLET PO SCH (08:25)
[2017-03-28] MEDS: PANTOPRAZOLE 40 MG TABLET.DR PO SCH (08:25)
[2017-03-28] MEDS: NIFEdipine XL (30MG) 30 MG TAB PO SCH (08:25)
[2017-03-28 08:26] VITALS: BP 158/70
[2017-03-28] MEDS: ISOSORBIDE DINITRATE (20MG) 20 MG TABLET PO SCH (08:26)
[2017-03-28] MEDS ORDERED: NIFEdipine XL (30MG) 30 MG TAB PO SCH (09:00)
[2017-03-28] MEDS ORDERED: NIFE30TA89 PO (11:07)
--- NOTE | 2017-03-28 12:41 | NUR ---
MS RN NOTE PATIENT BLOOD SUGAR-126. NO INSULIN NEEDED
--- NOTE | 2017-03-28 14:03 | NUR ---
MS MANAGER PHOTO NOTE PATIENT IS ALERT AND ORIENTED x4. NO PAIN AT THIS TIME, NO SOB OR DISTRESS NOTED. IV REMOVED SKIN INTACT. ALL BELONGINGS WITH PATIENT. ALL DISCHARGE INSTRUCTIONS GIVEN TO PATIENT AND FAMILY MEMBER, VERBAL TEACH BACK RECEIVED. PATIENT TO CONTINUE HOME MEDICATIONS PRESCRIBED BY MD. ABLE TO COMMUNICATE NEEDS. AMBULATORY WITH ASSISTANCE WITH CANE. LEAVING WITH DAUGHTER-AMPARO VIA PRIVATE CAR.
== END 2017-03-28 14:07 | disposition home or self-care (01) | DRG 291 ==
LOC: ER 14:17 → TELE 16:51 → MED 03-25 09:09
PROVIDERS: ADMIT Internal Medicine; ATTEND Internal Medicine
DX: I13.0 Hypertensive heart and chronic kidney disease with heart failure and stage 1 through stage 4 chronic kidney disease, or unspecified chronic kidney disease (principal); E43 Unspecified severe protein-calorie malnutrition; N17.0 Acute kidney failure with tubular necrosis; K29.71 Gastritis, unspecified, with bleeding; I50.43 Acute on chronic combined systolic (congestive) and diastolic (congestive) heart failure; J90 Pleural effusion, not elsewhere classified; J98.11 Atelectasis; E66.2 Morbid (severe) obesity with alveolar hypoventilation; E11.22 Type 2 diabetes mellitus with diabetic chronic kidney disease; D50.9 Iron deficiency anemia, unspecified; E11.69 Type 2 diabetes mellitus with other specified complication; N18.3 Chronic kidney disease, stage 3 (moderate); Z91.19 Patient's noncompliance with other medical treatment and regimen; Z91.14 Patient's other noncompliance with medication regimen; Z82.49 Family history of ischemic heart disease and other diseases of the circulatory system; Z79.899 Other long term (current) drug therapy; Z79.82 Long term (current) use of aspirin; K21.9 Gastro-esophageal reflux disease without esophagitis; I25.2 Old myocardial infarction; I25.10 Atherosclerotic heart disease of native coronary artery without angina pectoris; G89.4 Chronic pain syndrome; D63.8 Anemia in other chronic diseases classified elsewhere; F41.9 Anxiety disorder, unspecified; E78.5 Hyperlipidemia, unspecified; Z90.5 Acquired absence of kidney; Z88.6 Allergy status to analgesic agent; Z88.1 Allergy status to other antibiotic agents; Z88.5 Allergy status to narcotic agent; Z88.0 Allergy status to penicillin; Z88.2 Allergy status to sulfonamides; Z77.22 Contact with and (suspected) exposure to environmental tobacco smoke (acute) (chronic); Z68.32 Body mass index [BMI] 32.0-32.9, adult
CPT/HCPCS: 36415; 36600; 71010-TC; 80048-TC; 80053-TC; 80061-TC; 80076-TC; 81000-TC; 82150-TC; 82378; 82553-TC; 82570-TC; 82746; 82962-TC; 83540-TC; 83690-TC; 83735-TC; 83880; 84100-TC; 84155-TC; 84300-TC; 84443-TC; 84484-TC; 85025-TC; 85045-TC; 85652-TC; 85730-TC; 86301; 87040-TC; 87081-TC; 87086-TC; 93307-TC; 93970-TC; A4606; J1815; J1940; J2270; J2916; J7030; Z7610

== ENCOUNTER 2017-06-02 17:44 | Emergency (ER) | payer MEDICARE, OTHER ==
[~2017-06-02] VITALS: Ht 165.1 cm; Wt 92.5 kg
[~2017-06-02 17:44] MED LIST changes: +NIFE30TA89 PO
[2017-06-02 19:44] VITALS: BP 145/81
[2017-06-02] MEDS ORDERED: ALBUTEROL FS 2.5 MG/3 ML VIAL.NEB NEB ONE (21:30)
[2017-06-02] MEDS ORDERED: ALBUTEROL FS 2.5 MG/3 ML VIAL.NEB ONE (21:33)
== END 2017-06-03 01:15 | disposition home or self-care (01) ==
LOC: ER 17:55
DX: J06.9 Acute upper respiratory infection, unspecified (principal); E11.9 Type 2 diabetes mellitus without complications; I11.0 Hypertensive heart disease with heart failure; I50.9 Heart failure, unspecified; Z79.82 Long term (current) use of aspirin; Z88.0 Allergy status to penicillin; Z88.5 Allergy status to narcotic agent; Z88.1 Allergy status to other antibiotic agents; Z88.6 Allergy status to analgesic agent; Z88.2 Allergy status to sulfonamides
CPT/HCPCS: 71010; 94640; 99283; A4606; Z7610

== ENCOUNTER 2017-07-31 12:44 | Emergency (ER) | payer MEDICARE, OTHER ==
[~2017-07-31] VITALS: Ht 165.1 cm; Wt 95.3 kg
[~2017-07-31 12:44] MED LIST changes: +LORA-259 PO; -LORA1TAB82 PO
--- NOTE | 2017-07-31 12:49 | NUR ---
BB : R ARM PAIN S/P GLF
[2017-07-31 13:35] LABS: BASOPHILS # (AUTO) 0.2 /CMM (0.0-0.2); BASOPHILS % (AUTO) 2.1 % (0.0-2.0); EOSINOPHILS # (AUTO) 0.1 /CMM (0.0-0.7); EOSINOPHILS % (AUTO) 1.3 % (0.0-6.0); HEMATOCRIT 35 % (33-45); HEMOGLOBIN 11.9 g/dL (11.5-14.8); LYMPHOCYTES # (AUTO) 0.6 /CMM (0.8-4.8); LYMPHOCYTES % (AUTO) 7.2 % (20.0-44.0); MEAN CORPUSCULAR HEMOGLOBIN 30 PG (26.0-33.0); MEAN CORPUSCULAR HGB CONC 34 g/dl (31.0-36.0); MEAN CORPUSCULAR VOLUME 88 fL (82-100); MONOCYTES # (AUTO) 0.4 /CMM (0.1-1.30); MONOCYTES % (AUTO) 4.9 % (2.0-12.0); NEUTROPHILS % (AUTO) 84.5 % (43.0-81.0); PLATELET COUNT (AUTO) 210 /CMM (150-450); RDW COEFFICIENT OF VARIATION 14.9 (11.5-15.0); RED BLOOD CELL COUNT(AUTO) 3.97 MIL/uL (4.0-5.2); WHITE BLOOD COUNT (AUTO) 8.3 K/uL (4.3-11.0)
[2017-07-31 14:05] LABS: CALCIUM, SERUM 8.6 mg/dL (8.5-10.1); CARBON DIOXIDE 25 mmol/L (21-32); CHLORIDE 111 mmol/L (98-107); CREATININE 2.2 mg/dL (0.6-1.3); GLUCOSE 120 mg/dL (74-106); POTASSIUM 3.1 mmol/L (3.5-5.1); SODIUM SERUM 145 mmol/L (136-145); UREA NITROGEN, BLOOD 27 mg/dL (7-18)
[2017-07-31 14:13] LABS: TROPONIN I 0.055 ng/mL (0.00-0.056)
[2017-07-31] MEDS ORDERED: IBUPROFEN 600 MG TABLET PO ONE ×2 (14:43→15:00)
[2017-07-31] MEDS ORDERED: CLONIDINE HCL 0.1 MG TABLET ONE ×2 (14:55→15:38)
[2017-07-31] MEDS ORDERED: CLONIDINE HCL 0.1 MG TABLET PO ONE ×2 (15:00→16:00)
--- NOTE | 2017-07-31 15:03 | NUR ---
Patient discharged to home in stable condition. Written and verbal after care instructions given. Patient verbalizes understanding of instruction.
[2017-07-31 16:05] VITALS: BP 165/93
== END 2017-07-31 16:09 | disposition home or self-care (01) ==
LOC: ER 12:45
DX: S49.91XA Unspecified injury of right shoulder and upper arm, initial encounter (principal); R06.02 Shortness of breath; I10 Essential (primary) hypertension; E11.9 Type 2 diabetes mellitus without complications; I50.9 Heart failure, unspecified; Z88.0 Allergy status to penicillin; Z88.2 Allergy status to sulfonamides; Z88.8 Allergy status to other drugs, medicaments and biological substances; Z88.5 Allergy status to narcotic agent; Z88.6 Allergy status to analgesic agent; Z79.82 Long term (current) use of aspirin; W18.39XA Other fall on same level, initial encounter; Y93.89 Activity, other specified; Y92.090 Kitchen in other non-institutional residence as the place of occurrence of the external cause; Y99.8 Other external cause status
CPT/HCPCS: 36415; 73030; 80048; 84484; 85025; 99285; A4606; Z7610

== ENCOUNTER 2017-09-20 11:23 | Inpatient (IN) | payer MEDICARE, OTHER ==
[~2017-09-20] VITALS: Ht 165.1 cm; Wt 89.8 kg
--- NOTE | 2017-09-20 11:25 | NUR ---
[id number] FROM HOME: SOB X 1 DAY. CHEST PAIN ASA 162, NITRO X 2 GIVEN IN FIELD BY EMS. NAD NOTED, VSS, RESP EVEN AND UNLABORED. WAITING FOR MD BLACKMAN.
[2017-09-20] MEDS ORDERED: FUROSEMIDE 40 MG/4 ML VIAL IV ONE (12:00)
[2017-09-20] MEDS ORDERED: NITROGLYCERIN PACKET 1 GM PACKET TD ONE (12:00)
[2017-09-20] MEDS ORDERED: ASPIRIN 325 MG TABLET PO ONE (12:00)
--- NOTE | 2017-09-20 12:16 | NUR ---
CALLED NURSING FOOD SCIENCE TECHNICIAN FOR ULTRASOUND IV INSERTION.
[2017-09-20] MEDS ORDERED: NITROGLYCERIN PACKET 1 GM PACKET ONE (12:20)
[2017-09-20] MEDS ORDERED: ASPIRIN 325 MG TABLET ONE (12:20)
[2017-09-20] MEDS ORDERED: FUROSEMIDE 40 MG/4 ML VIAL ONE (12:20)
[2017-09-20 12:44] LABS: BASOPHILS % (AUTO) 0.6 % (0.0-2.0); EOSINOPHILS # (AUTO) 0.4 /CMM (0.0-0.7); EOSINOPHILS % (AUTO) 6.1 % (0.0-6.0); HEMATOCRIT 32 % (33-45); HEMOGLOBIN 11.1 g/dL (11.5-14.8); LYMPHOCYTES # (AUTO) 0.6 /CMM (0.8-4.8); LYMPHOCYTES % (AUTO) 8.4 % (20.0-44.0); MEAN CORPUSCULAR HEMOGLOBIN 30 PG (26.0-33.0); MEAN CORPUSCULAR HGB CONC 35 g/dl (31.0-36.0); MEAN CORPUSCULAR VOLUME 88 fL (82-100); MONOCYTES # (AUTO) 0.4 /CMM (0.1-1.30); MONOCYTES % (AUTO) 4.9 % (2.0-12.0); NEUTROPHILS # (AUTO) 5.8 /CMM (1.8-8.9); PLATELET COUNT (AUTO) 194 /CMM (150-450); RDW COEFFICIENT OF VARIATION 14.3 (11.5-15.0); RED BLOOD CELL COUNT(AUTO) 3.65 MIL/uL (4.0-5.2); WHITE BLOOD COUNT (AUTO) 7.2 K/uL (4.3-11.0)
[2017-09-20 12:55] LABS: CALCIUM, SERUM 8.8 mg/dL (8.5-10.1); CARBON DIOXIDE 23 mmol/L (21-32); CHLORIDE 112 mmol/L (98-107); CREATININE 2.6 mg/dL (0.6-1.3); GLUCOSE 114 mg/dL (74-106); SODIUM SERUM 144 mmol/L (136-145); UREA NITROGEN, BLOOD 34 mg/dL (7-18)
[2017-09-20 13:11] LABS: ALANINE AMINOTRANSFERASE 10 U/L (12-78); ALBUMIN 2.8 g/dL (3.4-5.0); ALKALINE PHOSPHATASE 62 U/L (46-116); ASPARTATE AMINOTRANSFERASE 21 U/L (15-37); B-TYPE NATRIURETIC PEPTIDE 7100 PG/ML (0-125); BILIRUBIN,DIRECT 0.1 mg/dL (0.0-0.2); BILIRUBIN,TOTAL 0.6 mg/dL (0.2-1.0)
[2017-09-20] MEDS ORDERED: POTA20TA83 PO (13:34)
[2017-09-20] MEDS ORDERED: LOSA25TA13 PO (13:34)
[2017-09-20 14:03] LABS: INR 0.93 (0.85-1.15)
[2017-09-20 14:05] LABS: TROPONIN I < 0.017 ng/mL (0.00-0.056)
--- NOTE | 2017-09-20 14:35 | NUR ---
BED 322-2
[2017-09-20] MEDS ORDERED: MORPHINE SULFATE INJ 4 MG/ML DISP.SYRIN ONE (14:42)
[2017-09-20] MEDS ORDERED: ONDANSETRON HCL/PF 4 MG/2 ML VIAL ONE (14:42)
[2017-09-20] MEDS ORDERED: Z GUARD REMEDY 2 OZ OINT TP PRN (15:00)
[2017-09-20] MEDS ORDERED: ONDANSETRON HCL/PF 4 MG/2 ML VIAL IVP PRN (15:00)
[2017-09-20] MEDS ORDERED: ENOXAPARIN SODIUM 40 MG/0.4 ML DISP.SYRIN SQ SCH (15:00)
[2017-09-20] MEDS ORDERED: MAG HYDROX/AL HYDROX/SIMETH 30 ML UDC PO PRN (15:00)
[2017-09-20] MEDS ORDERED: MAGNESIUM HYDROXIDE 30 ML UDC PO PRN (15:00)
[2017-09-20] MEDS ORDERED: ZOLPIDEM TARTRATE 5 MG TABLET PO PRN (15:00)
--- NOTE | 2017-09-20 15:04 | NUR ---
VERBAL ORDER RECEIVED FROM DR CORBIN TO GIVE MORPHINE 4MG IVP ONCE AND ZOFRAN IVP 4MG ONCE. ORDERED CARRIED OUT.
--- NOTE | 2017-09-20 15:15 | NUR ---
GLASS PROCESSING WORKER NOTES RECEIVED PATIENT IN BED RESTING NO SOB OR ACUTE DISTRESS. PATIENT NOTED TO HAVE SOB WITH EXERTION. PATIENT ALERT, ORIENTED X3. PATIENT NOTED WITH EDEMA TO BLE NONE PITTING. ON 2L VIA NSAL CANULA. PATIENT ORIENTED TO ROOM, BED IN LOW LOCKED POSITION. CALL LIGHT WITHIN REACH. WILL CONTINUE TO MONITOR.
[2017-09-20] MEDS ORDERED: LORAZEPAM 1 MG TABLET PO PRN (15:30)
[2017-09-20] MEDS ORDERED: hydrALAZINE HCL 25 MG TABLET PO PRN (15:30)
[2017-09-20 16:00] VITALS: BP 162/90
[2017-09-20] MEDS: ENOXAPARIN SODIUM 30 MG/0.3 ML DISP.SYRIN SQ SCH (16:44)
[2017-09-20] MEDS: ALBUTEROL FS 2.5 MG/3 ML VIAL.NEB NEB SCH ×2 (17:14→19:43)
--- NOTE | 2017-09-20 18:39 | NUR ---
STREET RAILWAY LINE INSTALLER NOTES PATIENT ON TELE MONITOR SR. ALERT, ORIENTED X3. NO SOB OR ACUTE DISTRESS NOTED. ALL DUE MEDICATIONS ADMINISTERED. ALL NEEDS MET. WILL ENDORSE TO PM SHIFT ARIAN.
[2017-09-20 20:00] VITALS: BP 190/79
[2017-09-20 20:16] VITALS: BP 190/79
[2017-09-20] MEDS: hydrALAZINE HCL 50 MG TABLET PO SCH (20:28)
[2017-09-21] VITALS (8 sets, daily range): BP systolic 143–164; BP diastolic 65–98
--- NOTE | 2017-09-21 04:50 | NUR ---
ALERT AND ORIENTATED X4 SPEECH CLEAR. WITH MOBILITY SHE NEEDS MUCH ASSIST D/T OBESITY . sHE WAS GIVEN LASIX IN ER AND WAS INCONTINENT UA AT TIMES.. FAMILY CAME TO VISIT HER. LEGS SWOLLOEN ENCOURAGED HER TO KEEP UP ON A PILLOW 02 ON NC THRU THE NIGHT SATS 97% LUNGS VIA AUSCULTATION CLEAR
[2017-09-21] MEDS: hydrALAZINE HCL 50 MG TABLET PO SCH ×3 (05:45→20:40)
[2017-09-21 06:36] LABS: BASOPHILS % (AUTO) 0.5 % (0.0-2.0); EOSINOPHILS # (AUTO) 0.5 /CMM (0.0-0.7); EOSINOPHILS % (AUTO) 8.1 % (0.0-6.0); HEMATOCRIT 30 % (33-45); HEMOGLOBIN 10.2 g/dL (11.5-14.8); LYMPHOCYTES # (AUTO) 0.7 /CMM (0.8-4.8); LYMPHOCYTES % (AUTO) 11.7 % (20.0-44.0); MEAN CORPUSCULAR HEMOGLOBIN 30 PG (26.0-33.0); MEAN CORPUSCULAR HGB CONC 34 g/dl (31.0-36.0); MEAN CORPUSCULAR VOLUME 90 fL (82-100); MONOCYTES # (AUTO) 0.4 /CMM (0.1-1.30); MONOCYTES % (AUTO) 6.4 % (2.0-12.0); NEUTROPHILS # (AUTO) 4.5 /CMM (1.8-8.9); NEUTROPHILS % (AUTO) 73.3 % (43.0-81.0); PLATELET COUNT (AUTO) 209 /CMM (150-450); RDW COEFFICIENT OF VARIATION 15.5 (11.5-15.0); RED BLOOD CELL COUNT(AUTO) 3.36 MIL/uL (4.0-5.2); WHITE BLOOD COUNT (AUTO) 6.1 K/uL (4.3-11.0)
[2017-09-21 06:53] LABS: CHOLESTEROL 196 mg/dL (<200); HDL CHOLESTEROL 83 mg/dL (40-60); LDL 90 mg/dL (0-99); TRIGLYCERIDES 113 mg/dL (30-150)
[2017-09-21 06:56] LABS: CALCIUM, SERUM 8.7 mg/dL (8.5-10.1); CARBON DIOXIDE 30 mmol/L (21-32); CHLORIDE 111 mmol/L (98-107); CREATININE 2.8 mg/dL (0.6-1.3); GLUCOSE 89 mg/dL (74-106); MAGNESIUM 2.2 mg/dL (1.8-2.4); PHOSPHORUS 5.4 mg/dL (2.5-4.9); POTASSIUM 4.4 mmol/L (3.5-5.1); SODIUM SERUM 147 mmol/L (136-145); UREA NITROGEN, BLOOD 35 mg/dL (7-18)
--- NOTE | 2017-09-21 07:30 | NUR ---
RN MS NOTES PT IN BED, AWAKE, ALERT AND ORIENTED, DENIES PAIN OR ANY DISCOMFORT, BREATHING PATTERN NORMAL AND NOT LABORED, CALL LIGHT WITHIN REACH, KEPT WARM AND COMFORTABLE, ASSISTED WITH NEEDS.
[2017-09-21] MEDS: ALBUTEROL FS 2.5 MG/3 ML VIAL.NEB NEB SCH ×4 (08:35→20:02)
[2017-09-21] MEDS ORDERED: NIFEdipine XL (30MG) 30 MG TAB PO SCH (09:00)
[2017-09-21] MEDS ORDERED: LOSARTAN POTASSIUM 25 MG TABLET PO SCH (09:00)
[2017-09-21] MEDS: FUROSEMIDE 100 MG/10 ML VIAL IV SCH ×3 (09:43→17:36)
--- NOTE | 2017-09-21 13:00 | NUR ---
RN MS NOTES PT IN BED, AWAKE, DENIES PAIN, RESPIRATIONS NORMAL AND NOT LABORED, ASSISTED IN TURNING AND REPOSITIONING, ASSISTED WITH MEALS AND ADL'S, KEPT CLEAN AND DRY, CALL LIGHT WITHIN REACH.
--- NOTE | 2017-09-21 19:00 | NUR ---
RN MS NOTES PT IN BED, AWAKE, ALERT AND ORIENTED, NO COMPLAINT OF PAIN, NOT IN DISTRESS, CALL LIGHT WITHIN REACH, ORDER RECEIVED FOR THORACENTESIS TOMORROW, EXPLAINED PROCEDURE TO PT, VERBALIZED UNDERSTANDING, CONSENT SIGNED BY PT, PM MEDS GIVEN, ALL NEEDS ATTENDED.
--- NOTE | 2017-09-21 19:05 | NUR ---
RN OPENING NOTES PT AWAKE AND RESTING IN BED. NO COMPLAINTS OF PAIN, SOB, OR DISTRESS AT THIS TIME. PT HAS A RIGHT UPPER ARM MIDLINE #18, INTACT AND PATENT. PT HAS A US GUIDED ULTRASOUND OF THE RIGHT LUNG SCHEDULED FOR TOMORROW, CONSENT IN CHART. SAFETY PRECAUTIONS IN PLACE, BED IN LOW, LOCKED POSITION, X2 SIDERAILS UP, AND CALL LIGHT WITHIN REACH.
[2017-09-21] MEDS: ENOXAPARIN SODIUM 30 MG/0.3 ML DISP.SYRIN SQ SCH (20:41)
[2017-09-21] MEDS: ZOLPIDEM TARTRATE 10 MG TABLET PO PRN (23:10)
[2017-09-22] MEDS: hydrALAZINE HCL 50 MG TABLET PO SCH ×3 (05:52→21:05)
--- NOTE | 2017-09-22 06:39 | NUR ---
RN CLOSING NOTES PT AWAKE AND RESTING IN BED. NO COMPLAINTS OF PAIN, SOB, OR DISTRESS AT THIS TIME. PT HAS A RIGHT UPPER ARM MIDLINE #18, INTACT AND PATENT. PT HAS A US GUIDED ULTRASOUND OF THE RIGHT LUNG SCHEDULED FOR TODAY, CONSENT SIGNED AND THE IN CHART. SAFETY PRECAUTIONS IN PLACE, BED IN LOW, LOCKED POSITION, X2 SIDERAILS UP, AND CALL LIGHT WITHIN REACH. WILL ENDORSE TO DAY SHIFT NURSE FOR CONTINUITY OF CARE.
[2017-09-22 07:44] LABS: BASOPHILS % (AUTO) 0.4 % (0.0-2.0); EOSINOPHILS # (AUTO) 0.6 /CMM (0.0-0.7); EOSINOPHILS % (AUTO) 8.7 % (0.0-6.0); HEMATOCRIT 30 % (33-45); HEMOGLOBIN 9.9 g/dL (11.5-14.8); LYMPHOCYTES # (AUTO) 0.7 /CMM (0.8-4.8); LYMPHOCYTES % (AUTO) 10.5 % (20.0-44.0); MEAN CORPUSCULAR HEMOGLOBIN 30 PG (26.0-33.0); MEAN CORPUSCULAR HGB CONC 34 g/dl (31.0-36.0); MEAN CORPUSCULAR VOLUME 89 fL (82-100); MONOCYTES # (AUTO) 0.4 /CMM (0.1-1.30); NEUTROPHILS # (AUTO) 4.8 /CMM (1.8-8.9); NEUTROPHILS % (AUTO) 74.4 % (43.0-81.0); PLATELET COUNT (AUTO) 210 /CMM (150-450); RED BLOOD CELL COUNT(AUTO) 3.31 MIL/uL (4.0-5.2); WHITE BLOOD COUNT (AUTO) 6.4 K/uL (4.3-11.0)
[2017-09-22 07:54] LABS: TROPONIN I < 0.017 ng/mL (0.00-0.056)
[2017-09-22 07:56] LABS: ALANINE AMINOTRANSFERASE 15 U/L (12-78); ALBUMIN 2.8 g/dL (3.4-5.0); ALKALINE PHOSPHATASE 50 U/L (46-116); ASPARTATE AMINOTRANSFERASE 17 U/L (15-37); BILIRUBIN,TOTAL 0.5 mg/dL (0.2-1.0); CALCIUM, SERUM 8.7 mg/dL (8.5-10.1); CARBON DIOXIDE 28 mmol/L (21-32); CHLORIDE 106 mmol/L (98-107); CREATININE 2.8 mg/dL (0.6-1.3); GLUCOSE 106 mg/dL (74-106); PHOSPHORUS 5.5 mg/dL (2.5-4.9); POTASSIUM 4.1 mmol/L (3.5-5.1); SODIUM SERUM 142 mmol/L (136-145); TOTAL PROTEIN, SERUM 6.8 g/dL (6.4-8.2); UREA NITROGEN, BLOOD 35 mg/dL (7-18)
[2017-09-22 08:00] VITALS: BP 149/79
[2017-09-22] MEDS: ALBUTEROL FS 2.5 MG/3 ML VIAL.NEB NEB SCH ×4 (08:13→19:32)
[2017-09-22] MEDS ORDERED: hydrALAZINE HCL 25 MG TABLET PO PRN (10:00)
[2017-09-22] MEDS: NIFEdipine XL 60 MG TAB PO SCH (10:15)
[2017-09-22] MEDS ORDERED: LIDOCAINE 1% INJ 50 ML MDV IJ ONE (10:23)
[2017-09-22] MEDS: FUROSEMIDE 100 MG/10 ML VIAL IV SCH ×3 (10:59→17:48)
[2017-09-22] MEDS: METOLAZONE 2.5 MG TABLET PO SCH (11:09)
--- NOTE | 2017-09-22 12:00 | NUR ---
m/s magnolia: notes received pt in bed awake, a/ox4. s/p thoracentesis 1145am. specimen at bedside with 1 bottle and 60 ml syringe of clear yellow fluid collected. stat cxr ordered by doron (magnolia) and report given for continuity of care. instructed to call for assistance. will continue to monitor. Addendum: 09/22/17 at 1236 by PIERO MARES LVN correction on above fluid collection: 1110 ml mata fluid collected to right pleural; s/p thoracentesis.
--- NOTE | 2017-09-22 12:25 | NUR ---
m/s ticket sales agent: notes cxr tech at bedside at this time. sent specimen to pathology at this time.
[2017-09-22 12:37] LABS: IRON, SERUM 68 ug/dl (50-175); TOTAL IRON BINDING CAPACITY 235 ug/dl (250-450)
[2017-09-22 13:53] LABS: FERRITIN 145 ng/mL (8-388)
[2017-09-22 15:39] LABS: ABG BASE EXCESS -0.2 mmol/L; ABG OXYGEN SATURATION 91.4 % (92.0-98.5); ABG PCO2 43.1 mmHg (35.0-45.0); ABG PH 7.381 (7.350-7.450); ABG PO2 62.6 mmHg (75.0-100.0); AaDO2 86.2 mmHg; COHb 0.3 % (0.5-1.5); MetHb 0.7 % (0.0-1.5); O2Hb 90.5 % (94.0-97.0); SITE, ABG Left Radial; VENT MODE, BG 2L NC
--- NOTE | 2017-09-22 15:40 | NUR ---
m/s adjuster piano action: notes pt called and c/o headache, pt is allergic to acetaminophen, ibuprofen, oxycodone hcl, and codeine. pt requesting for morphine and dilaudid, stated, "i'm okay with morphine and dilaudid, i had dilaudid and morphine before." dr. lugo notified, left message. pt made aware.
[2017-09-22 16:00] VITALS: BP 143/71
--- NOTE | 2017-09-22 16:00 | NUR ---
m/s primary therapist: notes pt still insisting getting morphine for her headache. cn aware. left message to dr. lugo.
--- NOTE | 2017-09-22 16:30 | NUR ---
m/s lettuce trimmer: notes pt called once more and insisted of getting the morphine for her headache. cn called dr. lugo via voice mail. will continue to monitor. pt aware.
--- NOTE | 2017-09-22 17:24 | NUR ---
RN NOTES: DR DEJESUS ORDERED IV MORPHINE 2 MG Q 6 HOURS PRN SHE ALSO ORDERED BENADRYL 25 MG Q 6 HOURS PRN SPOKE TO TESS FROM [place] TO GIVE MEDICATION. PATIENT TO BE MONITORED CLOSELY Addendum: 09/22/17 at 1727 by PIERO MARES DOG WARDEN m/s freezer person: notes DR DEJESUS ORDERED IV MORPHINE 2 MG Q 6 HOURS PRN SHE ALSO ORDERED BENADRYL 25 MG Q 6 HOURS PRN SPOKE TO TESS FROM [place] TO GIVE MEDICATION. PATIENT TO BE MONITORED CLOSELY
[2017-09-22] MEDS ORDERED: MORPHINE SULFATE INJ 2 MG/ML DISP.SYRIN IV PRN (17:30)
[2017-09-22] MEDS ORDERED: diphenhydrAMINE HCL 25 MG CAPSULE PO PRN (17:30)
--- NOTE | 2017-09-22 17:48 | NUR ---
RN NOTES ADMINISTERED DILAUDID 0.25 MG/ML IV PUSH, FOR GENERALIZED PAIN 10/10, V/S TAKEN STABLE, BP 143/71, P-102, ALSO GIVEN LASIX 80 MG/ML IV PUSH SCHEDULED , CONTINUED MONITORING.
[2017-09-22] MEDS ORDERED: HYDROMORPHONE INJ 0.5 MG/0.5 ML SYRINGE IV PRN (18:00)
--- NOTE | 2017-09-22 18:18 | NUR ---
m/s doormaker: notes pt verbalized 4/10 relief of pain. instructed to call for assistance. family at bedside. will monitor.
--- NOTE | 2017-09-22 19:10 | NUR ---
m/s reject opener and filler: notes report given to gio (rn) for continuity of care.
--- NOTE | 2017-09-22 19:40 | NUR ---
MS RN OPENING NOTES PT IN BED, ALERT, AWAKE, VERBALLY RESPONSIVE. ON ROOM AIR, RESPIRATIONS EVEN, UNLABORED, NO APPARENT DISTRESS NOTED. DENIES ANY PAIN OR DISCOMFORT AT THIS TIME. IV SITE MARGAUX INTACT, PATENT.CALL LIGHT WITHIN REACH. BED LOCKED IN LOWEST POSITION. KEPT CLEAN AND COMFORTABLE, ATTENDED ALL NEEDS. WILL CONTINUE TO MONITOR ACCORDINGLY.
[2017-09-22 20:00] VITALS: BP 154/52
[2017-09-22] MEDS: ATORVASTATIN 40 MG TABLET PO SCH (21:05)
[2017-09-22] MEDS: ENOXAPARIN SODIUM 30 MG/0.3 ML DISP.SYRIN SQ SCH (21:07)
[2017-09-22 22:00] VITALS: BP 132/78
[2017-09-23] MEDS: ZOLPIDEM TARTRATE 10 MG TABLET PO PRN (00:05)
[2017-09-23] MEDS: hydrALAZINE HCL 50 MG TABLET PO SCH ×3 (05:07→21:00)
--- NOTE | 2017-09-23 06:26 | NUR ---
MS RN CLOSING NOTES PT IN BED AWAKE,ALERT, VERBALLY RESPONSIVE, ON ROOM AIR, RESPIRATIONS EVEN, UNLABORED, NO APPARENT DISTRESS NOTED.DENIES ANY PAIN OR DISCOMFORT AT THIS TIME.IV SITE MARGAUX MIDLINE INTACT, PATENT.KEPT CLEAN AND COMFORTABLE.BED LOCKED IN LOWEST POSITION,ATTENDED ALL NEEDS.WILL CONTINUE TO MONITOR ACCORDINGLY
--- NOTE | 2017-09-23 07:13 | NUR ---
ms rn initial notes Received patient in bed, awake, head of bed elevated, no SOB or distress noted on room air and tolerated well. Patient is alert and oriented x 4, verbally responsive and able to make needs known. MARGAUX midline in placed and intact, SL only. No complaint of pain or discomfort at this time. Kept patient clean and comfortable in bed, call light with in patient reach, will continue to monitor accordingly.
[2017-09-23 07:27] LABS: BASOPHILS % (AUTO) 0.2 % (0.0-2.0); EOSINOPHILS # (AUTO) 0.4 /CMM (0.0-0.7); EOSINOPHILS % (AUTO) 6.4 % (0.0-6.0); HEMATOCRIT 29 % (33-45); HEMOGLOBIN 9.9 g/dL (11.5-14.8); LYMPHOCYTES # (AUTO) 0.5 /CMM (0.8-4.8); LYMPHOCYTES % (AUTO) 8.3 % (20.0-44.0); MEAN CORPUSCULAR HEMOGLOBIN 30 PG (26.0-33.0); MEAN CORPUSCULAR HGB CONC 34 g/dl (31.0-36.0); MEAN CORPUSCULAR VOLUME 88 fL (82-100); MONOCYTES # (AUTO) 0.4 /CMM (0.1-1.30); NEUTROPHILS # (AUTO) 5.1 /CMM (1.8-8.9); NEUTROPHILS % (AUTO) 79.1 % (43.0-81.0); PLATELET COUNT (AUTO) 198 /CMM (150-450); RDW COEFFICIENT OF VARIATION 14.7 (11.5-15.0); RED BLOOD CELL COUNT(AUTO) 3.31 MIL/uL (4.0-5.2); WHITE BLOOD COUNT (AUTO) 6.4 K/uL (4.3-11.0)
[2017-09-23 07:38] LABS: ALANINE AMINOTRANSFERASE 14 U/L (12-78); ALBUMIN 2.7 g/dL (3.4-5.0); ALKALINE PHOSPHATASE 49 U/L (46-116); ASPARTATE AMINOTRANSFERASE 16 U/L (15-37); BILIRUBIN,TOTAL 0.7 mg/dL (0.2-1.0); CARBON DIOXIDE 29 mmol/L (21-32); CHLORIDE 105 mmol/L (98-107); CREATININE 2.9 mg/dL (0.6-1.3); GLUCOSE 98 mg/dL (74-106); POTASSIUM 4.1 mmol/L (3.5-5.1); SODIUM SERUM 141 mmol/L (136-145); TOTAL PROTEIN, SERUM 6.7 g/dL (6.4-8.2); UREA NITROGEN, BLOOD 36 mg/dL (7-18)
[2017-09-23 07:39] LABS: INR 0.98 (0.87-1.13)
[2017-09-23 07:46] LABS: THYROID STIMULATING HORMONE 1.385 uIU/mL (0.358-3.74)
[2017-09-23 07:52] LABS: IRON, SERUM 41 ug/dl (50-175); TOTAL IRON BINDING CAPACITY 210 ug/dl (250-450)
[2017-09-23 08:00] VITALS: BP 133/70
[2017-09-23] MEDS: METOLAZONE 2.5 MG TABLET PO SCH (08:23)
[2017-09-23] MEDS: NIFEdipine XL 60 MG TAB PO SCH (08:23)
[2017-09-23] MEDS: ALBUTEROL FS 2.5 MG/3 ML VIAL.NEB NEB SCH ×4 (08:32→20:45)
[2017-09-23] MEDS: FUROSEMIDE 100 MG/10 ML VIAL IV SCH ×3 (10:56→17:34)
[2017-09-23 16:00] VITALS: BP 143/66
--- NOTE | 2017-09-23 19:27 | NUR ---
ms rn closing notes All needs provided, attended, and anticipated, kept patient clean and comfortable in bed, call light with in patient reach, endorsed to next shift RN to continue care.
--- NOTE | 2017-09-23 19:30 | NUR ---
MS RN OPENING NOTES PT RECEIVED SITTING IN BED, A & O X 4, VERBALLY RESPONSIVE. ON O2 @ 2 LMP, RESPIRATIONS EVEN, UNLABORED, NO APPARENT DISTRESS NOTED. DENIES ANY PAIN AT THIS TIME. IV SITE MARGAUX MIDLINE INTACT, PATENT. SEGAL CATH IN PLACE DRAINING YELLOW, CLEAR URINE. CALL LIGHT WITHIN REACH. BED LOCKED IN LOWEST POSITION. WILL KEEP CLEAN AND COMFORTABLE. WILL CONTINUE TO MONITOR ACCORDINGLY.
[2017-09-23] MEDS: ATORVASTATIN 40 MG TABLET PO SCH (22:18)
[2017-09-23] MEDS: ENOXAPARIN SODIUM 30 MG/0.3 ML DISP.SYRIN SQ SCH (22:19)
[2017-09-24] MEDS: ZOLPIDEM TARTRATE 10 MG TABLET PO PRN (00:35)
--- NOTE | 2017-09-24 00:35 | NUR ---
PRN AMBIEN GIVEN PATIENT ASKED TO TAKE SLEEPING PILL FOR SLEEPLESSNESS. AMBIEN GIVEN ORDERED. WILL MONITOR FOR THE EFFECTIVENESS.
--- NOTE | 2017-09-24 02:30 | NUR ---
RADHA INITIAL NOTES CHECKED PT AFTER GOT REPORT FROM [facility] FOR CONTINUITY OF CARE. PT SLEEPING AT THIS TIME AFTER SLEEP MED GIVEN EARLIER. BREATHING EVEN AND UNLABORED. NOT IN ANY ACUTE DISTRESS NOTED. KEPT HER WARM AND COMFORTABLE AT ALL TIMES. PLACE CALL LIGHT AT REACH. WILL CONTINUE MONITORING.
[2017-09-24] MEDS: hydrALAZINE HCL 50 MG TABLET PO SCH ×2 (05:54→13:09)
[2017-09-24 06:33] LABS: BASOPHILS % (AUTO) 0.5 % (0.0-2.0); EOSINOPHILS # (AUTO) 0.6 /CMM (0.0-0.7); EOSINOPHILS % (AUTO) 11.1 % (0.0-6.0); HEMATOCRIT 30 % (33-45); LYMPHOCYTES # (AUTO) 0.8 /CMM (0.8-4.8); LYMPHOCYTES % (AUTO) 13.1 % (20.0-44.0); MEAN CORPUSCULAR HEMOGLOBIN 30 PG (26.0-33.0); MEAN CORPUSCULAR HGB CONC 34 g/dl (31.0-36.0); MEAN CORPUSCULAR VOLUME 89 fL (82-100); MONOCYTES # (AUTO) 0.5 /CMM (0.1-1.30); MONOCYTES % (AUTO) 8.5 % (2.0-12.0); NEUTROPHILS # (AUTO) 3.8 /CMM (1.8-8.9); NEUTROPHILS % (AUTO) 66.8 % (43.0-81.0); PLATELET COUNT (AUTO) 208 /CMM (150-450); RDW COEFFICIENT OF VARIATION 15.3 (11.5-15.0); RED BLOOD CELL COUNT(AUTO) 3.33 MIL/uL (4.0-5.2); WHITE BLOOD COUNT (AUTO) 5.7 K/uL (4.3-11.0)
[2017-09-24 07:20] LABS: TROPONIN I < 0.017 ng/mL (0.00-0.056)
[2017-09-24 07:30] LABS: ALANINE AMINOTRANSFERASE 13 U/L (12-78); ALBUMIN 2.7 g/dL (3.4-5.0); ALKALINE PHOSPHATASE 56 U/L (46-116); ASPARTATE AMINOTRANSFERASE 14 U/L (15-37); BILIRUBIN,TOTAL 0.5 mg/dL (0.2-1.0); CALCIUM, SERUM 8.6 mg/dL (8.5-10.1); CARBON DIOXIDE 31 mmol/L (21-32); CHLORIDE 104 mmol/L (98-107); CREATININE 3.2 mg/dL (0.6-1.3); GLUCOSE 88 mg/dL (74-106); MAGNESIUM 2.1 mg/dL (1.8-2.4); PHOSPHORUS 4.9 mg/dL (2.5-4.9); POTASSIUM 3.9 mmol/L (3.5-5.1); SODIUM SERUM 142 mmol/L (136-145); TOTAL PROTEIN, SERUM 6.6 g/dL (6.4-8.2); UREA NITROGEN, BLOOD 41 mg/dL (7-18)
--- NOTE | 2017-09-24 07:30 | NUR ---
MS COOK HELPER PASTRY CLOSING NOTES PT BACK TO SLEEP , MEDS GIVEN AND STABLE DALY THE NIGHT. NO SOB NOTED AND DENIES ANY PAIN OR ANY DISCOMFORT. SEGAL DRAINING WELL WITH CLEAR YELLOW OUTPUT NOTED. ALL NEEDS MET. KEPT HER WARM AND COMFORTABLE AT ALL TIMES. PLACE CALL LIGHT AT REACH. ENDORSE TO AM NURSE FOR CONTINUITY OF CARE.
[2017-09-24] MEDS: ALBUTEROL FS 2.5 MG/3 ML VIAL.NEB NEB SCH ×4 (07:35→15:42)
[2017-09-24 08:00] VITALS: BP 142/68
--- NOTE | 2017-09-24 08:23 | NUR ---
RN Initial Notes Patient alert and oriented x4, breathing even and unlabored, no shortness of breath noted, per patient she feels better, denies pain or discomfort, rose catheter with clear yellow urine draining. Needs attended, patient refusing breakfast at this time. Patient seen by Dr. Weems, asked to check room air o2 saturation. Patient placed in room air, o2 sat shows 92-93%. Patient kept in room air, instructed patient if she feels short of breath, to call the nurse. Call light within reach, will continue to monitor.
[2017-09-24] MEDS ORDERED: METOLAZONE 2.5 MG TABLET PO SCH (09:00)
[2017-09-24] MEDS: FUROSEMIDE 100 MG/10 ML VIAL IV SCH ×3 (09:11→16:55)
[2017-09-24] MEDS: NIFEdipine XL 60 MG TAB PO SCH (09:11)
[2017-09-24] MEDS ORDERED: ATOR40TA PO (13:14)
[2017-09-24] MEDS ORDERED: NIFE60TA69 PO (13:14)
[2017-09-24] MEDS ORDERED: METO2.5T7 PO (13:14)
--- NOTE | 2017-09-24 15:15 | NUR ---
RN Notes Patient a/ox4, in room air with no shortness of breath, able to ambulate with walker, rose catheter removed, urine bag with 1000ml of urine, patient voided x2 after rose was removed. Patient received discharge instructions and verbalized understanding and signed discharged paperworks. Patient stated she has no digital composer at this time, f/[facility] appointment [facility]. Reviewed medication regimen, discussed side effects, patient verbalized understanding. Per caseworker protective services, grand-daughter will supervisor picking crew the patient. Needs attended and met, call light within reach, will continue to monitor.
[2017-09-24 16:00] VITALS: BP 133/69
--- NOTE | 2017-09-24 17:24 | NUR ---
medical asst Note Patient refused Furosemide 80mg IV, per patient "i dont want to have an accident in the car" Explained risks and benefits, still refused. Granddaughter came, explained discharge instructions again, verbalized understanding. MARGAUX Midline removed, pressure applied, no bleeding noted. Skin assessment completed, skin dry and intact. Belongings reconciled and complete. Patient left via wheelchair, in no distress assisted by Granddaughter.
== END 2017-09-24 17:00 | disposition home or self-care (01) | DRG 981 ==
LOC: ER 11:24 → TELE 14:44 → MED 09-21 09:18
PROVIDERS: ADMIT Internal Medicine; ATTEND Internal Medicine
PROC: 05H533Z Insertion of Infusion Device into Right Subclavian Vein, Percutaneous Approach (ICD-10-PCS; 2017-09-20)
PROC: B546ZZA Ultrasonography of Right Subclavian Vein, Guidance (ICD-10-PCS; 2017-09-20)
PROC: 0W994ZZ Drainage of Right Pleural Cavity, Percutaneous Endoscopic Approach (ICD-10-PCS; principal; 2017-09-22)
DX: I11.0 Hypertensive heart disease with heart failure (principal); N17.0 Acute kidney failure with tubular necrosis; N18.4 Chronic kidney disease, stage 4 (severe); E44.0 Moderate protein-calorie malnutrition; J98.11 Atelectasis; J90 Pleural effusion, not elsewhere classified; I50.33 Acute on chronic diastolic (congestive) heart failure; E11.22 Type 2 diabetes mellitus with diabetic chronic kidney disease; I13.0 Hypertensive heart and chronic kidney disease with heart failure and stage 1 through stage 4 chronic kidney disease, or unspecified chronic kidney disease; Z88.6 Allergy status to analgesic agent; M47.814 Spondylosis without myelopathy or radiculopathy, thoracic region; Z88.5 Allergy status to narcotic agent; Z88.0 Allergy status to penicillin; Z88.2 Allergy status to sulfonamides; Z79.899 Other long term (current) drug therapy; Z79.82 Long term (current) use of aspirin; D63.8 Anemia in other chronic diseases classified elsewhere; E78.5 Hyperlipidemia, unspecified; I25.10 Atherosclerotic heart disease of native coronary artery without angina pectoris; E83.39 Other disorders of phosphorus metabolism; K21.9 Gastro-esophageal reflux disease without esophagitis; Z91.19 Patient's noncompliance with other medical treatment and regimen; Z87.891 Personal history of nicotine dependence; Z82.49 Family history of ischemic heart disease and other diseases of the circulatory system; I70.0 Atherosclerosis of aorta; E66.01 Morbid (severe) obesity due to excess calories; Z68.32 Body mass index [BMI] 32.0-32.9, adult; R09.02 Hypoxemia; R07.9 Chest pain, unspecified
CPT/HCPCS: 36415; 36600; 71045-TC; 76942-TC; 80048-TC; 80053-TC; 80061-TC; 80076-TC; 82728-TC; 82746; 83540-TC; 83735-TC; 83880; 84100-TC; 84443-TC; 84484-TC; 85025-TC; 85610-TC; 85730-TC; 87070-TC; 87075-TC; 87081-TC; 87102-TC; 89051-TC; 93307-TC; 94799-TC; 97110-TC; 97116-TC; 97530-TC; A4606; J1650; J1940; J2270; J2405; J3490; Z7610

== ENCOUNTER 2019-05-10 17:06 | Inpatient (IN) | payer MEDICARE, OTHER ==
[~2019-05-10] VITALS: Ht 172.7 cm; Wt 84.1 kg
[~2019-05-10 17:06] MED LIST changes: -ASPI-605 PO; -ATOR10TA PO; +ATOR40TA PO; -CARI350T PO; -CARV25TA2 PO; -CLON0.3T PO; -DOXA1TAB PO; -ISOS20TA8 PO; +METO2.5T7 PO; -NIFE30TA89 PO; -NIFE30TA91 PO; +NIFE60TA69 PO
--- NOTE | 2019-05-10 17:25 | NUR ---
PT [facility]. NEEDS DIALYSIS PER REPORT. PT TACHY AT 114 AND WARM TO TOUCH, TEMP AT 100.5. PT IS DIFFICULT TO AROUSE,BREATHING EVEN AND UNLABORED. PT CONNECTED TO THE MONITOR. WILL CONTINUE TO MONITOR.
--- NOTE | 2019-05-10 18:06 | NUR ---
urine collected and sent to lab
[2019-05-10] MEDS ORDERED: POLY15DR31 OP (18:10)
[2019-05-10] MEDS ORDERED: CLOP75TA15 PO (18:10)
[2019-05-10] MEDS ORDERED: FAMO-131 PO (18:10)
[2019-05-10] MEDS ORDERED: ALBU2.5V13 IH (18:10)
[2019-05-10] MEDS ORDERED: ACET-73 PO (18:10)
[2019-05-10] MEDS ORDERED: ATRO5DRP OP (18:10)
[2019-05-10] MEDS ORDERED: NUT.237L67 PO (18:10)
[2019-05-10] MEDS ORDERED: BISA10SU11 RC (18:10)
[2019-05-10] MEDS ORDERED: NUT.237L30 GT (18:10)
[2019-05-10] MEDS ORDERED: INSU100I4 SQ (18:10)
[2019-05-10] MEDS ORDERED: EPOE3000 IJ (18:10)
[2019-05-10] MEDS ORDERED: HEPA500013 IJ (18:10)
[2019-05-10] MEDS ORDERED: NYST15CR TP (18:10)
--- NOTE | 2019-05-10 18:45 | NUR ---
MIDLINE NURSE COMING AT 10PM
--- NOTE | 2019-05-10 19:13 | NUR ---
report given to Francisco COBOS for edgar.
--- NOTE | 2019-05-10 20:01 | NUR ---
IV ACCESS INITIATED. UNABLE TO OBTAIN BLOOD.
--- NOTE | 2019-05-10 20:21 | NUR ---
BLOOD DRAWN AND GIVEN TO LAB
[2019-05-10 20:30] LABS: BASOPHILS % (AUTO) 0.3 % (0.0-2.0); EOSINOPHILS % (AUTO) 3.9 % (0.0-6.0); HEMATOCRIT 25 % (33-45); HEMOGLOBIN 8.2 g/dL (11.5-14.8); LYMPHOCYTES # (AUTO) 0.7 /CMM (0.8-4.8); MEAN CORPUSCULAR HGB CONC 33 g/dl (31.0-36.0); MEAN CORPUSCULAR VOLUME 96 fL (82-100); MONOCYTES # (AUTO) 0.7 /CMM (0.1-1.30); NEUTROPHILS # (AUTO) 12.1 /CMM (1.8-8.9); NEUTROPHILS % (AUTO) 85.8 % (43.0-81.0); PLATELET COUNT (AUTO) 272 /CMM (150-450); RED BLOOD CELL COUNT(AUTO) 2.58 MIL/uL (4.0-5.2); WHITE BLOOD COUNT (AUTO) 14.1 K/uL (4.3-11.0)
[2019-05-10 20:50] LABS: ALANINE AMINOTRANSFERASE 11 U/L (12-78); ALKALINE PHOSPHATASE 131 U/L (46-116); ASPARTATE AMINOTRANSFERASE 36 U/L (15-37); BILIRUBIN,DIRECT 0.2 mg/dL (0.0-0.2); BILIRUBIN,TOTAL 0.6 mg/dL (0.2-1.0); CARBON DIOXIDE 27 mmol/L (21-32); CHLORIDE 102 mmol/L (98-107); CREATININE 7.1 mg/dL (0.6-1.3); GLUCOSE 235 mg/dL (74-106); POTASSIUM 3.9 mmol/L (3.5-5.1); SODIUM SERUM 141 mmol/L (136-145); TOTAL PROTEIN, SERUM 6.6 g/dL (6.4-8.2)
[2019-05-10 20:51] LABS: UREA NITROGEN, BLOOD 96 mg/dL (7-18)
[2019-05-10] MEDS ORDERED: VANCOMYCIN 1 GM in IV D5W 250 ML IV ONE (21:00)
[2019-05-10] MEDS ORDERED: MEROPENEM 500 MG in IV NS 0.9% 50 ML IV ONE (21:00)
[2019-05-10] MEDS ORDERED: MEROPENEM 500 MG VIAL IV ONE (21:01)
[2019-05-10] MEDS ORDERED: VANCOMYCIN 1 GM VIAL ONE (21:01)
[2019-05-10] MEDS ORDERED: ACETAMINOPHEN 325 MG TABLET PO PRN (22:00)
[2019-05-10] MEDS ORDERED: ONDANSETRON HCL/PF 4 MG/2 ML VIAL IVP PRN (22:00)
[2019-05-10] MEDS ORDERED: MAGNESIUM HYDROXIDE 30 ML UDC PO PRN (22:00)
[2019-05-10] MEDS ORDERED: MAG HYDROX/AL HYDROX/SIMETH 30 ML UDC PO PRN (22:00)
[2019-05-10] MEDS ORDERED: BISACODYL SUPP (10 MG) 10 MG/SUPP.RECT SUPP.RECT RC PRN (22:00)
[2019-05-10] MEDS ORDERED: Z GUARD REMEDY 2 OZ OINT TP PRN (22:00)
[2019-05-10] MEDS ORDERED: ALBUTEROL FS 2.5 MG/0.5 ML VIAL.NEB IH PRN (22:00)
--- NOTE | 2019-05-10 22:26 | NUR ---
REPORT GIVEN TO PAPITO GREEN FOR ARIAN
[2019-05-10] MEDS ORDERED: DEXTROSE 50%-WATER 50 ML DISP.SYRIN IV PRN (22:30)
[2019-05-10 22:32] VITALS: BP 125/59
--- NOTE | 2019-05-10 22:32 | NUR ---
MANAGER RETAIL SALESPAPER SORTER NOTES Admitted this patient from ER accompanied by 2 ER staff. Received patient A/O x1, responsive to pain. On RA, no SOB/respiratory distress noted, saturating 97%. Transferred to bed comfortably with 3 person assist. Admission routine done. No belongings noted. Admission orders noted and carried out. GTF clarified with admitting MD. Initial skin assessment done, photos taken and documented. Kept patient on bed clean, dry and comfortable. Call light within easy reach.
[2019-05-10 22:33] LABS: APPEARANCE,URINE Cloudy (CLEAR); BILIRUBIN,URINE SMALL (NEGATIVE); BLOOD, URINE Moderate Ery/uL (NEGATIVE); COLOR,URINE Other (YELLOW); KETONES,URINE Negative (NEGATIVE); LEUKOCYTE ESTERASE ,URINE Large (NEGATIVE); NITRITE, URINE Negative (NEGATIVE); PROTEIN,URINE >=300 mg/dl (NEGATIVE); UGLUCOSE Negative (NEGATIVE); UROBILINOGEN,URINE 0.2 EU/dL (0.2)
[2019-05-10 23:05] LABS: BACTERIA,URINE Few /HPF (None Seen); SQUAMOUS EPITHELIAL CELL,UR Moderate /HPF (None Seen); WBC,URINE TOO NUMEROUS TO COUN /HPF (0-3); YEAST,URINE Few /HPF (None Seen)
[2019-05-11] VITALS: BP 140/68
[2019-05-11] MEDS ORDERED: GLUCERNA 1.2 1,000 ML BOTTLE GT PRN
[2019-05-11] MEDS: BLOOD SUGAR DIAGNOSTIC 1 EACH STRIP IN SCH ×4 (00:30→18:11)
[2019-05-11] MEDS: INSULIN REGULAR, HUMAN 100 UNIT/ML 3 ML VIAL SQ PRN ×3 (00:31→18:12)
--- NOTE | 2019-05-11 00:32 | NUR ---
ACQUISITION MANAGER NOTES BS checked - 229. Administered Insulin as ordered. Initiated GTF as ordered via PEG, placement verified. Will continue to monitor accordingly.
--- NOTE | 2019-05-11 01:32 | NUR ---
DISPATCHER CLERK NOTES Patient noted with her L hand constantly scratching on the should especially on the R should with perma cath. Patient is confused, mildly agitated, unable to follow commands. Medical restraint ordered by MD etl consultant. Applied to L hand mitten. Will continue to monitor accordingly.
[2019-05-11 04:00] VITALS: BP 120/60
--- NOTE | 2019-05-11 06:36 | NUR ---
DEVELOPMENT EXPERT CLOSING NOTES Patient asleep, responsive to pain. With GTF infusing well Glucerna 1.2 @ 40ml/hr as ordered, abdomen remained soft and non-tender. No N/V/D/C noted. PEG site noted with erythema and a lot of foul purulent secretion noted. Dressing changed accordingly. Repositioned every 2hrs. No signs of discomfort noted at this time. On tele monitor with NSR noted. On RA, no SOB/respiratory distress noted at this time. Kept HOB elevated, on aspiration precaution. All nursing needs attended, kept on bed clean, dry and comfortable. On fall precautions. For wound and dietary consult. Endorsed to the next shift.
[2019-05-11] MEDS ORDERED: FEE PK DOSING 1 MIN EA MC ONE (06:40)
[2019-05-11] MEDS ORDERED: VANCOMYCIN 500 MG in IV D5W 100 ML IV PRN (07:00)
[2019-05-11] MEDS ORDERED: POLYVINYL ALCOHOL 15 ML BOTTLE OP PRN (07:00)
[2019-05-11 07:29] LABS: BASOPHILS % (AUTO) 0.3 % (0.0-2.0); EOSINOPHILS % (AUTO) 6.1 % (0.0-6.0); HEMATOCRIT 25 % (33-45); HEMOGLOBIN 8.3 g/dL (11.5-14.8); LYMPHOCYTES # (AUTO) 0.6 /CMM (0.8-4.8); LYMPHOCYTES % (AUTO) 5.4 % (20.0-44.0); MEAN CORPUSCULAR HGB CONC 34 g/dl (31.0-36.0); MEAN CORPUSCULAR VOLUME 96 fL (82-100); MONOCYTES # (AUTO) 0.5 /CMM (0.1-1.30); MONOCYTES % (AUTO) 4.3 % (2.0-12.0); NEUTROPHILS # (AUTO) 8.8 /CMM (1.8-8.9); NEUTROPHILS % (AUTO) 83.9 % (43.0-81.0); PLATELET COUNT (AUTO) 270 /CMM (150-450); RED BLOOD CELL COUNT(AUTO) 2.59 MIL/uL (4.0-5.2); WHITE BLOOD COUNT (AUTO) 10.6 K/uL (4.3-11.0)
[2019-05-11 07:32] LABS: CHOLESTEROL 85 mg/dL (<200); HDL CHOLESTEROL 20 mg/dL (40-60); LDL 37 mg/dL (0-99); THYROID STIMULATING HORMONE 2.656 uIU/mL (0.358-3.74); TRIGLYCERIDES 186 mg/dL (30-150)
[2019-05-11 07:41] LABS: CALCIUM, SERUM 8.5 mg/dL (8.5-10.1); CARBON DIOXIDE 28 mmol/L (21-32); CHLORIDE 103 mmol/L (98-107); GLUCOSE 194 mg/dL (74-106); MAGNESIUM 3.2 mg/dL (1.8-2.4); PHOSPHORUS 1.7 mg/dL (2.5-4.9); POTASSIUM 3.9 mmol/L (3.5-5.1); SODIUM SERUM 143 mmol/L (136-145)
[2019-05-11 07:58] LABS: CREATININE 7.7 mg/dL (0.6-1.3); UREA NITROGEN, BLOOD 98 mg/dL (7-18)
[2019-05-11 08:00] VITALS: BP 112/59
--- NOTE | 2019-05-11 08:00 | NUR ---
MS RN RECEIVED ON BED, AWAKE,NON VERBAL PATIENT, HD DEPENDENT, NOT IN ANY FORM OF DISTRESS, RESPIRATIONS EVEN AND UNLABORED,NO SOB NOTED, G TUBE FEEDING ON AT 40ML/HR.TOLERATED WELL W/O RESIDUAL. WILL MONITOR PATIENT PATIENT'S CONDITION.
[2019-05-11] MEDS ORDERED: NEPRO VAN 237 ML CAN PO SCH (09:00)
[2019-05-11] MEDS: CLOPIDOGREL BISULFATE 75 MG TABLET PO SCH (09:14)
[2019-05-11] MEDS: HEPARIN SODIUM, PORCINE 5000 UNITS/1 ML VIAL SQ SCH ×2 (09:15→18:09)
[2019-05-11] MEDS: FAMOTIDINE (20 MG) 20 MG TABLET PO SCH (09:15)
--- NOTE | 2019-05-11 09:40 | NUR ---
MS PAPITO DUE MEDS GIVEN, VIA G TUBE, TOLERATED WELL.
[2019-05-11 10:47] LABS: BAND % (MANUAL) 1 % (0.0-5.0); EOSINOPHILS % (MANUAL) 10 % (0-4); LYMPHOCYTES % (MANUAL) 7 % (16-48); MONOCYTES % (MANUAL) 3 % (0-11.0); NEUTROPHILS % (MANUAL) 79 (42-76)
--- NOTE | 2019-05-11 10:52 | NUR ---
WOUND CARE CONSULT: PT PRESENTS WITH STAGE 3 ULCER TO SACRUM, PRESENT ON ADMISSION. SOME LEAKAGE NOTED AROUND G TUBE. DEFER TO MD FOR G TUBE SITE. RECOMMEND SURGICAL CONSULT FOR SACRAL WOUND. DR HERNANDEZ NOTIFIED OF CONSULT REQUEST. PT TO BE PLACED ON FIRST STEP LOW AIRLOSS MATTRESS. RECOMMENDATIONS MADE FOR SKIN PROTECTION. DISCUSSED WITH NURSING STAFF. DEFER TO SURGICAL TEAM FOR WOUND TREATMENT PLAN. WILL SEE AKIRA. IN AGREEMENT WITH PLAN OF CARE. Addendum: 05/11/19 at 1054 by JEAN CLAUDE FORREST WNDNU Amended: Links added.
[2019-05-11] MEDS: PANTOPRAZOLE 40 MG VIAL IV SCH (11:36)
[2019-05-11] MEDS: NYSTATIN CREAM 15 GM TUBE TP SCH ×3 (11:58→18:14)
[2019-05-11] MEDS ORDERED: POTASSIUM PHOSPHATE MM 7.5 MMOL in IV D5W 100 ML IV SCH (12:00)
--- NOTE | 2019-05-11 12:00 | NUR ---
ms wilcox bs-[id number]- no coverAGE GIVEN ,PT IS NPO.
[2019-05-11] MEDS ORDERED: VITAMINS A AND D 56.7 GM TUBE TP PRN (15:00)
--- NOTE | 2019-05-11 15:00 | NUR ---
MS CANDY SUPERVISOR STARTED,TOLERATED WELL.
[2019-05-11 16:00] VITALS: BP 103/55
[2019-05-11] MEDS: NYSTATIN TOP POWDER 15 GM BOTTLE TP SCH ×2 (17:00→18:10)
--- NOTE | 2019-05-11 18:00 | NUR ---
ms jeri hd done w/ 1700ml out,all needs attended, due meds given.
[2019-05-11] MEDS: HYDROGEL DRESSING 90 GM TUBE TP SCH (18:10)
--- NOTE | 2019-05-11 18:17 | NUR ---
ms wilcox bs - 163 - 3 units of regular insulin given
--- NOTE | 2019-05-11 18:19 | NUR ---
ms rn on bed, no distress noted,all needs attended.
[2019-05-11] MEDS: NEPRO 1,000 ML BOTTLE GT PRN (18:56)
--- NOTE | 2019-05-11 19:42 | NUR ---
RN MS OPENING NOTES RECEIVED PT IN BED SLEEPING, EASILY AROUSED TO NAME CALL, BREATHING EVEN AND UNLABORED ON ROOM AIR. IN NO APPARENT PAIN OR DISCOMFORT AT THIS TIME. IV ACCESS ON THE L UA 20G SL. GTUBE FEEDING @40ML/HR TOLERATING WELL. BED IN LOCKED POSITION, CALL LIGHT WITHIN REACH AT ALL TIMES, WILL CONTINUE TO MONITOR FREQUENTLY.
[2019-05-11 20:00] VITALS: BP_SYST 121
[2019-05-11] MEDS: MEROPENEM 500 MG in IV NS 0.9% 50 ML IV SCH (21:48)
[2019-05-12] MEDS: BLOOD SUGAR DIAGNOSTIC 1 EACH STRIP IN SCH ×4 (00:22→18:37)
[2019-05-12] MEDS: INSULIN REGULAR, HUMAN 100 UNIT/ML 3 ML VIAL SQ PRN ×4 (00:23→18:40)
--- NOTE | 2019-05-12 06:01 | NUR ---
RN MS CLOSING NOTES PT REMAINS IN BED SLEEPING, EASILY AROUSED TO NAME CALL, BREATHING EVEN AND UNLABORED ON ROOM AIR. IN NO APPARENT PAIN OR DISCOMFORT AT THIS TIME. IV ACCESS ON THE L UA 20G SL AND R UPPER ARM MIDLINE, R UPPER CHEST HD CATH. GTUBE FEEDING @40ML/HR TOLERATING WELL 0 RESIDUAL. BED IN LOCKED POSITION, CALL LIGHT WITHIN REACH AT ALL TIMES, WILL ENDORSE TO DAY NURSE FOR ARIAN
[2019-05-12 08:00] VITALS: BP 92/60
--- NOTE | 2019-05-12 08:00 | NUR ---
ms rn received on bed,nonverbal, hd patient, gtube intact running at 40ml/hr, tolerating well w/o residual, no s/s of ditress,all needs attended.
[2019-05-12] MEDS: FAMOTIDINE (20 MG) 20 MG TABLET PO SCH (08:32)
[2019-05-12] MEDS: CLOPIDOGREL BISULFATE 75 MG TABLET PO SCH (08:32)
[2019-05-12] MEDS: PANTOPRAZOLE 40 MG VIAL IV SCH (08:32)
[2019-05-12] MEDS: NYSTATIN CREAM 15 GM TUBE TP SCH ×3 (08:33→18:38)
[2019-05-12] MEDS: HYDROGEL DRESSING 90 GM TUBE TP SCH (08:33)
[2019-05-12] MEDS: NYSTATIN TOP POWDER 15 GM BOTTLE TP SCH ×2 (08:34→18:38)
[2019-05-12] MEDS: HEPARIN SODIUM, PORCINE 5000 UNITS/1 ML VIAL SQ SCH ×2 (08:35→18:39)
--- NOTE | 2019-05-12 09:00 | NUR ---
ms jeri due meds given,via g tube, tolerated well.
--- NOTE | 2019-05-12 10:15 | NUR ---
ms rn was seen by dr. gilbert frances/ orders made and carried out.
[2019-05-12] MEDS: LACTOBACILLUS RHAMNOSUS GG 1 EACH CAP.SPRINK PO SCH ×2 (12:38→18:37)
--- NOTE | 2019-05-12 15:00 | NUR ---
MS RN WAS SEEN BY HD RN, ARTERIAL CATHETER IS CLOG, ALTAPLASE ORDERED.
[2019-05-12 15:04] LABS: BASOPHILS % (AUTO) 0.5 % (0.0-2.0); EOSINOPHILS % (AUTO) 5.8 % (0.0-6.0); HEMATOCRIT 21 % (33-45); LYMPHOCYTES # (AUTO) 0.3 /CMM (0.8-4.8); LYMPHOCYTES % (AUTO) 5.1 % (20.0-44.0); MEAN CORPUSCULAR HGB CONC 33 g/dl (31.0-36.0); MEAN CORPUSCULAR VOLUME 96 fL (82-100); MONOCYTES # (AUTO) 0.2 /CMM (0.1-1.30); MONOCYTES % (AUTO) 3.7 % (2.0-12.0); NEUTROPHILS # (AUTO) 5.5 /CMM (1.8-8.9); NEUTROPHILS % (AUTO) 84.9 % (43.0-81.0); PLATELET COUNT (AUTO) 255 /CMM (150-450); RED BLOOD CELL COUNT(AUTO) 2.23 MIL/uL (4.0-5.2); WHITE BLOOD COUNT (AUTO) 6.5 K/uL (4.3-11.0)
[2019-05-12 15:22] LABS: CARBON DIOXIDE 28 mmol/L (21-32); CHLORIDE 104 mmol/L (98-107); CREATININE 4.9 mg/dL (0.6-1.3); GLUCOSE 222 mg/dL (74-106); POTASSIUM 3.6 mmol/L (3.5-5.1); SODIUM SERUM 143 mmol/L (136-145); UREA NITROGEN, BLOOD 60 mg/dL (7-18)
[2019-05-12] MEDS ORDERED: ALTEPLASE CATHFLO 2 MG/VIAL XX ONE (15:30)
[2019-05-12] MEDS ORDERED: ALTEPLASE 100 MG/VIAL VIAL IV ONE (15:30)
[2019-05-12 16:00] VITALS: BP 123/56
--- NOTE | 2019-05-12 16:07 | NUR ---
MS RN ORDERED LABS FOR TODAY, FOR HUGO COBOS.
[2019-05-12 17:48] LABS: BAND % (MANUAL) 21 % (0.0-5.0); EOSINOPHILS % (MANUAL) 5 % (0-4); LYMPHOCYTES % (MANUAL) 9 % (16-48); MONOCYTES % (MANUAL) 7 % (0-11.0); NEUTROPHILS % (MANUAL) 58 (42-76)
--- NOTE | 2019-05-12 18:57 | NUR ---
MS RN ON BED, HD WAS NOT DONE TODAY DUE TO CLOTTED ACCESS, WILL MONITOR PATIENT
[2019-05-12 20:00] VITALS: BP 94/54
[2019-05-12] MEDS ORDERED: FLUCONAZOLE (100 MG) 100 MG TABLET GT ONE (21:30)
[2019-05-12] MEDS: MEROPENEM 500 MG in IV NS 0.9% 50 ML IV SCH (21:34)
[2019-05-13] MEDS ORDERED: FLUCONAZOLE (100 MG) 100 MG TABLET ONE
[2019-05-13] MEDS: BLOOD SUGAR DIAGNOSTIC 1 EACH STRIP IN SCH ×4 (00:03→18:42)
[2019-05-13] MEDS: INSULIN REGULAR, HUMAN 100 UNIT/ML 3 ML VIAL SQ PRN ×4 (00:09→18:42)
[2019-05-13] MEDS: NEPRO 1,000 ML BOTTLE GT PRN (05:21)
--- NOTE | 2019-05-13 06:16 | NUR ---
MS RN NOTES AWAKE & AROUSABLE. NOT IN ANY DISTRESS. NO SOB NOTED. NO S/SX OF ANY PAIN OR DISCOMFORT AT THIS TIME. WITH IV-HL PATENT & INTACT. CALL LIGHT WITHIN REACH. BED IN LOWEST POSITION. SR UP X 3 WITH BED ALARM ON FOR SAFETY. WILL ENDORSE TO NEXT SHIFT.
--- NOTE | 2019-05-13 07:25 | NUR ---
MS/RN NOTE THE PATIENT IS RECEIVED IN BED AND AWAKE. ALERT TO SELF. THE PATIENT LOOKS AT THE DIRECTION WHERE HER NAME IS CALLED. PATIENT IS NON-VERBAL. IN ROOM AIR. RESPIRATION REGULAR AND UNLABORED. NO MANIFESTATION OF RESPIRATORY DISTRESS OR PAIN AT THIS TIME. GT FEEDING NEPHRO INFUSING AT 40ML/HR. LAC G 24 PATENT AND SALINE LOCKED. BED LOW AND LOCKED. SIDE RAILS UP X3. CALL LIGHT WITHIN REACH. WILL CONTINUE TO MONITOR.
[2019-05-13 08:00] VITALS: BP_SYST 116; BP_DIAS 61; BP_DIAS 63
[2019-05-13 08:02] LABS: CALCIUM, SERUM 8.4 mg/dL (8.5-10.1); CARBON DIOXIDE 25 mmol/L (21-32); CHLORIDE 101 mmol/L (98-107); CREATININE 4.9 mg/dL (0.6-1.3); GLUCOSE 304 mg/dL (74-106); MAGNESIUM 2.7 mg/dL (1.8-2.4); PHOSPHORUS 1.7 mg/dL (2.5-4.9); POTASSIUM 4.2 mmol/L (3.5-5.1); SODIUM SERUM 138 mmol/L (136-145); UREA NITROGEN, BLOOD 60 mg/dL (7-18)
[2019-05-13] MEDS: FAMOTIDINE (20 MG) 20 MG TABLET PO SCH (08:28)
[2019-05-13] MEDS: LACTOBACILLUS RHAMNOSUS GG 1 EACH CAP.SPRINK PO SCH ×2 (08:28→17:33)
[2019-05-13] MEDS: PANTOPRAZOLE 40 MG VIAL IV SCH (08:28)
[2019-05-13] MEDS: CLOPIDOGREL BISULFATE 75 MG TABLET PO SCH (08:28)
[2019-05-13] MEDS: HEPARIN SODIUM, PORCINE 5000 UNITS/1 ML VIAL SQ SCH ×2 (08:31→17:34)
[2019-05-13] MEDS: NYSTATIN CREAM 15 GM TUBE TP SCH ×3 (09:19→17:35)
[2019-05-13] MEDS: HYDROGEL DRESSING 90 GM TUBE TP SCH (09:19)
[2019-05-13] MEDS: NYSTATIN TOP POWDER 15 GM BOTTLE TP SCH ×2 (09:19→17:35)
--- NOTE | 2019-05-13 10:36 | NUR ---
MS/RN NOTE RECEIVED NEW ORDER FROM DR SEVERINO FOR LEFT HAND MITTENS. NOTED AND CARRIED OUT.
[2019-05-13 11:38] LABS: BASOPHILS # (AUTO) 0.1 /CMM (0.0-0.2); BASOPHILS % (AUTO) 0.8 % (0.0-2.0); EOSINOPHILS % (AUTO) 3.7 % (0.0-6.0); HEMATOCRIT 23 % (33-45); HEMOGLOBIN 7.5 g/dL (11.5-14.8); LYMPHOCYTES # (AUTO) 0.3 /CMM (0.8-4.8); LYMPHOCYTES % (AUTO) 3.2 % (20.0-44.0); MEAN CORPUSCULAR HGB CONC 33 g/dl (31.0-36.0); MEAN CORPUSCULAR VOLUME 97 fL (82-100); MONOCYTES # (AUTO) 0.2 /CMM (0.1-1.30); MONOCYTES % (AUTO) 2.5 % (2.0-12.0); NEUTROPHILS # (AUTO) 7.3 /CMM (1.8-8.9); NEUTROPHILS % (AUTO) 89.8 % (43.0-81.0); PLATELET COUNT (AUTO) 264 /CMM (150-450); RED BLOOD CELL COUNT(AUTO) 2.37 MIL/uL (4.0-5.2); WHITE BLOOD COUNT (AUTO) 8.2 K/uL (4.3-11.0)
[2019-05-13] MEDS ORDERED: NEUTRA PHOS 1 POWD.PACKET GT ONE (15:00)
[2019-05-13 16:00] VITALS: BP 98/32
--- NOTE | 2019-05-13 19:12 | NUR ---
MS/RN NOTE THE PATIENT ALERT AND ORIENTED X1. NON-VERBAL. IN ROOM AIR AND SATURATION IS AT 97%. RESPIRATION REGULAR AND UNLABORED. NO MANIFESTATION OF DISTRESS NOTED. LAC G 24 PATENT AND SALINE LOCKED. NEPHRO INFUSING AT 40ML/HR AND NO RESIDUAL NOTED. ABDOMEN SOFT AND NON-DISTENDED. TURNING AND REPOSITIONING DONE. LEFT HAND MITTEN ON PER ORDER AND NO S/S POOR CIRCULATION OR SKIN PROBLEM NOTED. BED LOW AND LOCKED. SIDE RAILS UP X3. CALL LIGHT WITHIN REACH. WILL ENDORSE TO BUSINESS CONTINUITY MANAGEMENT DIRECTOR.
[2019-05-13 20:00] VITALS: BP 142/51
[2019-05-13] MEDS: MEROPENEM 500 MG in IV NS 0.9% 50 ML IV SCH (22:03)
[2019-05-14] MEDS: BLOOD SUGAR DIAGNOSTIC 1 EACH STRIP IN SCH ×5 (00:17→18:03)
[2019-05-14] MEDS: INSULIN REGULAR, HUMAN 100 UNIT/ML 3 ML VIAL SQ PRN ×4 (05:56→18:03)
--- NOTE | 2019-05-14 06:29 | NUR ---
MS RN NOTES AWAKE & AROUSABLE. NOT IN ANY DISTRESS. NO SOB NOTED. NO S/SX OF ANY PAIN OR DISCOMFORT AT THIS TIME. WITH IV-HL PATENT & INTACT. AM CARE DONE. MONITORED ACCORDINGLY. CALL LIGHT WITHIN REACH. BED IN LOWEST POSITION. SR UP X 3 WITH BED ALARM ON FOR SAFETY. WILL ENDORSE TO NEXT SHIFT.
[2019-05-14 07:10] LABS: CALCIUM, SERUM 8.4 mg/dL (8.5-10.1); CARBON DIOXIDE 25 mmol/L (21-32); CHLORIDE 105 mmol/L (98-107); CREATININE 5.8 mg/dL (0.6-1.3); GLUCOSE 218 mg/dL (74-106); PHOSPHORUS 1.2 mg/dL (2.5-4.9); POTASSIUM 3.8 mmol/L (3.5-5.1); SODIUM SERUM 145 mmol/L (136-145)
[2019-05-14 07:12] LABS: UREA NITROGEN, BLOOD 81 mg/dL (7-18)
--- NOTE | 2019-05-14 07:20 | NUR ---
MS RN OPENING NOTES RECEIVED PATIENT IN BED, ALERT AND AWAKE X1. HOB ELEVATED. NO SOB. NO EVIDENCE OF PAIN NOR DISCOMFORT. GT INTACT AND PATENT, NO RESIDUAL NOTED. OBSERVED GT STOMA SITE WOUND EDGES MACERATED WITH YELLOW SLOUGH, SURROUNDING AREA WITH ERYTHEMA AND FIRM TO TOUCH. DR. SEVERINO AWARE WITH ORDER TO HOLD GT FEEDING AT THIS TIME AND GI CONSULT. LEFT HAND MITTEN IN PLACE WITH SKIN AND CIRCULATION CHECK. BED IN LOWEST POSITION, LOCKED. FREQUENT VISUAL CHECK DONE.
[2019-05-14 08:00] VITALS: BP 95/43
[2019-05-14] MEDS: HEPARIN SODIUM, PORCINE 5000 UNITS/1 ML VIAL SQ SCH ×2 (09:54→16:10)
[2019-05-14] MEDS: CLOPIDOGREL BISULFATE 75 MG TABLET PO SCH (09:57)
[2019-05-14] MEDS: FAMOTIDINE (20 MG) 20 MG TABLET PO SCH (09:57)
[2019-05-14] MEDS: LACTOBACILLUS RHAMNOSUS GG 1 EACH CAP.SPRINK PO SCH ×2 (09:58→16:08)
[2019-05-14] MEDS: PANTOPRAZOLE 40 MG VIAL IV SCH (09:58)
[2019-05-14] MEDS: HYDROGEL DRESSING 90 GM TUBE TP SCH (10:05)
[2019-05-14] MEDS: NYSTATIN CREAM 15 GM TUBE TP SCH ×3 (10:05→16:13)
[2019-05-14] MEDS: NYSTATIN TOP POWDER 15 GM BOTTLE TP SCH ×2 (10:05→16:13)
--- NOTE | 2019-05-14 12:05 | NUR ---
MS RN NOTES BS 191MG/DL HELD INSULIN D/T GT FEEDING HELD
[2019-05-14] MEDS ORDERED: NEUTRA PHOS 1 POWD.PACKET PO ONE (15:30)
[2019-05-14 16:00] VITALS: BP 112/55
[2019-05-14 16:24] LABS: IRON, SERUM 105 ug/dl (50-175); TOTAL IRON BINDING CAPACITY 169 ug/dl (250-450)
[2019-05-14 17:02] LABS: FERRITIN 21513 ng/mL (8-388)
--- NOTE | 2019-05-14 18:00 | NUR ---
MS RN NOTES RELAYED US RESULT TO WILDA WITH ORDERS TO RESUME FEEDING. ENTERAL FEEDING INITIATED, NO RESIDUAL OBSERVED WITH PLACEMENT CHECKED DONE. BS 205 WITH 5 UNITS OF INSULIN GIVENAS ORDERED. GUILLAUME WELL
--- NOTE | 2019-05-14 18:58 | NUR ---
MS RN CLOSING NOTES ALERT, AWAKE ORIENTED X1. NON- HOB ELEVATED. NO SOB. VERBAL. RESPONSIVE TO VERBAL AND TACTILE STIMULI. LEFT CHESTWALL HD CATH INTACT. LEFT UPPER ARM #20 SL INTACT AND PATENT. WOUND CARE DONE GUILLAUME WELL. NO EVIDENCE OF PAIN NOR DISCOMFORT. IN NO APPARENT DISTRESS.
--- NOTE | 2019-05-14 19:30 | NUR ---
MS RN OPENING NOTES RECEIVED PATIENT FROM MORNING SHIFT, ALERT & ORIENTED X 1 NON-VERBAL. BREATHING REGULAR AND UNLABORED ON ROOM AIR. LEFT UPPER ARM IV LINE INTACT AND PATENT FLUSHING WELL WITH NO BLEEDING OR S/S OF INFECTION/INFILTRATION NOTED. GTUBE INTACT AND PATENT WITH NO RESIDUAL ASPIRATED. SEEN WITH REDNESS ON GTUBE SURROUNDING SITE, KEPT CLEAN AND DRY. RIGHT UPPER CHEST HD SITE INTACT WITH NO BLEEDING OR S/S OF INFECTION SEEN. DRESSING CLEAN AND DRY. LEFT HAND MITTENS ON, SKIN ASSESSMENT DONE, NO NOTED REDNESS OR S/S OF POOR CIRCULATION OBSERVED. NO S/SF PAIN/DISCOMFORT NOTED. BED LOW AND LOCKED ON SEMI FOWLERS POSITION. WILL CONTINUE TO MONITOR.
[2019-05-14 20:00] VITALS: BP 106/74
[2019-05-14] MEDS: MEROPENEM 500 MG in IV NS 0.9% 50 ML IV SCH (21:41)
--- NOTE | 2019-05-15 00:30 | NUR ---
MS RN NOTES BLOOD SUGAR OF 225mg/dl, 4UNITS OF REGULAR INSULIN GIVEN SQ. WILL CONTINUE TO MONITOR FOR S/S OF HYPO/HYPERGLYCEMIA.
[2019-05-15] MEDS: BLOOD SUGAR DIAGNOSTIC 1 EACH STRIP IN SCH ×5 (00:46→23:07)
[2019-05-15] MEDS: INSULIN REGULAR, HUMAN 100 UNIT/ML 3 ML VIAL SQ PRN ×5 (00:48→23:06)
--- NOTE | 2019-05-15 06:00 | NUR ---
MS RN NOTES BLOOD SUGAR OF 186mg/dl, 3UNITS OF REGULAR INSULIN GIVEN SQ. WILL CONTINUE TO MONITOR FOR S/S OF HYPO/HYPERGLYCEMIA.
--- NOTE | 2019-05-15 06:21 | NUR ---
MS RN CLOSING NOTES PATIENT IN BED ALERT & ORIENTED X 1 NON-VERBAL. BREATHING REGULAR AND UNLABORED ON ROOM AIR. LEFT UPPER ARM IV LINE INTACT AND PATENT FLUSHING WELL WITH NO BLEEDING OR S/S OF INFECTION/INFILTRATION NOTED. GTUBE INTACT AND PATENT WITH NO RESIDUAL ASPIRATED, TOLERATING WELL WITH NO EPISODE OF NAUSEA/VOMITING WITHIN THE SHIFT. RIGHT UPPER CHEST HD SITE INTACT WITH NO BLEEDING OR S/S OF INFECTION SEEN. DRESSING CLEAN AND DRY. LEFT HAND MITTENS ON, SKIN ASSESSMENT DONE, NO NOTED REDNESS OR S/S OF POOR CIRCULATION OBSERVED. NO S/SF PAIN/DISCOMFORT NOTED IN THE SHIFT. BED LOW AND LOCKED ON SEMI FOWLERS POSITION. WILL ENDORSE TO MORNING SHIFT FOR ARIAN.
[2019-05-15 08:00] VITALS: BP 108/40
--- NOTE | 2019-05-15 08:00 | NUR ---
ms rn received on bed, awake,little lethargic, nonverbal,hd patient, g tube intact w/ feeding on at 40ml/hr, no distress noted.
--- NOTE | 2019-05-15 09:00 | NUR ---
ms rn held am meds, patient is on hd at this time.
[2019-05-15] MEDS: FAMOTIDINE (20 MG) 20 MG TABLET PO SCH (11:52)
[2019-05-15] MEDS: PANTOPRAZOLE 40 MG VIAL IV SCH (11:52)
[2019-05-15] MEDS: CLOPIDOGREL BISULFATE 75 MG TABLET PO SCH (11:52)
[2019-05-15] MEDS: LACTOBACILLUS RHAMNOSUS GG 1 EACH CAP.SPRINK PO SCH ×2 (11:52→18:15)
[2019-05-15] MEDS: HEPARIN SODIUM, PORCINE 5000 UNITS/1 ML VIAL SQ SCH ×2 (12:04→18:33)
[2019-05-15] MEDS: NYSTATIN CREAM 15 GM TUBE TP SCH ×3 (12:06→18:34)
[2019-05-15] MEDS: HYDROGEL DRESSING 90 GM TUBE TP SCH (12:06)
[2019-05-15] MEDS: NYSTATIN TOP POWDER 15 GM BOTTLE TP SCH ×2 (12:07→18:34)
[2019-05-15] MEDS ORDERED: NEUTRA PHOS 1 POWD.PACKET GT ONE (12:30)
[2019-05-15 16:00] VITALS: BP 95/40
[2019-05-15] MEDS ORDERED: NEUTRA PHOS 1 POWD.PACKET PO ONE (18:00)
--- NOTE | 2019-05-15 18:00 | NUR ---
ms rn due meds given, blood culture still pending, all needs attended.
[2019-05-15] MEDS: PROSOURCE / PROSTAT (PYXIS) 30 ML UDC GT SCH (18:25)
[2019-05-15] MEDS: NEPRO 1,000 ML BOTTLE GT PRN (18:31)
--- NOTE | 2019-05-15 19:30 | NUR ---
RN INITIAL NOTES: RECEIVED REPORT FROM JANIYA COBOS. PT IN BED, NON VERBAL, ON RA RESPIRATIONS EVEN AND UNLABORED. NO FACIAL GRIMACE NOTED, APPEARS CALM AND COMFORTABLE. NOTED PERIODIC EPISODE OF COUGHING, NON PRODUCTIVE. PT HAS MARGAUX MIDLINE AND LEFT UA IV ACCESS, PATENT AND FLUSHING WELL, ON GL. NO S/S OF IV INFILTRATION NOTED. GTUBE CHECK: PT HAS GTUBE IN PLACED, ABDOMEN SOFT TO TOUCH WITH ACTIVE BOWEL SOUND HEARD UPON AUSCULTATION. CHECKED PT'S GTUBE RESIDUAL AND OBTAINED 160 ML OF MILKY SECRETIONS APPEARS TO BE FEEDING CONTENTS. FLUSHED GTUBE WITH 30ML OF WATER, NO RESISTANCE OBTAINED WHILE FLUSHING GTUBE. SAFETY PRECAUTIONS FOR FALL INITIATED, CALL LIGHT IN REACH, WILL CONTINUE MONITORING PT.
--- NOTE | 2019-05-15 19:45 | NUR ---
RN NOTES: RECEIVED WITH LEFT HAND MITTENS IN PLACED. PT ABLE TO MOVE AND WIGGLE ARMS, RADIAL PULSES PALPABLE AND INTACT. GOOD CAPILLARY REFILL NOTED. NO S/S OF IMPEDIMENT IN CIRCULATION NOTED. WILL CONTINUE MONITORING PT.
[2019-05-15 20:00] VITALS: BP 93/46
--- NOTE | 2019-05-15 21:00 | NUR ---
rn notes: noted medial sacral full thickness wound measuring 3.5cm x 0.5cm x0.1 cm, along with the old sacral area wound appears to be healing. wound care consult obtained for re-assessment/reevaluation of the said wound. pt on kci mattress, turning and repositoining pt q2hrs and as needed, ble offloaded. rn sane notified, made aware.
[2019-05-15] MEDS: MEROPENEM 500 MG in IV NS 0.9% 50 ML IV SCH (21:09)
[2019-05-15 22:00] VITALS: BP 110/63
--- NOTE | 2019-05-15 23:07 | NUR ---
ACCU CHECK: BLOOD GLUCOSE 211, 4 UNITS OF INSULIN GIVEN PER SLIDING SCALE. PT ON GTUBE FEEDING, NEPHRO AT 40CC/HR, LATEST RESIDUAL 100ML
--- NOTE | 2019-05-16 01:00 | NUR ---
rn notes: residual check obtained is 50ml. will continue monitoring pt.
--- NOTE | 2019-05-16 05:10 | NUR ---
am care and wound care: assisted distance learning administrator in providing bed bath to the pt, complete linen change provided, oral care provided, wound care performed at this time.
[2019-05-16] MEDS: BLOOD SUGAR DIAGNOSTIC 1 EACH STRIP IN SCH ×4 (05:42→23:02)
[2019-05-16] MEDS: INSULIN REGULAR, HUMAN 100 UNIT/ML 3 ML VIAL SQ PRN ×3 (05:43→23:05)
--- NOTE | 2019-05-16 05:43 | NUR ---
bllod glucose 119: blood glucose result is 119, no insulin coverage given per sliding scale. pt on gtube feeding, nephro at 40cc/hr
--- NOTE | 2019-05-16 06:47 | NUR ---
RN CLOSING NOTES: pt in bed, awake, remains non verbal, no facial grimace noted, appears calm and comfortable. iv access remains patent and flushing well, on hl. gtube remains in placed. current residual is 50 ml. ble offloaded. pt remains with left hand mitten in placed, radial pulse palpable and intact, pt able to move and wiggle arms and hands, with good capillary refill noted. no s/s of impediment in circulation noted. vs remains stable, needs attended. safety precautions for fall initiated, call light in reach, will continue monitoring pt.
--- NOTE | 2019-05-16 07:20 | NUR ---
MS RN OPENING NOTES RECEIVED PATIENT IN BED ASLEEP, EASILY AROUSED. A/O X1. PT TOLERATING RA, WITH NO ACUTE RESPIRATORY DISTRESS NOTED. PT EXHIBITS NO ANY PAIN OR DISCOMFORT AT THIS TIME. LEFT HAND MITTENS NOTED. PIV TO HENRY G20 SL AND MARGAUX MIDLINE, BOTH FLUSHED WITH NS, INTACT AND OPERATIONAL. RCW PERMACATH IN PLACE. PT KEPT COMFORTABLE. HOB ELEVATED. SAFETY MEASURES IN PLACE, BED IN LOWEST, LOCKED POSITION WITH SIDE RAILS UP X 3. CALL LIGHT KEPT WITHIN REACH. WILL CONTINUE PLAN OF CARE.
[2019-05-16 08:00] VITALS: BP_SYST 95; BP_SYST 97; BP_DIAS 49; BP_DIAS 57
[2019-05-16] MEDS: CLOPIDOGREL BISULFATE 75 MG TABLET PO SCH (08:27)
[2019-05-16] MEDS: FAMOTIDINE (20 MG) 20 MG TABLET PO SCH (08:27)
[2019-05-16] MEDS: PANTOPRAZOLE 40 MG VIAL IV SCH (08:28)
[2019-05-16] MEDS: HEPARIN SODIUM, PORCINE 5000 UNITS/1 ML VIAL SQ SCH ×2 (08:28→16:22)
[2019-05-16] MEDS: LACTOBACILLUS RHAMNOSUS GG 1 EACH CAP.SPRINK PO SCH ×2 (08:28→16:21)
[2019-05-16] MEDS: NYSTATIN TOP POWDER 15 GM BOTTLE TP SCH ×2 (08:34→16:25)
[2019-05-16] MEDS: NYSTATIN CREAM 15 GM TUBE TP SCH ×3 (08:34→16:25)
[2019-05-16] MEDS: HYDROGEL DRESSING 90 GM TUBE TP SCH (08:34)
[2019-05-16] MEDS: PROSOURCE / PROSTAT (PYXIS) 30 ML UDC GT SCH ×2 (08:41→16:26)
[2019-05-16 09:13] LABS: BASOPHILS # (AUTO) 0.1 /CMM (0.0-0.2); BASOPHILS % (AUTO) 0.8 % (0.0-2.0); EOSINOPHILS % (AUTO) 11.2 % (0.0-6.0); HEMATOCRIT 24 % (33-45); HEMOGLOBIN 7.8 g/dL (11.5-14.8); LYMPHOCYTES # (AUTO) 0.9 /CMM (0.8-4.8); LYMPHOCYTES % (AUTO) 12.5 % (20.0-44.0); MEAN CORPUSCULAR HGB CONC 33 g/dl (31.0-36.0); MEAN CORPUSCULAR VOLUME 96 fL (82-100); MONOCYTES # (AUTO) 0.4 /CMM (0.1-1.30); MONOCYTES % (AUTO) 5.9 % (2.0-12.0); NEUTROPHILS # (AUTO) 4.9 /CMM (1.8-8.9); NEUTROPHILS % (AUTO) 69.6 % (43.0-81.0); PLATELET COUNT (AUTO) 249 /CMM (150-450); WHITE BLOOD COUNT (AUTO) 7.1 K/uL (4.3-11.0)
[2019-05-16 09:14] LABS: CALCIUM, SERUM 8.6 mg/dL (8.5-10.1); CARBON DIOXIDE 25 mmol/L (21-32); CHLORIDE 103 mmol/L (98-107); CREATININE 4.5 mg/dL (0.6-1.3); GLUCOSE 132 mg/dL (74-106); POTASSIUM 4.7 mmol/L (3.5-5.1); SODIUM SERUM 142 mmol/L (136-145); UREA NITROGEN, BLOOD 53 mg/dL (7-18)
[2019-05-16 10:19] LABS: BAND % (MANUAL) 5 % (0.0-5.0); EOSINOPHILS % (MANUAL) 12 % (0-4); LYMPHOCYTES % (MANUAL) 19 % (16-48); METAMYELOCYTES % 1 % (0-0); MONOCYTES % (MANUAL) 2 % (0-11.0); MYELOCYTES % 6 % (0-0); NEUTROPHILS % (MANUAL) 55 (42-76)
[2019-05-16 16:00] VITALS: BP 95/57
--- NOTE | 2019-05-16 18:49 | NUR ---
MS RN CLOSING NOTES PATIENT IN BED INTERMITTENTLY DOZING OFF,EASILY AROUSED. A/O X1. PT TOLERATING RA, WITH NO ACUTE RESPIRATORY DISTRESS NOTED. PT EXHIBITS NO ANY PAIN OR DISCOMFORT AT THIS TIME. LEFT HAND MITTENS NOTED. PIV TO HENRY G20 SL AND MARGAUX MIDLINE, BOTH FLUSHED WITH NS, INTACT AND OPERATIONAL. RCW PERMACATH IN PLACE. PT KEPT COMFORTABLE. HOB ELEVATED. ALL NEEDS AND CARE PROVIDED. TURNED AND REPOSITIONED [id number]. SAFETY MEASURES IN PLACE, BED IN LOWEST, LOCKED POSITION WITH SIDE RAILS UP X 3. CALL LIGHT KEPT WITHIN REACH. WILL ENDORSE TO INCOMING NIGHT NURSE FOR ARIAN.
--- NOTE | 2019-05-16 19:35 | NUR ---
RN OPENING NOTES RECEIVED REPORT FROM MORENO NG. FOUND Pt AWAKE, RESTING IN BED. NO S/S OF ACUTE DISTRESS OR SOB NOTED. Pt IS A/OX1, NON-VERBAL, OPENS EYES AND TRACKS & FOLLOWS, BUT DOES NOT COMMUNICATE OR ANSWER QUESTIONS. HAD HX OF CVA WITH RT SIDED RESIDUAL WEAKNESS. HAS SACRAL WOUND STG 3. WILL TURN & REPOSITION Q2H. Pt HAS LT HAND SOFT MITTEN ONLY TO HELP PREVENT Pt FROM PULLING OUT RCW PERMACATH; Pt TENDS TO SCRATCH. NEPHRO @40ML/HR. IV ACCESS ON MARGAUX MIDLINE & HENRY #20G, SL. RCW HD PERMACATH. SAFETY MEASURES IN PLACE. BED LOW, LOCKED, HOB ELEVATED, SIDE RAILS UP, & BED ALARM ON.
[2019-05-16 20:07] VITALS: BP 107/71
[2019-05-16] MEDS: MEROPENEM 500 MG in IV NS 0.9% 50 ML IV SCH (22:31)
--- NOTE | 2019-05-17 | NUR ---
RN NOTES BG 232. ADMINISTERED 4UN OF INSULIN PER SLIDING SCALE VIA LT DELTOID. Pt ON CONTINUOUS GTF.
--- NOTE | 2019-05-17 00:30 | NUR ---
RN NOTES Pt's GTF RESIDUAL >120CC. STOPPED FEEDING FOR 30MIN. RECHECKED RESIDUAL, 60CC. WILL CONTINUE TO CHECK FEEDING RESIDUAL.
--- NOTE | 2019-05-17 04:30 | NUR ---
RN NOTES CHECKED FEEDING RESIDUAL >120CC. PAUSED FEEDING FOR 30MIN.
--- NOTE | 2019-05-17 05:00 | NUR ---
RN NOTES RECHECKED FEEDING RESIDUAL 10CC. RESTARTED FEEDING. FLUSHED WITH WATER.
--- NOTE | 2019-05-17 06:00 | NUR ---
RN NOTES BG 140. ADMINISTERED 2UN OF INSULIN PER SLIDING SCALE VIA LT DELTOID. Pt ON CONTINUOUS GTF.
[2019-05-17] MEDS: BLOOD SUGAR DIAGNOSTIC 1 EACH STRIP IN SCH ×3 (06:30→18:03)
[2019-05-17] MEDS: INSULIN REGULAR, HUMAN 100 UNIT/ML 3 ML VIAL SQ PRN (06:42)
--- NOTE | 2019-05-17 07:00 | NUR ---
RN CLOSING NOTES NO SIGNIFICANT CHANGES IN Pt's CONDITION. NO S/S OF ACUTE DISTRESS OR SOB NOTED DURING THE NIGHT. ALL NEEDS MET AND ATTENDED TO. SAFETY MEASURES IN PLACE. WILL ENDORSE TO DAYSHIFT RN FOR Pt's ARIAN.
[2019-05-17 07:25] LABS: BASOPHILS % (AUTO) 0.5 % (0.0-2.0); EOSINOPHILS % (AUTO) 22.5 % (0.0-6.0); HEMATOCRIT 21 % (33-45); LYMPHOCYTES # (AUTO) 0.8 /CMM (0.8-4.8); LYMPHOCYTES % (AUTO) 13.1 % (20.0-44.0); MEAN CORPUSCULAR HGB CONC 33 g/dl (31.0-36.0); MEAN CORPUSCULAR VOLUME 95 fL (82-100); MONOCYTES # (AUTO) 0.4 /CMM (0.1-1.30); MONOCYTES % (AUTO) 5.5 % (2.0-12.0); NEUTROPHILS # (AUTO) 3.7 /CMM (1.8-8.9); NEUTROPHILS % (AUTO) 58.4 % (43.0-81.0); PLATELET COUNT (AUTO) 261 /CMM (150-450); WHITE BLOOD COUNT (AUTO) 6.4 K/uL (4.3-11.0)
[2019-05-17 07:37] LABS: HEMOGLOBIN 6.8 g/dL (11.5-14.8)
[2019-05-17 07:46] LABS: CALCIUM, SERUM 8.3 mg/dL (8.5-10.1); CARBON DIOXIDE 25 mmol/L (21-32); CHLORIDE 102 mmol/L (98-107); CREATININE 5.2 mg/dL (0.6-1.3); GLUCOSE 143 mg/dL (74-106); MAGNESIUM 2.8 mg/dL (1.8-2.4); PHOSPHORUS 4.1 mg/dL (2.5-4.9); POTASSIUM 3.9 mmol/L (3.5-5.1); SODIUM SERUM 142 mmol/L (136-145); UREA NITROGEN, BLOOD 67 mg/dL (7-18)
--- NOTE | 2019-05-17 07:47 | NUR ---
MS/RN Critical lab Call received from lab -H&H Will notify Dr Landin.
--- NOTE | 2019-05-17 08:00 | NUR ---
MS/RN S/B Dr Landin Seen by Dr Landin - one unit of blood to be transfused, patient to be dialyzed and then discharged back to SNF.
[2019-05-17 08:18] LABS: BAND % (MANUAL) 3 % (0.0-5.0); LYMPHOCYTES % (MANUAL) 16 % (16-48); NEUTROPHILS % (MANUAL) 57 (42-76)
[2019-05-17 08:19] LABS: EOSINOPHILS % (MANUAL) 20 % (0-4); MONOCYTES % (MANUAL) 4 % (0-11.0)
--- NOTE | 2019-05-17 09:19 | NUR ---
MS/RN Exit care Exit care prepared ready for discharge after HDX and blood transfusion.
[2019-05-17] MEDS: FAMOTIDINE (20 MG) 20 MG TABLET PO SCH (09:22)
[2019-05-17] MEDS: LACTOBACILLUS RHAMNOSUS GG 1 EACH CAP.SPRINK PO SCH ×2 (09:22→16:54)
[2019-05-17] MEDS: PANTOPRAZOLE 40 MG VIAL IV SCH (09:22)
[2019-05-17] MEDS: CLOPIDOGREL BISULFATE 75 MG TABLET PO SCH (09:22)
[2019-05-17] MEDS: HEPARIN SODIUM, PORCINE 5000 UNITS/1 ML VIAL SQ SCH ×2 (09:23→17:58)
[2019-05-17] MEDS: HYDROGEL DRESSING 90 GM TUBE TP SCH (09:26)
[2019-05-17] MEDS: NYSTATIN CREAM 15 GM TUBE TP SCH ×3 (09:27→16:51)
[2019-05-17] MEDS: NYSTATIN TOP POWDER 15 GM BOTTLE TP SCH ×2 (09:29→16:51)
[2019-05-17] MEDS: PROSOURCE / PROSTAT (PYXIS) 30 ML UDC GT SCH ×2 (09:45→17:06)
--- NOTE | 2019-05-17 10:53 | NUR ---
MS/RN Turn and reposition Please see FILLER SHREDDER HELPER charting for turning and repositioning schedule.
--- NOTE | 2019-05-17 13:40 | NUR ---
MS/RN Blood transfusion One unit of PRBC now ready for transfusion, will administer with HDX.
[2019-05-17 15:40] VITALS: BP 97/43
--- NOTE | 2019-05-17 15:42 | NUR ---
MS/RN Blood transfusion One unit blood transfusion started with HDX. Vital signs recorded as per protocol.
[2019-05-17 15:57] VITALS: BP 122/54
--- NOTE | 2019-05-17 16:05 | NUR ---
MS/RN Blood transfusion complete One unit blood transfusion completed, vital signs stable throughout.
--- NOTE | 2019-05-17 18:05 | NUR ---
MS/RN HDX HDX completed, no output.
--- NOTE | 2019-05-17 18:05 | NUR ---
MS/watch train assembler Transport scheduled to black pickler patient at 2044.
--- NOTE | 2019-05-17 18:18 | NUR ---
MS/RN End note Patient remains in stable condition. AAll needs addressed, awaiting transport, scheduled at 2044.
[2019-05-17 20:00] VITALS: BP 103/65
[2019-05-17 20:15] VITALS: BP 103/65
--- NOTE | 2019-05-17 20:31 | NUR ---
RN NOTES CALLED [facility] . REPORT GIVEN TO BOBBY CASSIDY.
[2019-05-17] MEDS: MEROPENEM 500 MG in IV NS 0.9% 50 ML IV SCH (21:05)
--- NOTE | 2019-05-17 21:20 | NUR ---
RN NOTES ADMINISTERED MERREM IV ABX
--- NOTE | 2019-05-17 22:45 | NUR ---
RN NOTES [facility] HAS ARRIVED FOR TRANSPORT. REMOVED HENRY #20G IV ACCESS. SECURED WITH GAUZE AND TAPE. NO SIGNS OF BLEEDING NOTED. [facility] INTACT & PATENT. FLUSHED WITH NS. CALLED FACILITY AND SPOKE WITH KHANH ROSALES. UPDATED HIM OF THE MERREM GIVEN TO Pt AND THE HENRY IV ACCESS BEING REMOVED.
--- NOTE | 2019-05-17 22:53 | NUR ---
SIMULATION SOFTWARE ENGINEER NOTES Pt IS BEING TRANSPORTED BACK TO [facility]. REPORT GIVEN TO KHANH ROSALES. VS STABLE. Pt IS SAFELY BEING TRANSFERRED TO AMBULANCE [facility]. NO S/S OF ACUTE DISTRESS OR SOB NOTED. GT FLUSHED AND CLAMPED. ALL NEEDS MET AND ATTENDED TO. SAFETY MEASURES IN PLACE. Pt SAFELY TRANSPORTED OUT OF [facility].
== END 2019-05-17 22:55 | DRG 871 ==
LOC: ER 17:19 → TELE 22:14 → MED 05-11 11:39
PROVIDERS: ADMIT Nurse Practitioner Acute Care; ATTEND Internal Medicine
PROC: 5A1D70Z Performance of Urinary Filtration, Intermittent, Less than 6 Hours Per Day (ICD-10-PCS; principal; 2019-05-11)
PROC: 05HA33Z Insertion of Infusion Device into Left Brachial Vein, Percutaneous Approach (ICD-10-PCS; 2019-05-12)
PROC: 30233N1 Transfusion of Nonautologous Red Blood Cells into Peripheral Vein, Percutaneous Approach (ICD-10-PCS; 2019-05-17)
DX: A41.9 Sepsis, unspecified organism (principal); L89.153 Pressure ulcer of sacral region, stage 3; E43 Unspecified severe protein-calorie malnutrition; N18.6 End stage renal disease; J15.6 Pneumonia due to other Gram-negative bacteria; G92 Toxic encephalopathy; K94.22 Gastrostomy infection; I13.2 Hypertensive heart and chronic kidney disease with heart failure and with stage 5 chronic kidney disease, or end stage renal disease; L03.311 Cellulitis of abdominal wall; N39.0 Urinary tract infection, site not specified; L02.211 Cutaneous abscess of abdominal wall; J98.11 Atelectasis; I50.32 Chronic diastolic (congestive) heart failure; B49 Unspecified mycosis; E11.22 Type 2 diabetes mellitus with diabetic chronic kidney disease; Y83.3 Surgical operation with formation of external stoma as the cause of abnormal reaction of the patient, or of later complication, without mention of misadventure at the time of the procedure; Y92.129 Unspecified place in nursing home as the place of occurrence of the external cause; D63.1 Anemia in chronic kidney disease; E78.5 Hyperlipidemia, unspecified; E83.39 Other disorders of phosphorus metabolism; Z88.6 Allergy status to analgesic agent; Z88.1 Allergy status to other antibiotic agents; Z88.5 Allergy status to narcotic agent; Z88.0 Allergy status to penicillin; Z88.2 Allergy status to sulfonamides; Z79.4 Long term (current) use of insulin; Z79.51 Long term (current) use of inhaled steroids; Z79.01 Long term (current) use of anticoagulants; Z79.899 Other long term (current) drug therapy; Z99.2 Dependence on renal dialysis; Z86.73 Personal history of transient ischemic attack (TIA), and cerebral infarction without residual deficits; Z79.02 Long term (current) use of antithrombotics/antiplatelets; R13.10 Dysphagia, unspecified; M19.90 Unspecified osteoarthritis, unspecified site; L30.4 Erythema intertrigo; M10.9 Gout, unspecified; K58.9 Irritable bowel syndrome, unspecified; K21.9 Gastro-esophageal reflux disease without esophagitis; F41.9 Anxiety disorder, unspecified; I25.10 Atherosclerotic heart disease of native coronary artery without angina pectoris; I70.0 Atherosclerosis of aorta; J44.9 Chronic obstructive pulmonary disease, unspecified; Y95 Nosocomial condition; M48.00 Spinal stenosis, site unspecified; Z77.22 Contact with and (suspected) exposure to environmental tobacco smoke (acute) (chronic); D63.8 Anemia in other chronic diseases classified elsewhere; Z91.15 Patient's noncompliance with renal dialysis; L85.3 Xerosis cutis
CPT/HCPCS: 36415; 71045-TC; 76700-TC; 80048-TC; 80061-TC; 80076-TC; 80202-TC; 81000-TC; 82728-TC; 82962-TC; 83540-TC; 83605-TC; 83735-TC; 84100-TC; 84443-TC; 84484-TC; 85025-TC; 85730-TC; 86704; 86705; 86706; 86803; 86850-TC; 86921-TC; 87040-TC; 87070-TC; 87081-TC; 87086-TC; 87186-TC; 87340; 90935-TC; 97112-TC; 97530-TC; A4216; A6248; A6403; C9113; G0378; J1644; J1815; J2185; J2997; J3370; J3490; J7050; J7060; P9016-BL